=== PATIENT | female | born 1945 | race Caucasian/White ===

== ENCOUNTER → 2017-03-16 | Outpatient (CLI) | payer MEDICARE, OTHER ==
--- NOTE | 2017-03-16 15:26 | RADIOLOGY REPORT (SQ) ---
EXAM DESCRIPTION: HIPS BILATERAL COMPLETED DATE/TIME: 03/16/2017 3:06 pm REASON FOR STUDY: PAIN IN RIGHT HIP,PAIN IN LEFT HIP M25.552 PAIN IN LEFT HIP M25.551 PAIN IN RIGH T HIP COMPARISON: None. NUMBER OF VIEWS: Two views TECHNIQUE: AP pelvis and additional frog-leg view of both hips. LIMITATIONS: None. FINDINGS: MINERALIZATION: Normal. HIPS: There is mild narrowing of the joint space in the right hip. No significant osteophytes are se en. There is no acute fracture or dislocation. PELVIS AND SACRUM: No acute fracture or dislocation. No worrisome bone lesions. PUBIS AND ISCHIUM: No acute fracture. LOWER LUMBAR SPINE: Scoliosis and degenerative disc changes are present. SOFT TISSUES: No findings. OTHER: No other significant finding. IMPRESSION: Minimal degenerative joint changes in the right hip. Lumbar degenerative disc changes a nd scoliosis. TECHNICAL DOCUMENTATION: JOB ID: [id number] [employer]- All Rights Reserved
== END ==
LOC: OD 14:33
PROVIDERS: ATTEND Neurological Surgery
DX: M25.551 Pain in right hip (principal); M25.552 Pain in left hip
CPT/HCPCS: 73522

== ENCOUNTER 2017-05-14 14:58 | Emergency (ER) | payer MEDICARE, OTHER ==
[2017-05-14] MEDS ORDERED: NORMAL SALINE 500 ML IV PRN ×2 (15:24→17:23)
[2017-05-14] MEDS ORDERED: MORPHINE SULFATE 10 MG/ML INJ IV PRN (15:25)
[2017-05-14] MEDS ORDERED: METOCLOPRAMIDE HCL INJ/PF 10 MG/2 ML SDV IV ONE (15:25)
[2017-05-14] MEDS ORDERED: DIPHENHYDRAMINE HCL 50 MG/ML VIAL IV ONE (15:25)
--- NOTE | 2017-05-14 15:27 | ER Document Report ---
ED General - General Chief Complaint: Neck Problem Stated Complaint: NECK PAIN Time Seen by Provider: 05/14/17 15:15 Mode of Arrival: Ambulatory Information source: Patient Notes: This is a 72-year-old female with a history of hypertension, arthritis who presents to the emergency room with severe neck pain. Patient states that she was moving her head around last night and started having midline pain which got worse. She states that moving her neck causes sharp severe pain. She denies any fever, chills. He does report that she had developed nausea with vomiting. TRAVEL OUTSIDE OF THE [place] IN LAST 30 DAYS: No - HPI Onset: Just prior to arrival Onset/Duration: Gradual Quality of pain: Dull Severity: Moderate Pain Level: 2 Associated symptoms: Chills. denies: Fever, Shortness of breath Exacerbated by: Movement Relieved by: Denies Similar symptoms previously: No Recently seen / treated by doctor: No - Related Data Allergies/Adverse Reactions: acetaminophen [From Percocet] Allergy (Verified 05/14/17 15:01) amoxicillin [From Augmentin] Allergy (Verified 05/14/17 15:01) clavulanic acid [From Augmentin] Allergy (Verified 05/14/17 15:01) oxycodone [From Percocet] Allergy (Verified 05/14/17 15:01) Past Medical History - General Information source: Patient - Social History Smoking Status: Never Smoker Cigarette use (# per day): No Chew tobacco use (# tins/day): No Frequency of alcohol use: None Drug Abuse: None Lives with: Family Family History: Reviewed & Not Pertinent Patient has suicidal ideation: No Patient has homicidal ideation: No - Past Medical History Cardiac Medical History: Reports: Hx Hypertension Pulmonary Medical History: Reports: None Neurological Medical History: Reports: None Endocrine Medical History: Reports: None Renal/ Medical History: Reports: None Malignancy Medical History: Reports: None GI Medical History: Reports: None Musculoskeltal Medical History: Reports Hx Arthritis Skin Medical History: Reports None Psychiatric Medical History: Reports: None Traumatic Medical History: Reports: None Infectious Medical History: Reports: None Surgical Hx: Negative Review of Systems - Review of Systems Constitutional: Chills. denies: Fever EENT: No symptoms reported Cardiovascular: No symptoms reported Respiratory: No symptoms reported Gastrointestinal: No symptoms reported Genitourinary: No symptoms reported Female Genitourinary: No symptoms reported Musculoskeletal: See HPI Skin: No symptoms reported Hematologic/Lymphatic: No symptoms reported Neurological/Psychological: No symptoms reported. denies: Weakness, Paralysis, Numbness Physical Exam - Vital signs Vitals: Temp Pulse Resp BP Pulse Ox 97.4 F 71 16 136/53 H 96 05/14/17 15:00 05/14/17 15:00 05/14/17 15:00 05/14/17 15:00 05/14/17 15:00 Notes: Physical exam: GENERAL: 72-year-old female, alert, conversant, oriented 3. She is nontoxic appearing. HEAD: Atraumatic, normocephalic. EYES: Pupils equal round and reactive to light, extraocular movements intact, sclera anicteric, conjunctiva are normal. ENT: TMs normal, nares patent, oropharynx clear without exudates. Moist mucous membranes. NECK: Patient has limited range of motion due to spasm and pain. The pain appears to be midline. There is no swelling of the neck or any skin changes or warmth to the area. She does appear to have some sternocleidomastoid spasm on the right. There is no fluctuance or suggestive of infection. LUNGS: Breath sounds clear to auscultation bilaterally and equal. No wheezes rales or rhonchi. HEART: Regular rate and rhythm without murmurs, rubs or gallops. ABDOMEN: Soft, normoactive bowel sounds. No tenderness to palpation. No guarding, no rebound. No masses appreciated. EXTREMITIES: Normal range of motion, no pitting or edema. No clubbing or cyanosis. NEUROLOGICAL: Cranial nerves III through XII grossly intact. Normal speech, moving all extremities. Patient has no photophobia. The patient does not complain of significant headache at the time of my exam. She tolerates a light without any problem. PSYCH: Normal mood, normal affect. SKIN: Warm, Dry, normal turgor, no rashes or lesions noted. Course - Re-evaluation Re-evalutation: 05/14/17 17:25 Patient states that the neck pain did improve after Toradol and morphine. She tolerated the MRI fine. The results are pending. On review of her labs, she does have a leukocytosis. I again question her about the events: She denies having any fever, she does report to having chills. She has had a mild headache but she states it has been very tolerable. She has no photophobia at all. I reexamined her: She appears to have pain and spasm of the neck when she moves. She is nontoxic appearing, does not have photophobia, does not complain of a significant headache, her lungs are clear and her heart is regular and her abdomen is soft and nontender. We will check a chest x-ray and a urine. She did have spinal shots earlier in the week but they were in the lumbar region. She denies any significant lumbar pain. 05/14/17 18:36 Note: Patient would like to go home. I have reviewed the MRI with the radiologist which shows significant degenerative disease. There was a small amount of marrow edema that the radiologist felt looked more appropriate with a history of degenerative changes. In other words, there is no acute infectious process evident. On repeat physical exam, patient denies headache. She does have a lot of pain and spasm in the neck without any radicular findings or upper or lower extremity weakness. She has not had any bowel or bladder dysfunction or any saddle anesthesia. She does states she was pushing a cart at [facility] for approximately an hour yesterday because there were no motorized carts. It is possible that she is having a lot of pain associated with this. There are no skin changes around the neck suggestive of inflammation or infection. In regards to the leukocytosis, other than some chills, the patient has been asymptomatic. She has had UTIs in the past and I am going to treat her for an early UTI because she does have a leukocytosis. The patient did have a spinal injection 2 days ago. There is no skin changes over the site. She has had no significant lower back pain over where the injection was. So at this point, it is not clear that that would be the cause of leukocytosis. It may be possible that the steroid shot itself. I discussed this with Dr. Rene who agreed with the plan (he is covering for Dr. Aguilar). I told her that them in the ER tomorrow and we will see how she feels over the following day. Additionally, I have advised her to see Dr. Aguilar on Tuesday. 05/14/17 18:54 05/14/17 18:55 - Vital Signs Vital signs: Temp Pulse Resp BP Pulse Ox 97.4 F 71 16 136/53 H 96 05/14/17 15:05 05/14/17 15:05 05/14/17 15:05 05/14/17 15:05 05/14/17 15:05 - Laboratory Result Diagrams: 05/14/17 15:43 05/14/17 15:43 Laboratory results interpreted by me: 05/14/17 05/14/17 15:43 15:43 WBC 20.7 H RBC 5.41 H Hgb 15.6 H Seg Neuts % (Manual) 86 H Lymphocytes % (Manual) 5 L Abs Neuts (Manual) 17.8 H Abs Monocytes (Manual) 1.9 H Sodium 135.2 L Glucose 210 H - Diagnostic Test Radiology reviewed: Image reviewed, Reports reviewed - MRI shows significant degenerative disease. Discharge - Discharge Clinical Impression: Neck pain and spasm, UTI Condition: Stable Disposition: HOME, SELF-CARE Additional Instructions: As we discussed, the MRI showed significant degenerative disease in the neck. This in combination with pushing the cart for an hour yesterday could be contributing to the pain and spasm. You were started on levofloxacin for an early urine infection. Blood and urine cultures were sent and will take a few days to come back. Return to the emergency room tomorrow if you feel like the pain is getting worse , numbness or weakness to the upper extremities or any concerns or getting worse. I am in the emergency room tomorrow. Continue with the hydrocodone for pain (Rangely is the same thing as Vicodin). Continue the tizanidine for muscle spasms. Can use heating pad to the neck Follow-up with Dr. Aguilar on Tuesday. Prescriptions: Tizanidine HCl 2 mg PO Q8HP PRN #14 tablet PRN Reason: Hydrocodone/Acetaminophen [Rangely 5-325 Tablet] 1 - 2 tab PO ASDIR PRN #25 tab PRN Reason: Levofloxacin 500 mg PO DAILY #5 tablet Referrals: LYLE AGUILAR MD [Primary Care Provider] - Follow up as needed
[2017-05-14] MEDS ORDERED: KETOROLAC TROMETHAMINE INJ/PF 30 MG/1 ML SDV IV ONE (15:31)
[2017-05-14 15:55] LABS: HEMATOCRIT 45.8 % (36.0-47.0); HEMOGLOBIN 15.6 g/dL (12.0-15.5); MEAN CORPUSCULAR HEMOGLOBIN 28.8 pg (27.0-33.4); MEAN CORPUSCULAR VOLUME 85 fl (80-97); RED BLOOD COUNT 5.41 10^6/uL (3.72-5.28); RED CELL DISTRIBUTION WIDTH 13.6 % (11.5-14.0); WHITE BLOOD COUNT 20.7 10^3/uL (4.0-10.5)
[2017-05-14 16:12] LABS: ALANINE AMINOTRANSFERASE 30 U/L (9-52); ALBUMIN 4.3 g/dL (3.5-5.0); ALKALINE PHOSPHATASE 75 U/L (38-126); ANION GAP 13 (5-19); ASPARTATE AMINO TRANSFERASE 16 U/L (14-36); BASOPHILS % (MANUAL) 0 % (0-2); BILIRUBIN,DIRECT 0.2 mg/dL (0.0-0.4); BILIRUBIN,TOTAL 0.5 mg/dL (0.2-1.3); BLOOD UREA NITROGEN 15 mg/dL (7-20); CALCIUM 9.4 mg/dL (8.4-10.2); CARBON DIOXIDE 24 mmol/L (22-30); CHLORIDE 98 mmol/L (98-107); CREATININE RESULT 0.76 mg/dL (0.52-1.25); EOSINOPHILS % (MANUAL) 0 % (0-6); GLUCOSE 210 mg/dL (75-110); LYMPHOCYTES % (MANUAL) 5 % (13-45); SODIUM 135.2 mmol/L (137-145); TOTAL CELLS COUNTED 100; TOTAL PROTEIN 7.4 g/dL (6.3-8.2)
[2017-05-14 16:14] LABS: POLYCHROMASIA SLIGHT
[2017-05-14] MEDS ORDERED: MORPHINE SULFATE 10 MG/ML INJ IV ONE (17:16)
--- NOTE | 2017-05-14 17:30 | RADIOLOGY REPORT (SQ) ---
EXAM DESCRIPTION: MRI CERVICAL SPINE WITHOUT COMPLETED DATE/TIME: 05/14/2017 5:05 pm REASON FOR STUDY: neck pain COMPARISON: None. TECHNIQUE: Sagittal and Axial imaging includes T1, T2, STIR and gradient echo sequences. LIMITATIONS: None. FINDINGS: ALIGNMENT: Straightening of the normal lordotic curvature may be positional. VERTEBRAE: Intact. BONE MARROW: Marrow edema is seen involving the C3/4 level, consistent with active degenerative merino e. DISCS: Disc desiccation and loss of height is seen at all levels. HARDWARE: None in the spine. CORD AND BASE OF BRAIN: Normal in size and signal intensity. SOFT TISSUES: No soft tissue masses. C1-C2: No significant spinal stenosis. C2-C3: No significant spinal stenosis or exit foraminal stenosis. C3-C4: Disc osteophyte complex asymmetric to the left results an central canal narrowing and contouri ng of spinal cord. Moderate bilateral neural foraminal narrowing. C4-C5: Disc osteophyte complex asymmetric to the left results in mild narrowing of the central canal without cord contact. Mild bilateral neural foraminal narrowing. C5-C6: Disc osteophyte complex asymmetric to the left results in mild central canal narrowing and mod erate right, severe left neural foraminal narrowing. C6-C7: Uncovertebral hypertrophy, left greater than right results in moderate bilateral neural forami nal narrowing. C7-T1: No significant spinal stenosis or exit foraminal stenosis. UPPER THORACIC: Incompletely imaged. No significant spinal stenosis or exit foraminal stenosis. OTHER: No other significant finding. IMPRESSION: Multilevel cervical spondylosis most significantly at the C3/4 level which demonstrates central canal stenosis and contouring of the spinal cord. TECHNICAL DOCUMENTATION: JOB ID: [id number] [employer]- All Rights Reserved
--- NOTE | 2017-05-14 18:05 | RADIOLOGY REPORT (SQ) ---
EXAM DESCRIPTION: CHEST PA/LAT COMPLETED DATE/TIME: 05/14/2017 5:53 pm REASON FOR STUDY: leukocytosis COMPARISON: None. EXAM PARAMETERS: NUMBER OF VIEWS: two views TECHNIQUE: Digital Frontal and Lateral radiographic views of the chest acquired. RADIATION DOSE: NA LIMITATIONS: none FINDINGS: LUNGS AND PLEURA: No opacities, masses or pneumothorax. No pleural effusion. MEDIASTINUM AND HILAR STRUCTURES: No masses or contour abnormalities. HEART AND VASCULAR STRUCTURES: Heart normal size. No evidence for failure. BONES: No acute findings. Bilateral acromioclavicular arthropathy. HARDWARE: None in the chest. OTHER: No other significant finding. IMPRESSION: NO SIGNIFICANT RADIOGRAPHIC FINDING IN THE CHEST. TECHNICAL DOCUMENTATION: JOB ID: [id number] [employer]- All Rights Reserved
[2017-05-14 18:15] LABS: AMORPHOUS SEDIMENT,URINE TRACE /HPF; APPEARANCE,URINE CLEAR; BILIRUBIN,URINE NEGATIVE (NEGATIVE); GLUCOSE, URINE NEGATIVE (NEGATIVE); KETONES,URINE NEGATIVE (NEGATIVE); LEUKOCYTE ESTERASE,URINE NEGATIVE (NEGATIVE); NITRITE,URINE NEGATIVE (NEGATIVE); PROTEIN,URINE NEGATIVE (NEGATIVE); URINE SPECIFIC GRAVITY 1.002; UROBILINOGEN,URINE NEGATIVE mg/dL (<2.0)
[2017-05-14] MEDS ORDERED: LEVOFLOXACIN 500 MG TABLET PO ONE ×2 (18:30→18:48)
[2017-05-14] MEDS ORDERED: LEVOFLOXACIN 750 MG/D5W RTU 750 MG/150 ML RTUPB IV ONE (18:35)
[2017-05-14 19:22] VITALS: BP 146/64
== END 2017-05-14 19:06 | disposition home or self-care (01) ==
LOC: ER 14:58
DX: M47.9 Spondylosis, unspecified (principal); N39.0 Urinary tract infection, site not specified; M54.2 Cervicalgia; R11.2 Nausea with vomiting, unspecified; R68.83 Chills (without fever); R25.2 Cramp and spasm; D72.829 Elevated white blood cell count, unspecified; R51 Headache; I10 Essential (primary) hypertension; Z88.6 Allergy status to analgesic agent; Z88.5 Allergy status to narcotic agent; Z88.0 Allergy status to penicillin; Z98.890 Other specified postprocedural states
CPT/HCPCS: 96376; 99284; 96361; 96374; 96375; 36415; 87086; 85025; 80053; 81001; 72141; 71020; J1200; A9270; J1885; J2765; J2270; J7040

== ENCOUNTER 2017-05-16 17:21 | Inpatient (IN) | payer MEDICARE, OTHER ==
[2017-05-16 18:27] LABS: HEMATOCRIT 45.6 % (36.0-47.0); HEMOGLOBIN 15.7 g/dL (12.0-15.5); MEAN CORPUSCULAR HEMOGLOBIN 28.9 pg (27.0-33.4); MEAN CORPUSCULAR HGB CONC 34.3 g/dL (32.0-36.0); MEAN CORPUSCULAR VOLUME 84 fl (80-97); PLATELET COUNT 156 10^3/uL (150-450); RED BLOOD COUNT 5.42 10^6/uL (3.72-5.28); RED CELL DISTRIBUTION WIDTH 13.2 % (11.5-14.0); WHITE BLOOD COUNT 17.6 10^3/uL (4.0-10.5)
[2017-05-16 18:45] LABS: ALANINE AMINOTRANSFERASE 32 U/L (9-52); ALBUMIN 3.6 g/dL (3.5-5.0); ALKALINE PHOSPHATASE 60 U/L (38-126); ANION GAP 13 (5-19); ASPARTATE AMINO TRANSFERASE 51 U/L (14-36); BILIRUBIN,DIRECT 0.3 mg/dL (0.0-0.4); BILIRUBIN,TOTAL 0.7 mg/dL (0.2-1.3); BLOOD UREA NITROGEN 24 mg/dL (7-20); CALCIUM 9.5 mg/dL (8.4-10.2); CARBON DIOXIDE 23 mmol/L (22-30); CHLORIDE 99 mmol/L (98-107); GLUCOSE 232 mg/dL (75-110); MAGNESIUM 2.1 mg/dL (1.6-2.3); POTASSIUM 3.8 mmol/L (3.6-5.0); SODIUM 135.4 mmol/L (137-145); TOTAL PROTEIN 6.2 g/dL (6.3-8.2)
[2017-05-16] MEDS ORDERED: NALOXONE HCL INJ/PF 0.4 MG/1 ML SDV IV ONE (18:49)
[2017-05-16] MEDS ORDERED: NORMAL SALINE 1000 ML 1,000 ML IV ONE (18:50)
[2017-05-16] MEDS ORDERED: NALOXONE HCL INJ/PF 0.4 MG/1 ML SDV ONE (18:50)
[2017-05-16 18:52] LABS: ALCOHOL < 10 mg/dL (NONE DETECTED)
--- NOTE | 2017-05-16 18:52 | ER Document Report ---
ED General - General Chief Complaint: Altered Mental Status Stated Complaint: ALTERED MENTAL STATUS Time Seen by Provider: 05/16/17 18:22 Cannot obtain history due to: Altered mental status Notes: Patient is a 72-year-old female who presents with altered mental status. The patient is unable to provide meaningful history as she is delirious, believes that it is the year 1992, and is unable to tell me who the current president of [employer] is. Her [id number] at the bedside states that this is very unusual for the patient and that she is normally totally functionally independent. The patient was seen in this emergency department 2 days ago for musculoskeletal neck pain, had a normal MRI at that time, was noted to have a leukocytosis. She was empirically placed on levofloxacin for possible urinary tract infection. The patient is unable to tell me any additional meaningful details of why she is here in the emergency department or what is bothering her. She was brought here by her family today. TRAVEL OUTSIDE OF THE [place] IN LAST 30 DAYS: No - Related Data Allergies/Adverse Reactions: acetaminophen [From Percocet] Allergy (Verified 05/14/17 15:01) amoxicillin [From Augmentin] Allergy (Verified 05/14/17 15:01) clavulanic acid [From Augmentin] Allergy (Verified 05/14/17 15:01) oxycodone [From Percocet] Allergy (Verified 05/14/17 15:01) Home Medications: Current Home Medications Benzonatate [Tessalon Perle 100 mg Capsule] 100 mg PO Q8HP PRN 05/16/17 [History ] Hydrocodone/Acetaminophen [[place] 5-325 Tablet] 1 each PO Q6HP PRN 05/16/17 [ History] Levothyroxine Sodium [Synthroid 0.112 mg Tablet] 112 mcg PO Q6AM 05/16/17 [ History] Tizanidine HCl [Zanaflex 4 Mg Tablet] 2 mg PO Q8HP PRN 05/16/17 [History] Past Medical History - General Information source: Relative Cannot obtain history due to: Altered mental status - Social History Smoking Status: Unknown if Ever Smoked Frequency of alcohol use: None Drug Abuse: None Lives with: Family Family History: Reviewed & Not Pertinent - Past Medical History Cardiac Medical History: Reports: Hx Hypertension Endocrine Medical History: Reports: Hx Diabetes Mellitus Type 2 Renal/ Medical History: Denies: Hx Peritoneal Dialysis Musculoskeltal Medical History: Reports Hx Arthritis Past Surgical History: Reports: Hx Tubal Ligation Review of Systems - Review of Systems -: Yes ROS unobtainable due to patient's medical condition Physical Exam - Vital signs Vitals: Resp BP Pulse Ox 21 H 109/55 L 93 05/16/17 17:43 05/16/17 17:43 05/16/17 17:43 Interpretation: Hypoxic, Tachypneic Notes: PHYSICAL EXAMINATION: GENERAL: Appears ill but in no acute distress. HEAD: Atraumatic, normocephalic. EYES: Pupils equal round and reactive to light, extraocular movements intact, sclera anicteric, conjunctiva are normal. ENT: nares patent, oropharynx clear without exudates. Very dry mucous membranes. NECK: Normal range of motion, supple without lymphadenopathy LUNGS: Moderate tachypnea but no distress. Breath sounds clear bilaterally. No wheezes or rales. HEART: Regular rate and rhythm without murmurs ABDOMEN: Soft, nontender, normoactive bowel sounds. No guarding, no rebound. No masses appreciated. EXTREMITIES: no pitting or edema. No cyanosis. NEUROLOGICAL: Face symmetric. Tongue protrudes midline. Extraocular motions intact. Pupils are 2 mm and equally reactive. Speech is slow, disorganized. Gait deferred. 5 out of 5 strength in both the distal and proximal upper and lower extremities bilaterally. Sensation is grossly intact throughout. PSYCH: Oriented to person, place, month but not year or current events. She does not know why she is here in the hospital SKIN: Warm, Dry, normal turgor, no rashes or lesions noted. Course - Re-evaluation Re-evalutation: 05/16/17 18:50 Patient presents altered, clearly dehydrated on examination with vital signs that show mild hypoxemia and hyperventilation. Patient is quite disoriented, believes it is 1995, is unable to tell me the president of [facility], but is able to tell me that she is here in the hospital at [facility] and that it is April. This is very far from baseline which is normally totally functionally independent. The majority of the history provided by the sister-in -law at the bedside reports patient has had a functional decline over the last 1 year but particularly since this weekend she has deteriorated immensely. Physical examination does not show any focal neurologic deficits. There is no obvious trauma to the head, neck, back, abdomen, chest or the extremities. Patient did receive opiate pain medications and some of her altered mental status may be secondary to this although she is not hypoventilatory. Will give a trial dose of naloxone, begin IV resuscitation with fluids, and proceed with labs, CT of the head given the report of fall and mental altered mental status, and reassess the patient. I anticipate the patient will require hospitalization and at this juncture she does not have capacity. 05/16/17 19:09 Laboratories show an acute kidney injury, GFR is 30 down from above 61 patient was here 2 days ago. Urinalysis is also consistent with acute pyelonephritis. Unfortunately, patient was placed on a fluoroquinolone which has poor coverage for E. coli in our community and may also be part of why patient is altered. Patient was given trial dose of naloxone without any clinical improvement. Will begin ceftriaxone, obtain blood and urine cultures, and plan for hospitalization 05/16/17 20:13 I discussed the case with Dr. Keith who is agreed to hospitalize the patient. - Vital Signs Vital signs: Temp Pulse Resp BP Pulse Ox 99.8 F 82 24 H 136/62 H 95 05/16/17 22:01 05/16/17 20:00 05/16/17 22:01 05/16/17 22:01 05/16/17 22:01 - Laboratory Result Diagrams: 05/16/17 18:13 05/16/17 18:13 Laboratory results interpreted by me: 05/16/17 05/16/17 05/16/17 18:13 18:13 18:30 WBC 17.6 H RBC 5.42 H Hgb 15.7 H Seg Neuts % (Manual) 84 H Lymphocytes % (Manual) 11 L Abs Neuts (Manual) 14.8 H Sodium 135.4 L BUN 24 H Creatinine 1.66 H Est GFR ( Amer) 37 L Est GFR (Non-Af Amer) 30 L Glucose 232 H AST 51 H Total Protein 6.2 L Urine Protein >=500 H Urine Glucose (UA) 50 H Urine Ketones 20 H Urine Blood MODERATE H - Diagnostic Test Radiology reviewed: Image reviewed, Reports reviewed Radiology results interpreted by me: 05/16/17 20:13 Chest x-ray: Cardiomegaly, no overt pulmonary edema, no infiltrate Discharge - Discharge Clinical Impression: Pyelonephritis, Acute kidney injury Altered mental status Qualifiers: Altered mental status type: delirium Qualified Code(s): R41.0 - Disorientation , unspecified Condition: Fair Disposition: ADMITTED INPATIENT Admitting Provider: Sagar Unit Admitted: Telemetry
[2017-05-16 18:55] LABS: ABSOLUTE LYMPHOCYTES# (MANUAL) 1.9 10^3/uL (0.5-4.7); ABSOLUTE MONOCYTES # (MANUAL) 0.9 10^3/uL (0.1-1.4); ABSOLUTE NEUTROPHILS# (MANUAL) 14.8 10^3/uL (1.7-8.2); BASOPHILS % (MANUAL) 0 % (0-2); EOSINOPHILS % (MANUAL) 0 % (0-6); LYMPHOCYTES % (MANUAL) 11 % (13-45); MONOCYTES % (MANUAL) 5 % (3-13); SEGMENTED NEUTROPHILS % (MAN) 84 % (42-78); TOTAL CELLS COUNTED 100
[2017-05-16 18:58] LABS: PLATELET COMMENT ADEQUATE; PLATELET LARGE PRESENT; TOXIC GRANULATION SLIGHT
[2017-05-16 19:06] LABS: AMORPHOUS SEDIMENT,URINE TRACE /HPF; APPEARANCE,URINE CLOUDY; BILIRUBIN,URINE NEGATIVE (NEGATIVE); COLOR,URINE AMBER; GLUCOSE, URINE 50 mg/dL (NEGATIVE); KETONES,URINE 20 mg/dL (NEGATIVE); LEUKOCYTE ESTERASE,URINE NEGATIVE (NEGATIVE); NITRITE,URINE NEGATIVE (NEGATIVE); PROTEIN,URINE >=500 mg/dL (NEGATIVE); URINE SPECIFIC GRAVITY 1.019; UROBILINOGEN,URINE NEGATIVE mg/dL (<2.0)
[2017-05-16] MEDS ORDERED: CEFTRIAXONE 1 GM/D5W RTU 1 GM/50 ML RTUPB IV ONE (19:09)
[2017-05-16 19:22] LABS: URINE AMPHETAMINES SCREEN NEGATIVE; URINE BARBITURATES SCREEN NEGATIVE; URINE BENZODIAZEPINES SCREEN NEGATIVE; URINE COCAINE SCREEN NEGATIVE; URINE MARIJUANA (THC) SCREEN NEGATIVE; URINE METHADONE SCREEN NEGATIVE; URINE PHENCYCLIDINE SCREEN NEGATIVE
--- NOTE | 2017-05-16 19:31 | RADIOLOGY REPORT (SQ) ---
EXAM DESCRIPTION: CHEST SINGLE VIEW COMPLETED DATE/TIME: 05/16/2017 7:16 pm REASON FOR STUDY: hypoxia, ams COMPARISON: 05/14/2017. EXAM PARAMETERS: NUMBER OF VIEWS: One view. TECHNIQUE: Single frontal radiographic view of the chest acquired. RADIATION DOSE: NA LIMITATIONS: None. FINDINGS: LUNGS AND PLEURA: No opacities, masses or pneumothorax. No pleural effusion. MEDIASTINUM AND HILAR STRUCTURES: No masses. Contour normal. HEART AND VASCULAR STRUCTURES: Borderline cardiomegaly. Mild vascular congestion. BONES: No acute findings. HARDWARE: None in the chest. OTHER: No other significant finding. IMPRESSION: BORDERLINE CARDIOMEGALY WITH MILD VASCULAR CONGESTION. TECHNICAL DOCUMENTATION: JOB ID: [id number] [employer]- All Rights Reserved
--- NOTE | 2017-05-16 19:49 | EKG REPORT ---
SEVERITY:- ABNORMAL ECG - SINUS RHYTHM PROBABLE LEFT ATRIAL ABNORMALITY PROBABLE LEFT VENTRICULAR HYPERTROPHY INFERIOR INFARCT, AGE INDETERMINATE BORDERLINE PROLONGED QT INTERVAL : Confirmed by: Drew Watson MD 16-May-2017 19:48:24
--- NOTE | 2017-05-16 19:49 | RADIOLOGY REPORT (SQ) ---
EXAM DESCRIPTION: CT HEAD WITHOUT COMPLETED DATE/TIME: 05/16/2017 7:39 pm REASON FOR STUDY: ams COMPARISON: None. TECHNIQUE: Axial images acquired through the brain without intravenous contrast. Images reviewed wi th bone, brain and subdural windows. Images stored on PACS. All CT scanners at this facility use dose modulation, iterative reconstruction, and/or weight based d osing when appropriate to reduce radiation dose to as low as reasonably achievable (ALARA). [facility]: Dose Right [facility]: CareDose [facility]: Dose Right [facility]: Teradose 4D [facility]: GreenGoose! RADIATION DOSE: CT Rad equipment meets quality standard of care and radiation dose reduction techniq ues were employed. CTDIvol: 67.0 mGy. DLP: 1182 mGy-cm. mGy. LIMITATIONS: None. FINDINGS: VENTRICLES: Normal size and contour. CEREBRUM: No masses. No hemorrhage. No midline shift. No evidence for acute infarction. Normal gra y/white matter differentiation. No areas of low density in the white matter. CEREBELLUM: No masses. No hemorrhage. No alteration of density. No evidence for acute infarction. EXTRAAXIAL SPACES: No fluid collections. No masses. ORBITS AND GLOBE: No intra- or extraconal masses. Normal contour of globe without masses. CALVARIUM: No fracture. PARANASAL SINUSES: No fluid or mucosal thickening. SOFT TISSUES: No mass or hematoma. OTHER: No other significant finding. IMPRESSION: NORMAL BRAIN CT WITHOUT CONTRAST. EVIDENCE OF ACUTE STROKE: NO. COMMENT: Quality ID # [id number]: Final reports with documentation of one or more dose reduction techniques (e.g., Automated exposure control, adjustment of the mA and/or kV according to patient size, use of iterative reconstruction technique) TECHNICAL DOCUMENTATION: JOB ID: [id number]- All Rights Reserved
[2017-05-17] MEDS ORDERED: DEXTROSE 50%-WATER SYRINGE 25 GM/50 ML DOSE IV PRN (00:52)
[2017-05-17] MEDS ORDERED: DEXTROSE 50%-WATER SYRINGE 12.5 GM/25 ML DOSE IV PRN (00:52)
[2017-05-17] MEDS ORDERED: DEXTROSE 40% GEL 15 GM TUBE X 2 PO PRN (00:52)
[2017-05-17] MEDS ORDERED: INSULIN LISPRO 100 UNIT/ML 3 ML VIAL SUBCUT PRN (00:52)
[2017-05-17] MEDS ORDERED: GLUCAGON,HUMAN RECOMB 1 MG INJ IM PRN (00:52)
[2017-05-17] MEDS ORDERED: DEXTROSE 40% GEL 15 GM TUBE PO PRN (00:52)
[2017-05-17] MEDS: NORMAL SALINE 1000 ML 1,000 ML IV PRN (01:00)
[2017-05-17 07:57] LABS: HEMATOCRIT 41.7 % (36.0-47.0); HEMOGLOBIN 14.3 g/dL (12.0-15.5); MEAN CORPUSCULAR HEMOGLOBIN 28.8 pg (27.0-33.4); MEAN CORPUSCULAR HGB CONC 34.4 g/dL (32.0-36.0); MEAN CORPUSCULAR VOLUME 84 fl (80-97); PLATELET COUNT 134 10^3/uL (150-450); RED BLOOD COUNT 4.97 10^6/uL (3.72-5.28); RED CELL DISTRIBUTION WIDTH 13.4 % (11.5-14.0); WHITE BLOOD COUNT 14.7 10^3/uL (4.0-10.5)
[2017-05-17 08:02] LABS: ANION GAP 10 (5-19); BLOOD UREA NITROGEN 26 mg/dL (7-20); CARBON DIOXIDE 23 mmol/L (22-30); CHLORIDE 106 mmol/L (98-107); GLUCOSE 155 mg/dL (75-110); POTASSIUM 3.5 mmol/L (3.6-5.0); SODIUM 139.4 mmol/L (137-145)
[2017-05-17 08:22] LABS: ABSOLUTE LYMPHOCYTES# (MANUAL) 0.6 10^3/uL (0.5-4.7); ABSOLUTE MONOCYTES # (MANUAL) 1.9 10^3/uL (0.1-1.4); ABSOLUTE NEUTROPHILS# (MANUAL) 12.2 10^3/uL (1.7-8.2); BAND NEUTROPHILS % (MANUAL) 2 % (3-5); BASOPHILS % (MANUAL) 0 % (0-2); EOSINOPHILS % (MANUAL) 0 % (0-6); LYMPHOCYTES % (MANUAL) 3 % (13-45); MONOCYTES % (MANUAL) 13 % (3-13); SEGMENTED NEUTROPHILS % (MAN) 81 % (42-78); TOTAL CELLS COUNTED 100
[2017-05-17 08:23] LABS: PLATELET COMMENT DECREASED; RBC MORPHOLOGY COMMENT NORMO-CYTIC/CHROMIC
[2017-05-17] MEDS: CEFTRIAXONE 1 GM/D5W RTU 1 GM/50 ML RTUPB IV SCH (10:12)
--- NOTE | 2017-05-17 11:37 | Physician Advisory Note ---
Physician Advisor ProgressNote .: [facility] medical [facility] for this patient. Physician Advisor Statement: Please consider documenting, if you agree: 1. Findings supporting dx of acute pyelo. - U/A on 05/14 = no LE, no nitrates, no bld/pro/glc/ketones, 3 WBC. U/A on 05/16 = no LE, no nitrates, (+)blood/pro/glc/ketones, 1+ bacteria. - WBC on 05/14 = 20.7, w/Hgb 15.6. WBC on 05/16 = 17.6, w/Hgb 15.7. - C/o on 05/14 = neck pain, having had spinal injection(s) in past week. - C/o on 05/16 = AMS, appearing dehydrated & tachypneic, with SAHIL/ARF, wheezes per ED nurse, hypoxemia, intermittent tachycardia. 2. "ARF, likely due to ____, now resolved" [intravascular volume depletion from ___? ...] 3. "Acute metabolic encephalopathy, likely due to ____", or "delirium, suspect due to ____", or ... 4. "Acute hyponatremia, resolved" 5. Likely cause of hypoxemia - Could pt have an acute process going on in lungs not seen on initial CXR due to volume depletion? - (+)frequent tachypnea on 05/16, nursing noted wheezing in ED assessment, hypoxemia with sats as low as 92% on 2L O2 documented (P/F ratio 229) 6. Medical necessity - Please document reasons she continues to need hospitalization tonight - such as "mental status not yet back to baseline", "continued volume depletion", "continued acute leukocytosis", "unclear source of infection", "unclear source of hypoxemia", "continued need for O2", ... Status: 72yo Medicare pt with underlying DM-2, HTN, some functional decline x 1yr, but usually independent functionally. In ED 05/14 with c/o neck pain, said had had spinal injection(s) in past week. MRI normal. WBC 20.7 w/Hgb 15.6. Given Levaquin for possible UTI (U/A results as above). Returned 05/16 with markedly abnormal mental status, tachypnea, hypotension, hypoxemia, appearing ill per ED provider, with speech slow & disorganized, unaware where she was, disoriented thinking, confused verbal output, GCS score 14, appearing clinically dehydrated, WBC 17.6 with left shift, HGb still 15.7, Na 135.4, BUN up to 24 w/Cr up to 1.66, glc 232, U/A as above, CXR read as mild vasc congestion (tho' clinical impression of dehydration & hemoconcentration). No improvement with naloxone. Given IVF, Rocephin. ED nurse documented wheezing & nausea. Nursing note at 21:14 mentions repositioning "to relieve back pain". Nursing assessment at 23:25 = oriented x 2 of 3, slow to respond, incontinent of urine. Sat as low as 92% on 2L O2, w/frequent tachypnea 21-29, intermittent tachycardia. Per today's nurse, pt has chronic back pain, & has c/o'd back pain both yesterday & today - hard for her to tell if back pain pt has this visit is acute on chronic or just chronic given mental status & no [place] given like she usually takes, in setting of continued AMS. Family does report her mental statu s is definitely improved today compared to yesterday, though still significantly different from baseline. She states pt has been reportedly having falls recently, which could have aggravated a chronic back pain. She reports pt's urine is still very dark today . Pt has GCS of 15 now, knows where she is but still quite altered mentally, "unaware of safety", sets off her bed alarms trying to get out of bed. Not incontinent of urine now - using bedpan. No N/V. No wheezing or cough noticed by this nurse, just decreased breath sounds. Remains on O2 2L, with o2 sats low 90s on that - "don't know how low she would go without the O2" [emphasis hers]. Still w/leukocytosis, though better. BUN/Cr ratio still >20. Appropriate for Inpt status. CK
[2017-05-17] MEDS: HYDROCODONE/ACETAMINOPHEN 5-325 MG TABLET PO PRN ×2 (13:46→20:41)
[2017-05-17] MEDS ORDERED: BENZONATATE 100 MG CAPSULE PO PRN (19:19)
[2017-05-17] MEDS ORDERED: (PENDING PHARMACY ID) (Ondansetron Hcl [Ondansetron Hcl] 4 MG) PO PRN (19:55)
--- NOTE | 2017-05-17 19:55 | PDOC H&P ---
History of Present Illness Admission Date/PCP: 05/16/17 20:28 LYLE AGUILAR History of Present Illness: NORA MENARD is a 72 year old female known to my practice who presented to the ED via EMS after she was found on the floor by son and [id number]. Patient was seen at our ED 2 days prior to her current presentation found to have significant leukocytosis and abnormal urinalysis. She was offered admission but declined and insisted upon discharge home on oral antibiotic. Son and [id number] reported episode of fall prior to her initial visit. Her neck MRI was essentially normal. At her present presentation patient was very confused and totally disoriented. Although she has been on oral Levofloxacin for 2 days she continue to demonstrate significant leukocytosis and worsening urinalysis indices. There was associated worsening renal function indices suggestive of dehydration or tubular necrosis. In view of her change in mental status and worsening laboratory evaluation findings, her family was advised hospitalization for further evaluation and management. Past Medical History Cardiac Medical History: Reports: Hypertension Endocrine Medical History: Reports: Diabetes Mellitus Type 2 Musculoskeltal Medical History: Reports: Arthritis Psychiatric Medical History: Reports: Depression Past Surgical History Past Surgical History: Reports: Tubal Ligation Social History Lives with: Family Smoking Status: Unknown if Ever Smoked Cigarettes Packs Per Day: 1 Number of Years Smokin Last Time Smoked: 05/15/2017 Frequency of Alcohol Use: None Hx Recreational Drug Use: No Hx Prescription Drug Abuse: No - Advance Directive Resuscitation Status: Full Code Family History Family History: Reviewed & Not Pertinent Parental Family History Reviewed: Yes Children Family History Reviewed: Yes Sibling(s) Family History Reviewed.: Yes Medication/Allergy Home Medications: Benzonatate [Tessalon Perle 100 mg Capsule] 100 mg PO Q8HP PRN 05/16/17 Hydrocodone/Acetaminophen [[place] 5-325 Tablet] 1 each PO Q6HP PRN 05/16/17 Levothyroxine Sodium [Synthroid 0.112 mg Tablet] 112 mcg PO Q6AM 05/16/17 Tizanidine HCl [Zanaflex 4 Mg Tablet] 2 mg PO Q8HP PRN 05/16/17 Allergies/Adverse Reactions: acetaminophen [From Percocet] Allergy (Verified 05/14/17 15:01) amoxicillin [From Augmentin] Allergy (Verified 05/14/17 15:01) clavulanic acid [From Augmentin] Allergy (Verified 05/14/17 15:01) oxycodone [From Percocet] Allergy (Verified 05/14/17 15:01) Review of Systems Constitutional: PRESENT: anorexia, chills, fever(s) Eyes: ABSENT: visual disturbances Ears: ABSENT: hearing changes Nose, Mouth, and Throat: ABSENT: as per HPI, headache(s), mouth pain, sore throat, vertigo, other Cardiovascular: ABSENT: chest pain, dyspnea on exertion, edema, orthropnea, palpitations Respiratory: ABSENT: cough, hemoptysis Gastrointestinal: ABSENT: abdominal pain, constipation, diarrhea, hematemesis, hematochezia, nausea, vomiting Genitourinary: PRESENT: difficulty urinating, dysuria Musculoskeletal: PRESENT: back pain - more of neck pain Integumentary: ABSENT: rash, wounds Neurological: PRESENT: abnormal gait - due to hip joint arthritis and pain, confusion - improved at the time of my evaluation with interval treatment with IV fluids hydrationa and IV antibiotic coverage Endocrine: ABSENT: polydipsia, polyphagia, polyuria Hematologic/Lymphatic: ABSENT: easy bleeding, easy bruising, lymphadenopathy Allergic/Immunologic: ABSENT: seasonal rhinorrhea Physical Exam Vital Signs: Temp Pulse Resp BP Pulse Ox 98.2 F 76 16 142/60 H 93 05/17/17 16:00 05/17/17 16:00 05/17/17 16:00 05/17/17 16:00 05/17/17 16:00 Intake & Output 05/16/17 05/17/17 05/18/17 06:59 06:59 06:59 Intake Total 630 1259 Balance 630 1259 Weight 84.1 kg 84.1 kg General appearance: PRESENT: obese Head exam: PRESENT: atraumatic, normocephalic Eye exam: PRESENT: conjunctiva pink, EOMI, PERRLA. ABSENT: scleral icterus Mouth exam: PRESENT: dry mucosa Respiratory exam: PRESENT: clear to auscultation rafat, decreased breath sounds - at lung bases Cardiovascular exam: PRESENT: RRR. ABSENT: diastolic murmur, rubs, systolic murmur Pulses: PRESENT: normal dorsalis pedis pul, +2 pedal pulses bilateral Vascular exam: PRESENT: normal capillary refill. ABSENT: pallor GI/Abdominal exam: PRESENT: normal bowel sounds, soft. ABSENT: distended, guarding, mass, organolmegaly, rebound, tenderness Rectal exam: PRESENT: deferred Extremities exam: ABSENT: pedal edema Musculoskeletal exam: PRESENT: deformity - related to joint involvement with arthritis Neurological exam: PRESENT: alert, awake, oriented to person, oriented to place , oriented to time, oriented to situation, CN II-XII grossly intact. ABSENT: motor sensory deficit Psychiatric exam: PRESENT: appropriate affect, normal mood. ABSENT: homicidal ideation, suicidal ideation Skin exam: PRESENT: dry, intact, warm. ABSENT: cyanosis, rash Results Laboratory Results: 05/17/17 07:37 05/17/17 07:37 05/17/17 05/17/17 07:37 07:37 WBC 14.7 H RBC 4.97 Hgb 14.3 Hct 41.7 MCV 84 MCH 28.8 MCHC 34.4 RDW 13.4 Plt Count 134 L Seg Neutrophils % Not Reportable Lymphocytes % Not Reportable Monocytes % Not Reportable Eosinophils % Not Reportable Basophils % Not Reportable Absolute Neutrophils Not Reportable Absolute Lymphocytes Not Reportable Absolute Monocytes Not Reportable Absolute Eosinophils Not Reportable Absolute Basophils Not Reportable Sodium 139.4 Potassium 3.5 L Chloride 106 Carbon Dioxide 23 Anion Gap 10 BUN 26 H Creatinine 0.93 Est GFR ( Amer) > 60 Est GFR (Non-Af Amer) 59 L Glucose 155 H Calcium 9.0 Impressions: Chest X-Ray 05/16/17 18:49 IMPRESSION: BORDERLINE CARDIOMEGALY WITH MILD VASCULAR CONGESTION. Head CT 05/16/17 18:49 IMPRESSION: NORMAL BRAIN CT WITHOUT CONTRAST. EVIDENCE OF ACUTE STROKE: NO. Assessment & Plan - Diagnosis (1) Acute pyelonephritis Is this a current diagnosis for this admission?: Yes Plan: See admitting attending orders. (2) Acute kidney injury Is this a current diagnosis for this admission?: Yes Plan: See admitting attending orders. (3) Toxic metabolic encephalopathy Is this a current diagnosis for this admission?: Yes Plan: See admitting attending orders. (4) HTN (hypertension) Qualifiers: Hypertension type: essential hypertension Qualified Code(s): I10 - Essential (primary) hypertension Is this a current diagnosis for this admission?: Yes Plan: See admitting attending orders. (5) Diabetes mellitus type 2 in obese Is this a current diagnosis for this admission?: Yes Plan: See admitting attending orders. (6) Hypothyroidism Qualifiers: Hypothyroidism type: unspecified Qualified Code(s): E03.9 - Hypothyroidism , unspecified Is this a current diagnosis for this admission?: Yes Plan: See admitting attending orders. (7) Osteoarthritis involving multiple joints on both sides of body Is this a current diagnosis for this admission?: Yes Plan: See admitting attending orders. - Time Time Spent: 50 to 70 Minutes Medications reviewed and adjusted accordingly: Yes Anticipated discharge: Home Within: Other - Inpatient Certification Based on my medical assessment, after consideration of the patient's comorbidities, presenting symptoms, or acuity I expect that the services needed warrant INPATIENT care.: Yes I certify that my determination is in accordance with my understanding of Medicare's requirements for reasonable and necessary INPATIENT services [42 CFR 412.3e].: Yes Medical Necessity: Need Close Monitoring Due to Risk of Patient Decompensation, Need For IV Fluids, Need For Continuous Telemetry Monitoring, Need for IV Antibiotics, Risk of Complication if Not Cared For in Hospital Post Hospital Care: D/C Edi Analyst Documentation - Plan Summary Plan Summary: See admitting attending orders.
[2017-05-17] MEDS: POTASSI CL 20 MEQ/50 ML RIDER 20 MEQ/50 ML RTUPB IV SCH (21:04)
[2017-05-18] MEDS: POTASSI CL 20 MEQ/50 ML RIDER 20 MEQ/50 ML RTUPB IV SCH (00:15)
[2017-05-18] MEDS: HYDROCODONE/ACETAMINOPHEN 5-325 MG TABLET PO PRN ×5 (02:27→19:38)
[2017-05-18] MEDS: LEVOTHYROXINE SODIUM 0.112 MG TABLET PO SCH (06:09)
[2017-05-18 06:30] LABS: ABSOLUTE LYMPHOCYTES (AUTO) 1.3 10^3/uL (0.5-4.7); ABSOLUTE MONOCYTES (AUTO) 1.4 10^3/uL (0.1-1.4); ABSOLUTE NEUT (AUTO) 9.3 10^3/uL (1.7-8.2); BASOPHILS % (AUTO) 0.2 % (0-2); EOSINOPHILS % (AUTO) 0.1 % (0-6); HEMATOCRIT 39.3 % (36.0-47.0); HEMOGLOBIN 13.3 g/dL (12.0-15.5); LYMPHOCYTES % (AUTO) 11.1 % (13-45); MEAN CORPUSCULAR HEMOGLOBIN 28.4 pg (27.0-33.4); MEAN CORPUSCULAR HGB CONC 33.7 g/dL (32.0-36.0); MEAN CORPUSCULAR VOLUME 84 fl (80-97); MONOCYTES % (AUTO) 11.8 % (3-13); PLATELET COUNT 133 10^3/uL (150-450); RED BLOOD COUNT 4.66 10^6/uL (3.72-5.28); RED CELL DISTRIBUTION WIDTH 13.7 % (11.5-14.0); SEGMENTED NEUTROPHILS % (AUTO) 76.8 % (42-78); TOTAL CELLS COUNTED % (AUTO) 100 %; WHITE BLOOD COUNT 12.1 10^3/uL (4.0-10.5)
[2017-05-18 06:41] LABS: ALANINE AMINOTRANSFERASE 44 U/L (9-52); ALBUMIN 2.7 g/dL (3.5-5.0); ALKALINE PHOSPHATASE 51 U/L (38-126); ANION GAP 8 (5-19); ASPARTATE AMINO TRANSFERASE 44 U/L (14-36); BILIRUBIN,DIRECT 0.2 mg/dL (0.0-0.4); BILIRUBIN,TOTAL 0.3 mg/dL (0.2-1.3); BLOOD UREA NITROGEN 21 mg/dL (7-20); CALCIUM 8.9 mg/dL (8.4-10.2); CARBON DIOXIDE 23 mmol/L (22-30); CHLORIDE 109 mmol/L (98-107); GLUCOSE 132 mg/dL (75-110); POTASSIUM 4.4 mmol/L (3.6-5.0); SODIUM 140.1 mmol/L (137-145); TOTAL PROTEIN 5.1 g/dL (6.3-8.2)
[2017-05-18] MEDS: NORMAL SALINE 1000 ML 1,000 ML IV PRN ×2 (07:40→19:38)
--- NOTE | 2017-05-18 07:48 | PDOC PROGRESS REPORT ---
Subjective Progress Note for:: 05/18/17 Subjective:: Patient continue to complain about neck and hip joint pain. Prescribed norco is not lasting 6 hours effect. No nausea or vomiting. No fever or chills. No chest pain or difficulty with breathing. Reason For Visit: PYELONEPHRITIS,AMS Physical Exam Vital Signs: Temp Pulse Resp BP Pulse Ox 98.1 F 69 17 123/60 95 05/18/17 03:22 05/18/17 03:22 05/18/17 03:22 05/18/17 03:22 05/18/17 03:22 Intake & Output 05/17/17 05/18/17 05/19/17 06:59 06:59 06:59 Intake Total 630 2679 Output Total 300 Balance 630 2379 Weight 84.1 kg 84.2 kg General appearance: PRESENT: no acute distress Head exam: PRESENT: atraumatic, normocephalic Eye exam: PRESENT: conjunctiva pink, EOMI, PERRLA. ABSENT: scleral icterus Mouth exam: PRESENT: moist Respiratory exam: PRESENT: clear to auscultation rafat Cardiovascular exam: PRESENT: RRR. ABSENT: diastolic murmur, rubs, systolic murmur GI/Abdominal exam: PRESENT: normal bowel sounds, soft. ABSENT: distended, guarding, mass, organolmegaly, rebound, tenderness Extremities exam: PRESENT: tenderness - multiple joints. ABSENT: pedal edema Musculoskeletal exam: PRESENT: tenderness - multiple joints tenderness Neurological exam: PRESENT: alert, awake, oriented to person, oriented to place , oriented to time, oriented to situation, CN II-XII grossly intact. ABSENT: motor sensory deficit Psychiatric exam: PRESENT: appropriate affect, normal mood. ABSENT: homicidal ideation, suicidal ideation Skin exam: PRESENT: dry, intact, warm. ABSENT: cyanosis, rash Results Laboratory Results: 05/18/17 05:42 05/18/17 05:42 05/17/17 05/17/17 05/17/17 07:37 07:37 07:37 WBC 14.7 H RBC 4.97 Hgb 14.3 Hct 41.7 MCV 84 MCH 28.8 MCHC 34.4 RDW 13.4 Plt Count 134 L Seg Neutrophils % Not Reportable Lymphocytes % Not Reportable Monocytes % Not Reportable Eosinophils % Not Reportable Basophils % Not Reportable Absolute Neutrophils Not Reportable Absolute Lymphocytes Not Reportable Absolute Monocytes Not Reportable Absolute Eosinophils Not Reportable Absolute Basophils Not Reportable Sodium 139.4 Potassium 3.5 L Chloride 106 Carbon Dioxide 23 Anion Gap 10 BUN 26 H Creatinine 0.93 Est GFR ( Amer) > 60 Est GFR (Non-Af Amer) 59 L Glucose 155 H Calcium 9.0 Magnesium 2.1 Total Bilirubin AST ALT Alkaline Phosphatase Total Protein Albumin 05/18/17 05/18/17 05:42 05:42 WBC 12.1 H RBC 4.66 Hgb 13.3 Hct 39.3 MCV 84 MCH 28.4 MCHC 33.7 RDW 13.7 Plt Count 133 L Seg Neutrophils % 76.8 Lymphocytes % 11.1 L Monocytes % 11.8 Eosinophils % 0.1 Basophils % 0.2 Absolute Neutrophils 9.3 H Absolute Lymphocytes 1.3 Absolute Monocytes 1.4 Absolute Eosinophils 0.0 Absolute Basophils 0.0 Sodium 140.1 Potassium 4.4 Chloride 109 H Carbon Dioxide 23 Anion Gap 8 BUN 21 H Creatinine 0.66 Est GFR ( Amer) > 60 Est GFR (Non-Af Amer) > 60 Glucose 132 H Calcium 8.9 Magnesium Total Bilirubin 0.3 AST 44 H ALT 44 Alkaline Phosphatase 51 Total Protein 5.1 L Albumin 2.7 L Impressions: Chest X-Ray 05/16/17 18:49 IMPRESSION: BORDERLINE CARDIOMEGALY WITH MILD VASCULAR CONGESTION. Head CT 05/16/17 18:49 IMPRESSION: NORMAL BRAIN CT WITHOUT CONTRAST. EVIDENCE OF ACUTE STROKE: NO. Assessment & Plan - Diagnosis (1) Acute pyelonephritis Is this a current diagnosis for this admission?: Yes (2) Acute kidney injury Is this a current diagnosis for this admission?: Yes (3) Toxic metabolic encephalopathy Is this a current diagnosis for this admission?: Yes (4) HTN (hypertension) Qualifiers: Hypertension type: essential hypertension Qualified Code(s): I10 - Essential (primary) hypertension Is this a current diagnosis for this admission?: Yes (5) Diabetes mellitus type 2 in obese Is this a current diagnosis for this admission?: Yes (6) Hypothyroidism Qualifiers: Hypothyroidism type: unspecified Qualified Code(s): E03.9 - Hypothyroidism , unspecified Is this a current diagnosis for this admission?: Yes (7) Osteoarthritis involving multiple joints on both sides of body Is this a current diagnosis for this admission?: Yes - Time Time Spent with patient: 25-34 minutes Medications reviewed and adjusted accordingly: Yes Anticipated discharge: Home Within: Other - Inpatient Certification Based on my medical assessment, after consideration of the patient's comorbidities, presenting symptoms, or acuity I expect that the services needed warrant INPATIENT care.: Yes I certify that my determination is in accordance with my understanding of Medicare's requirements for reasonable and necessary INPATIENT services [42 CFR 412.3e].: Yes Medical Necessity: Need Close Monitoring Due to Risk of Patient Decompensation, Need For IV Fluids, Need for IV Antibiotics, Risk of Complication if Not Cared For in Hospital Post Hospital Care: D/C Weighing Station Operator Documentation - Plan Summary Plan Summary: Continue on current IV antibiotic coverage. Change Kersey schedule to q4hrs. Start on Tizanidine therapy as per her reported commencement of treatment by neurosurgeon prior to her admission and was helping her pain management.Dr Zepeda will cover my service till 05/28/17.
[2017-05-18] MEDS: CEFTRIAXONE 1 GM/D5W RTU 1 GM/50 ML RTUPB IV SCH (09:09)
[2017-05-18] MEDS ORDERED: VALSARTAN 160 MG TABLET PO SCH (10:00)
[2017-05-18] MEDS ORDERED: HCTHIAZID PO SCH (10:00)
[2017-05-18] MEDS ORDERED: AMLODIPINE BESYLATE 10 MG TABLET PO SCH (10:00)
[2017-05-18] MEDS ORDERED: VALSARTAN PO SCH (10:00)
[2017-05-18] MEDS ORDERED: [UNRECOGNIZED DRUG - OTHER] PO SCH (10:00)
[2017-05-18] MEDS ORDERED: HYDROCHLOROTHIAZIDE 25 MG TABLET PO SCH (10:00)
[2017-05-18] MEDS ORDERED: AMLODIPINE PO SCH (10:00)
[2017-05-18] MEDS ORDERED: ONDANSETRON 4 MG TAB.RAPDIS PO PRN (10:00)
[2017-05-18] MEDS: TIZANIDINE HCL 4 MG TABLET PO PRN (21:39)
[2017-05-19] MEDS: HYDROCODONE/ACETAMINOPHEN 5-325 MG TABLET PO PRN ×5 (00:19→19:45)
[2017-05-19] MEDS: NORMAL SALINE 1000 ML 1,000 ML IV PRN ×2 (06:28→17:33)
[2017-05-19] MEDS: LEVOTHYROXINE SODIUM 0.112 MG TABLET PO SCH (06:28)
[2017-05-19] MEDS: TIZANIDINE HCL 4 MG TABLET PO PRN (06:28)
[2017-05-19] MEDS: CEFTRIAXONE 1 GM/D5W RTU 1 GM/50 ML RTUPB IV SCH (10:51)
[2017-05-19] MEDS: ACETAMINOPHEN 325 MG TABLET PO PRN ×2 (13:34→22:20)
--- NOTE | 2017-05-19 22:23 | PDOC PROGRESS REPORT ---
Subjective Progress Note for:: 05/19/17 Subjective:: Patient is seen by the bedside, complaining of pain Reason For Visit: PYELONEPHRITIS,AMS Physical Exam Vital Signs: Temp Pulse Resp BP Pulse Ox 97.4 F 67 18 158/53 H 99 05/19/17 16:00 05/19/17 19:00 05/19/17 16:00 05/19/17 16:00 05/19/17 16:00 Intake & Output 05/18/17 05/19/17 05/20/17 06:59 06:59 06:59 Intake Total 2679 3085 1555 Output Total 300 1300 600 Balance 2379 1785 955 Weight 84.2 kg General appearance: PRESENT: mild distress Eye exam: PRESENT: PERRLA Respiratory exam: PRESENT: clear to auscultation rafat Cardiovascular exam: PRESENT: +S1, +S2 GI/Abdominal exam: PRESENT: soft Neurological exam: PRESENT: alert Results Laboratory Results: 05/18/17 05:42 05/18/17 05:42 Impressions: Chest X-Ray 05/16/17 18:49 IMPRESSION: BORDERLINE CARDIOMEGALY WITH MILD VASCULAR CONGESTION. Head CT 05/16/17 18:49 IMPRESSION: NORMAL BRAIN CT WITHOUT CONTRAST. EVIDENCE OF ACUTE STROKE: NO. Assessment & Plan - Diagnosis (1) Pyelonephritis Is this a current diagnosis for this admission?: Yes (2) Altered mental status Qualifiers: Altered mental status type: delirium Qualified Code(s): R41.0 - Disorientation, unspecified (3) Acute kidney injury Is this a current diagnosis for this admission?: Yes (4) Acute pyelonephritis Is this a current diagnosis for this admission?: Yes (5) Toxic metabolic encephalopathy Is this a current diagnosis for this admission?: Yes (6) HTN (hypertension) Qualifiers: Hypertension type: essential hypertension Qualified Code(s): I10 - Essential (primary) hypertension Is this a current diagnosis for this admission?: Yes (7) Diabetes mellitus type 2 in obese Is this a current diagnosis for this admission?: Yes (8) Hypothyroidism Qualifiers: Hypothyroidism type: unspecified Qualified Code(s): E03.9 - Hypothyroidism , unspecified Is this a current diagnosis for this admission?: Yes - Plan Summary Plan Summary: Continue treatment
[2017-05-20] MEDS: HYDROCODONE/ACETAMINOPHEN 5-325 MG TABLET PO PRN ×5 (01:05→20:18)
[2017-05-20] MEDS: LEVOTHYROXINE SODIUM 0.112 MG TABLET PO SCH (05:41)
[2017-05-20] MEDS: ACETAMINOPHEN 325 MG TABLET PO PRN ×3 (09:46→22:43)
[2017-05-20] MEDS: CEFTRIAXONE 1 GM/D5W RTU 1 GM/50 ML RTUPB IV SCH (09:46)
[2017-05-20 20:28] LABS: UR PRO/CREAT RATIO RESULT 0.4 mg/mg (0.0-0.2); URINE CREATININE 55.8 mg/dL (15-278); URINE PROTEIN 23.3 mg/dL (<12)
--- NOTE | 2017-05-20 20:51 | PDOC PROGRESS REPORT ---
Subjective Progress Note for:: 05/20/17 Subjective:: Patient is seen by the bedside, complaining of pain Reason For Visit: PYELONEPHRITIS,AMS Physical Exam Vital Signs: Temp Pulse Resp BP Pulse Ox 98.3 F 72 21 H 172/65 H 93 05/20/17 19:48 05/20/17 19:48 05/20/17 19:48 05/20/17 19:48 05/20/17 19:48 Intake & Output 05/19/17 05/20/17 05/21/17 06:59 06:59 06:59 Intake Total 3085 3055 1880 Output Total 1300 1400 1500 Balance 1785 1655 380 General appearance: PRESENT: no acute distress, well-developed, well-nourished Head exam: PRESENT: atraumatic, normocephalic Eye exam: PRESENT: conjunctiva pink, EOMI, PERRLA. ABSENT: scleral icterus Ear exam: PRESENT: normal external ear exam Mouth exam: PRESENT: moist, tongue midline Neck exam: PRESENT: full ROM. ABSENT: carotid bruit, JVD, lymphadenopathy, thyromegaly Cardiovascular exam: PRESENT: RRR. ABSENT: diastolic murmur, rubs, systolic murmur Pulses: PRESENT: normal dorsalis pedis pul, +2 pedal pulses bilateral Vascular exam: PRESENT: normal capillary refill GI/Abdominal exam: PRESENT: normal bowel sounds, soft. ABSENT: distended, guarding, mass, organolmegaly, rebound, tenderness Rectal exam: PRESENT: deferred Neurological exam: PRESENT: alert, awake, oriented to person, oriented to place , oriented to time, oriented to situation, CN II-XII grossly intact. ABSENT: motor sensory deficit Psychiatric exam: PRESENT: appropriate affect, normal mood. ABSENT: homicidal ideation, suicidal ideation Skin exam: PRESENT: dry, intact, warm. ABSENT: cyanosis, rash Results Laboratory Results: 05/18/17 05:42 05/18/17 05:42 Impressions: Chest X-Ray 05/16/17 18:49 IMPRESSION: BORDERLINE CARDIOMEGALY WITH MILD VASCULAR CONGESTION. Head CT 05/16/17 18:49 IMPRESSION: NORMAL BRAIN CT WITHOUT CONTRAST. EVIDENCE OF ACUTE STROKE: NO. Assessment & Plan - Diagnosis (1) Pyelonephritis Is this a current diagnosis for this admission?: Yes (2) Altered mental status Qualifiers: Altered mental status type: delirium Qualified Code(s): R41.0 - Disorientation, unspecified (3) Acute kidney injury Is this a current diagnosis for this admission?: Yes (4) Acute pyelonephritis Is this a current diagnosis for this admission?: Yes (5) Toxic metabolic encephalopathy Is this a current diagnosis for this admission?: Yes (6) HTN (hypertension) Qualifiers: Hypertension type: essential hypertension Qualified Code(s): I10 - Essential (primary) hypertension Is this a current diagnosis for this admission?: Yes (7) Diabetes mellitus type 2 in obese Is this a current diagnosis for this admission?: Yes (8) Hypothyroidism Qualifiers: Hypothyroidism type: unspecified Qualified Code(s): E03.9 - Hypothyroidism , unspecified Is this a current diagnosis for this admission?: Yes
[2017-05-21] MEDS: HYDROCODONE/ACETAMINOPHEN 5-325 MG TABLET PO PRN ×5 (04:15→21:14)
[2017-05-21] MEDS: LEVOTHYROXINE SODIUM 0.112 MG TABLET PO SCH (05:19)
[2017-05-21] MEDS: CEFTRIAXONE 1 GM/D5W RTU 1 GM/50 ML RTUPB IV SCH (09:23)
[2017-05-21] MEDS: NORMAL SALINE 1000 ML 1,000 ML IV PRN ×2 (09:24→21:16)
[2017-05-21 15:31] LABS: HEMATOCRIT 40.5 % (36.0-47.0); HEMOGLOBIN 13.8 g/dL (12.0-15.5); MEAN CORPUSCULAR HEMOGLOBIN 28.5 pg (27.0-33.4); MEAN CORPUSCULAR HGB CONC 34.1 g/dL (32.0-36.0); MEAN CORPUSCULAR VOLUME 84 fl (80-97); PLATELET COUNT 287 10^3/uL (150-450); RED BLOOD COUNT 4.84 10^6/uL (3.72-5.28); RED CELL DISTRIBUTION WIDTH 13.7 % (11.5-14.0); WHITE BLOOD COUNT 13.8 10^3/uL (4.0-10.5)
[2017-05-21 15:46] LABS: ALANINE AMINOTRANSFERASE 43 U/L (9-52); ALBUMIN 2.7 g/dL (3.5-5.0); ALKALINE PHOSPHATASE 75 U/L (38-126); ANION GAP 9 (5-19); ASPARTATE AMINO TRANSFERASE 30 U/L (14-36); BILIRUBIN,DIRECT 0.1 mg/dL (0.0-0.4); BILIRUBIN,TOTAL 0.2 mg/dL (0.2-1.3); BLOOD UREA NITROGEN 7 mg/dL (7-20); CALCIUM 8.9 mg/dL (8.4-10.2); CARBON DIOXIDE 30 mmol/L (22-30); CHLORIDE 100 mmol/L (98-107); GLUCOSE 162 mg/dL (75-110); POTASSIUM 3.3 mmol/L (3.6-5.0); SODIUM 138.9 mmol/L (137-145); TOTAL PROTEIN 5.4 g/dL (6.3-8.2)
[2017-05-21 15:53] LABS: ABSOLUTE LYMPHOCYTES# (MANUAL) 2.9 10^3/uL (0.5-4.7); ABSOLUTE MONOCYTES # (MANUAL) 1.5 10^3/uL (0.1-1.4); ABSOLUTE NEUTROPHILS# (MANUAL) 9.4 10^3/uL (1.7-8.2); BAND NEUTROPHILS % (MANUAL) 1 % (3-5); BASOPHILS % (MANUAL) 0 % (0-2); EOSINOPHILS % (MANUAL) 0 % (0-6); LYMPHOCYTES % (MANUAL) 21 % (13-45); METAMYELOCYTES % (MANUAL) 3 % (0); MONOCYTES % (MANUAL) 11 % (3-13); SEGMENTED NEUTROPHILS % (MAN) 64 % (42-78); TOTAL CELLS COUNTED 100
[2017-05-21 15:54] LABS: HYPOCHROMASIA SLIGHT; PLATELET COMMENT ADEQUATE
[2017-05-21] MEDS: TIZANIDINE HCL 4 MG TABLET PO PRN (18:12)
--- NOTE | 2017-05-21 19:02 | PDOC PROGRESS REPORT ---
Subjective Progress Note for:: 05/21/17 Subjective:: Patient was seen by the bedside she is alert oriented still complaining of pain in her back, she was admitted for the management of acute pyonephritis associated with metabolic encephalopathy Reason For Visit: PYELONEPHRITIS,AMS Physical Exam Vital Signs: Temp Pulse Resp BP Pulse Ox 97.8 F 63 16 169/52 H 93 05/21/17 15:44 05/21/17 15:44 05/21/17 15:44 05/21/17 15:44 05/21/17 15:44 Intake & Output 05/20/17 05/21/17 05/22/17 06:59 06:59 06:59 Intake Total 3055 4280 2100 Output Total 1400 3400 Balance 5614 095 7082 Weight 84.2 kg General appearance: PRESENT: no acute distress Eye exam: PRESENT: PERRLA Respiratory exam: PRESENT: clear to auscultation rafat Cardiovascular exam: PRESENT: +S1, +S2 GI/Abdominal exam: PRESENT: soft Neurological exam: PRESENT: alert Results Laboratory Results: 05/21/17 15:01 05/21/17 15:01 05/21/17 05/21/17 15:01 15:01 WBC 13.8 H RBC 4.84 Hgb 13.8 Hct 40.5 MCV 84 MCH 28.5 MCHC 34.1 RDW 13.7 Plt Count 287 Seg Neutrophils % Not Reportable Lymphocytes % Not Reportable Monocytes % Not Reportable Eosinophils % Not Reportable Basophils % Not Reportable Absolute Neutrophils Not Reportable Absolute Lymphocytes Not Reportable Absolute Monocytes Not Reportable Absolute Eosinophils Not Reportable Absolute Basophils Not Reportable Sodium 138.9 Potassium 3.3 L Chloride 100 Carbon Dioxide 30 Anion Gap 9 BUN 7 Creatinine 0.49 L Est GFR ( Amer) > 60 Est GFR (Non-Af Amer) > 60 Glucose 162 H Calcium 8.9 Total Bilirubin 0.2 AST 30 ALT 43 Alkaline Phosphatase 75 Total Protein 5.4 L Albumin 2.7 L Impressions: Chest X-Ray 05/16/17 18:49 IMPRESSION: BORDERLINE CARDIOMEGALY WITH MILD VASCULAR CONGESTION. Head CT 05/16/17 18:49 IMPRESSION: NORMAL BRAIN CT WITHOUT CONTRAST. EVIDENCE OF ACUTE STROKE: NO. Assessment & Plan - Diagnosis (1) Pyelonephritis Is this a current diagnosis for this admission?: Yes (2) Altered mental status Qualifiers: Altered mental status type: delirium Qualified Code(s): R41.0 - Disorientation, unspecified (3) Acute kidney injury Is this a current diagnosis for this admission?: Yes (4) Acute pyelonephritis Is this a current diagnosis for this admission?: Yes (5) Toxic metabolic encephalopathy Is this a current diagnosis for this admission?: Yes (6) HTN (hypertension) Qualifiers: Hypertension type: essential hypertension Qualified Code(s): I10 - Essential (primary) hypertension Is this a current diagnosis for this admission?: Yes (7) Diabetes mellitus type 2 in obese Is this a current diagnosis for this admission?: Yes (8) Hypothyroidism Qualifiers: Hypothyroidism type: unspecified Qualified Code(s): E03.9 - Hypothyroidism , unspecified Is this a current diagnosis for this admission?: Yes - Plan Summary Plan Summary: The serum potassium is low this be corrected
[2017-05-21] MEDS ORDERED: POTASSIUM CHLORIDE 20 MEQ/15 ML UDCUP PO ONE (20:00)
[2017-05-22] MEDS: HYDROCODONE/ACETAMINOPHEN 5-325 MG TABLET PO PRN ×4 (02:28→18:30)
[2017-05-22] MEDS: TIZANIDINE HCL 4 MG TABLET PO PRN (05:16)
[2017-05-22] MEDS: LEVOTHYROXINE SODIUM 0.112 MG TABLET PO SCH (05:16)
[2017-05-22] MEDS: ACETAMINOPHEN 325 MG TABLET PO PRN (05:39)
[2017-05-22] MEDS: NORMAL SALINE 1000 ML 1,000 ML IV PRN ×2 (06:41→18:29)
[2017-05-22] MEDS: CEFTRIAXONE 1 GM/D5W RTU 1 GM/50 ML RTUPB IV SCH (09:40)
--- NOTE | 2017-05-22 14:58 | PDOC PROGRESS REPORT ---
Subjective Progress Note for:: 05/22/17 Subjective:: She complained of neck pain with radiculopathy Reason For Visit: PYELONEPHRITIS,AMS Physical Exam Vital Signs: Temp Pulse Resp BP Pulse Ox 97.4 F 62 16 164/66 H 93 05/22/17 07:45 05/22/17 07:45 05/22/17 07:45 05/22/17 07:45 05/22/17 07:45 Intake & Output 05/21/17 05/22/17 05/23/17 06:59 06:59 06:59 Intake Total 4280 3400 Output Total 3400 2000 Balance 880 1400 Weight 84.2 kg 84.8 kg General appearance: PRESENT: no acute distress Eye exam: PRESENT: PERRLA Neck exam: PRESENT: tenderness Respiratory exam: PRESENT: clear to auscultation rafat Cardiovascular exam: PRESENT: +S1, +S2 GI/Abdominal exam: PRESENT: soft Neurological exam: PRESENT: alert, CN II-XII grossly intact Results Laboratory Results: 05/21/17 15:01 05/21/17 15:01 05/21/17 05/21/17 15:01 15:01 WBC 13.8 H RBC 4.84 Hgb 13.8 Hct 40.5 MCV 84 MCH 28.5 MCHC 34.1 RDW 13.7 Plt Count 287 Seg Neutrophils % Not Reportable Lymphocytes % Not Reportable Monocytes % Not Reportable Eosinophils % Not Reportable Basophils % Not Reportable Absolute Neutrophils Not Reportable Absolute Lymphocytes Not Reportable Absolute Monocytes Not Reportable Absolute Eosinophils Not Reportable Absolute Basophils Not Reportable Sodium 138.9 Potassium 3.3 L Chloride 100 Carbon Dioxide 30 Anion Gap 9 BUN 7 Creatinine 0.49 L Est GFR ( Amer) > 60 Est GFR (Non-Af Amer) > 60 Glucose 162 H Calcium 8.9 Total Bilirubin 0.2 AST 30 ALT 43 Alkaline Phosphatase 75 Total Protein 5.4 L Albumin 2.7 L Impressions: Chest X-Ray 05/16/17 18:49 IMPRESSION: BORDERLINE CARDIOMEGALY WITH MILD VASCULAR CONGESTION. Head CT 05/16/17 18:49 IMPRESSION: NORMAL BRAIN CT WITHOUT CONTRAST. EVIDENCE OF ACUTE STROKE: NO. Assessment & Plan - Diagnosis (1) Pyelonephritis Is this a current diagnosis for this admission?: Yes (2) Altered mental status Qualifiers: Altered mental status type: delirium Qualified Code(s): R41.0 - Disorientation, unspecified (3) Acute kidney injury Is this a current diagnosis for this admission?: Yes (4) Acute pyelonephritis Is this a current diagnosis for this admission?: Yes (5) Toxic metabolic encephalopathy Is this a current diagnosis for this admission?: Yes (6) HTN (hypertension) Qualifiers: Hypertension type: essential hypertension Qualified Code(s): I10 - Essential (primary) hypertension Is this a current diagnosis for this admission?: Yes (7) Diabetes mellitus type 2 in obese Is this a current diagnosis for this admission?: Yes (8) Hypothyroidism Qualifiers: Hypothyroidism type: unspecified Qualified Code(s): E03.9 - Hypothyroidism , unspecified Is this a current diagnosis for this admission?: Yes (9) Cervical radiculopathy Is this a current diagnosis for this admission?: Yes Plan: MRI of the cervical spine ordered
[2017-05-22 15:41] LABS: HEMATOCRIT 40.9 % (36.0-47.0); HEMOGLOBIN 13.6 g/dL (12.0-15.5); MEAN CORPUSCULAR HGB CONC 33.2 g/dL (32.0-36.0); MEAN CORPUSCULAR VOLUME 84 fl (80-97); PLATELET COUNT 355 10^3/uL (150-450); RED BLOOD COUNT 4.85 10^6/uL (3.72-5.28); RED CELL DISTRIBUTION WIDTH 13.6 % (11.5-14.0); WHITE BLOOD COUNT 14.4 10^3/uL (4.0-10.5)
[2017-05-22 15:59] LABS: ALANINE AMINOTRANSFERASE 47 U/L (9-52); ALBUMIN 2.8 g/dL (3.5-5.0); ALKALINE PHOSPHATASE 84 U/L (38-126); ANION GAP 10 (5-19); ASPARTATE AMINO TRANSFERASE 37 U/L (14-36); BILIRUBIN,DIRECT 0.2 mg/dL (0.0-0.4); BILIRUBIN,TOTAL 0.2 mg/dL (0.2-1.3); BLOOD UREA NITROGEN 8 mg/dL (7-20); CARBON DIOXIDE 29 mmol/L (22-30); CHLORIDE 104 mmol/L (98-107); GLUCOSE 165 mg/dL (75-110); POTASSIUM 3.6 mmol/L (3.6-5.0); SODIUM 143.3 mmol/L (137-145); TOTAL PROTEIN 5.5 g/dL (6.3-8.2)
[2017-05-22 16:05] LABS: ABSOLUTE LYMPHOCYTES# (MANUAL) 3.2 10^3/uL (0.5-4.7); ABSOLUTE MONOCYTES # (MANUAL) 0.9 10^3/uL (0.1-1.4); ABSOLUTE NEUTROPHILS# (MANUAL) 10.2 10^3/uL (1.7-8.2); BAND NEUTROPHILS % (MANUAL) 4 % (3-5); BASOPHILS % (MANUAL) 0 % (0-2); EOSINOPHILS % (MANUAL) 1 % (0-6); LYMPHOCYTES % (MANUAL) 21 % (13-45); MONOCYTES % (MANUAL) 6 % (3-13); SEGMENTED NEUTROPHILS % (MAN) 67 % (42-78); TOTAL CELLS COUNTED 100
[2017-05-22 16:06] LABS: PLATELET COMMENT ADEQUATE; RBC MORPHOLOGY COMMENT NORMO-CYTIC/CHROMIC
--- NOTE | 2017-05-22 17:06 | RADIOLOGY REPORT (SQ) ---
EXAM DESCRIPTION: MRI CERVICAL SPINE WITHOUT COMPLETED DATE/TIME: 05/22/2017 4:49 pm REASON FOR STUDY: cervical radiculopathy COMPARISON: 05/14/2017. TECHNIQUE: Sagittal and Axial imaging includes T1, T2, STIR and gradient echo sequences. LIMITATIONS: Motion artifact. FINDINGS: ALIGNMENT: Normal. VERTEBRAE: Intact. BONE MARROW: Increasing marrow edema/ inflammation in the C3 and C4 vertebral bodies with decreased s ignal on T1 and increased signal on T2 and STIR images. DISCS: Increasing signal in the C3-C4 disc. HARDWARE: None in the spine. CORD AND BASE OF BRAIN: Normal in size and signal intensity. SOFT TISSUES: Increasing prevertebral soft tissue swelling in the upper cervical region from C2-C5. C1-C2: No significant spinal stenosis. C2-C3: No significant spinal stenosis or exit foraminal stenosis. C3-C4: Limited evaluation due to motion artifact. There does appear to be left paracentral disc and osteophyte with central canal stenosis. Moderate exit foraminal stenosis. C4-C5: Posterior disc and osteophyte, asymmetric to the left, with mild spinal stenosis and exit fora maye stenosis. C5-C6: Mild posterior disc and osteophyte, asymmetric to the left. Mild spinal stenosis and mild to moderate exit foraminal stenosis. C6-C7: Left side disc and osteophyte and uncovertebral spurring with left exit foraminal stenosis. N o significant spinal stenosis. C7-T1: No significant spinal stenosis or exit foraminal stenosis. UPPER THORACIC: Incompletely imaged. No significant spinal stenosis or exit foraminal stenosis. OTHER: No other significant finding. IMPRESSION: STUDY LIMITED BY MOTION ARTIFACT. THERE IS MULTILEVEL CHRONIC DEGENERATIVE CHANGE. THE RE IS INCREASING MARROW EDEMA/ INFLAMMATION IN THE C3 AND C4 VERTEBRAL BODIES WELL INCREASING S IGNAL IN THE C3-C4 DISC. THERE IS ALSO INCREASING PREVERTEBRAL SOFT TISSUE SWELLING. THESE FINDINGS ARE CONCERNING FOR DISCITIS AND OSTEOMYELITIS. FURTHER EVALUATION WITH POSTCONTRAST MR IMAGES OF TH E UPPER CERVICAL SPINE MAY BE CONSIDERED. TECHNICAL DOCUMENTATION: JOB ID: [id number]- All Rights Reserved
--- NOTE | 2017-05-22 18:41 | RADIOLOGY REPORT (SQ) ---
EXAM DESCRIPTION: MRI CERVICAL SPINE COMBO COMPLETED DATE/TIME: 05/22/2017 6:18 pm REASON FOR STUDY: ABNORMAL MRI C-SPINE,WITHOUT CONTRAST COMPARISON: Noncontrast study dated 05/22/2017. TECHNIQUE: Limited imaging follow-up to previous noncontrast study. Axial T1 images obtained withou t contrast and sagittal and axial T1 weighted images obtained following contrast. CONTRAST TYPE AND DOSE: 15 mL Multihance. RENAL FUNCTION: GFR > 60. LIMITATIONS: None. FINDINGS: There is abnormal contrast enhancement in the marrow of the C2 and C3 vertebral bodies. T here is also abnormal enhancement in the prevertebral soft tissues extending from C1 to C4 and abnorm al contrast enhancement in the epidural soft tissues posterior to the cervical vertebrae at these lev els. IMPRESSION: ABNORMAL CONTRAST ENHANCEMENT IN THE MARROW OF THE C2 AND C3 VERTEBRAL BODIES WELL ABNORMAL SOFT TISSUE THICKENING AND ENHANCEMENT IN THE PREVERTEBRAL SOFT TISSUES AND IN THE EPIDURAL SOFT TISSUES DESCRIBED. FINDINGS ARE MOST LIKELY DUE TO INFECTION, DISCITIS WITH OSTEOMYELITIS O F THE C3 AND C4 VERTEBRAL BODIES AND ASSOCIATED INFECTIOUS PROCESS IN THE SOFT TISSUES INCLUDING THE EPIDURAL SOFT TISSUES. NO DISCRETE FORMED ABSCESS IS VISUALIZED AT THIS TIME. COMMENT: None. TECHNICAL DOCUMENTATION: JOB ID: [id number] [employer]- All Rights Reserved
[2017-05-22] MEDS ORDERED: VANCOMYCIN HCL 0 MG in DEXTROSE 5%-WATER 250 ML IV NR (19:00)
[2017-05-22] MEDS ORDERED: VANCOMYCIN HCL INJ 1000 MG VIAL IV PRN (20:14)
[2017-05-22] MEDS ORDERED: VANCOMYCIN HCL 1,500 MG in DEXTROSE 5%-WATER 250 ML IV ONE (20:15)
[2017-05-22] MEDS ORDERED: VANCOMYCIN HCL INJ 500 MG VIAL ONE (20:51)
[2017-05-22] MEDS ORDERED: VANCOMYCIN HCL INJ 1000 MG VIAL ONE (20:51)
[2017-05-23] MEDS: HYDROCODONE/ACETAMINOPHEN 5-325 MG TABLET PO PRN ×4 (00:59→18:45)
[2017-05-23] MEDS: LEVOTHYROXINE SODIUM 0.112 MG TABLET PO SCH (06:37)
[2017-05-23] MEDS: CEFTRIAXONE 1 GM/D5W RTU 1 GM/50 ML RTUPB IV SCH (09:25)
[2017-05-23] MEDS ORDERED: VANCOMYCIN HCL 1,250 MG in DEXTROSE 5%-WATER 250 ML IV ONE (11:00)
[2017-05-23] MEDS ORDERED: BISACODYL 5 MG TABEC PO ONE (11:46)
--- NOTE | 2017-05-23 11:58 | PDOC PROGRESS REPORT ---
Subjective Progress Note for:: 05/23/17 Subjective:: She was seen at the bedside this morning, yesterday she complained of severe neck pain, she was very tender on mild palpation of the neck, MRI of the neck was done it showed abnormal contrast enhancement in the marrow of C2 and C3 vertebral bodies as well as abnormal soft tissue thickening and enhancement in the prevertebral soft tissues and in the epidural soft tissues thIS findings consistent with osteomyelitis of C3,C4 Reason For Visit: PYELONEPHRITIS,AMS Physical Exam Vital Signs: Temp Pulse Resp BP Pulse Ox 97.7 F 86 18 184/75 H 92 05/23/17 00:42 05/23/17 07:00 05/23/17 00:42 05/23/17 00:42 05/23/17 00:42 Intake & Output 05/22/17 05/23/17 05/24/17 06:59 06:59 06:59 Intake Total 3400 2715 Output Total 2000 Balance 1400 2715 Weight 84.8 kg General appearance: PRESENT: no acute distress Eye exam: PRESENT: PERRLA Neck exam: PRESENT: tenderness Respiratory exam: PRESENT: clear to auscultation rafat Cardiovascular exam: PRESENT: +S1, +S2 GI/Abdominal exam: PRESENT: soft Neurological exam: PRESENT: alert, CN II-XII grossly intact Results Laboratory Results: 05/22/17 15:25 05/22/17 15:25 05/22/17 05/22/17 15:25 15:25 WBC 14.4 H RBC 4.85 Hgb 13.6 Hct 40.9 MCV 84 MCH 28.0 MCHC 33.2 RDW 13.6 Plt Count 355 Seg Neutrophils % Not Reportable Lymphocytes % Not Reportable Monocytes % Not Reportable Eosinophils % Not Reportable Basophils % Not Reportable Absolute Neutrophils Not Reportable Absolute Lymphocytes Not Reportable Absolute Monocytes Not Reportable Absolute Eosinophils Not Reportable Absolute Basophils Not Reportable Sodium 143.3 Potassium 3.6 Chloride 104 Carbon Dioxide 29 Anion Gap 10 BUN 8 Creatinine 0.52 Est GFR ( Amer) > 60 Est GFR (Non-Af Amer) > 60 Glucose 165 H Calcium 9.0 Total Bilirubin 0.2 AST 37 H ALT 47 Alkaline Phosphatase 84 Total Protein 5.5 L Albumin 2.8 L Impressions: Chest X-Ray 05/16/17 18:49 IMPRESSION: BORDERLINE CARDIOMEGALY WITH MILD VASCULAR CONGESTION. Head CT 05/16/17 18:49 IMPRESSION: NORMAL BRAIN CT WITHOUT CONTRAST. EVIDENCE OF ACUTE STROKE: NO. Cervical Spine MRI 05/22/17 00:00 IMPRESSION: ABNORMAL CONTRAST ENHANCEMENT IN THE MARROW OF THE C2 AND C3 VERTEBRAL BODIES WELL ABNORMAL SOFT TISSUE THICKENING AND ENHANCEMENT IN THE PREVERTEBRAL SOFT TISSUES AND IN THE EPIDURAL SOFT TISSUES DESCRIBED. FINDINGS ARE MOST LIKELY DUE TO INFECTION, DISCITIS WITH OSTEOMYELITIS OF THE C3 AND C4 VERTEBRAL BODIES AND ASSOCIATED INFECTIOUS PROCESS IN THE SOFT TISSUES INCLUDING THE EPIDURAL SOFT TISSUES. NO DISCRETE FORMED ABSCESS IS VISUALIZED AT THIS TIME. Assessment & Plan - Diagnosis (1) Osteomyelitis of cervical spine Plan: CT-guided aspiration/biopsy of cervical spine ordered, she is started on IV vancomycin, will continue Rocephin, may need antibiotic for 4-6 weeks. PICC line ordered (2) Pyelonephritis Is this a current diagnosis for this admission?: Yes (3) Altered mental status Qualifiers: Altered mental status type: delirium Qualified Code(s): R41.0 - Disorientation, unspecified (4) Acute kidney injury Is this a current diagnosis for this admission?: Yes (5) Acute pyelonephritis Is this a current diagnosis for this admission?: Yes (6) Toxic metabolic encephalopathy Is this a current diagnosis for this admission?: Yes (7) HTN (hypertension) Qualifiers: Hypertension type: essential hypertension Qualified Code(s): I10 - Essential (primary) hypertension Is this a current diagnosis for this admission?: Yes (8) Diabetes mellitus type 2 in obese Is this a current diagnosis for this admission?: Yes (9) Hypothyroidism Qualifiers: Hypothyroidism type: unspecified Qualified Code(s): E03.9 - Hypothyroidism , unspecified Is this a current diagnosis for this admission?: Yes (10) Cervical radiculopathy Is this a current diagnosis for this admission?: Yes
[2017-05-23 11:59] LABS: HEMATOCRIT 41.4 % (36.0-47.0); HEMOGLOBIN 13.9 g/dL (12.0-15.5); MEAN CORPUSCULAR HGB CONC 33.5 g/dL (32.0-36.0); MEAN CORPUSCULAR VOLUME 84 fl (80-97); PLATELET COUNT 357 10^3/uL (150-450); RED BLOOD COUNT 4.96 10^6/uL (3.72-5.28); RED CELL DISTRIBUTION WIDTH 13.6 % (11.5-14.0); WHITE BLOOD COUNT 14.9 10^3/uL (4.0-10.5)
[2017-05-23 12:13] LABS: ALANINE AMINOTRANSFERASE 51 U/L (9-52); ALBUMIN 3.1 g/dL (3.5-5.0); ALKALINE PHOSPHATASE 77 U/L (38-126); ANION GAP 10 (5-19); ASPARTATE AMINO TRANSFERASE 37 U/L (14-36); BILIRUBIN,DIRECT 0.2 mg/dL (0.0-0.4); BILIRUBIN,TOTAL 0.3 mg/dL (0.2-1.3); BLOOD UREA NITROGEN 11 mg/dL (7-20); CALCIUM 9.6 mg/dL (8.4-10.2); CARBON DIOXIDE 29 mmol/L (22-30); CHLORIDE 103 mmol/L (98-107); GLUCOSE 130 mg/dL (75-110); SODIUM 142.1 mmol/L (137-145)
[2017-05-23 12:21] LABS: ABSOLUTE LYMPHOCYTES# (MANUAL) 3.4 10^3/uL (0.5-4.7); ABSOLUTE MONOCYTES # (MANUAL) 1.8 10^3/uL (0.1-1.4); ABSOLUTE NEUTROPHILS# (MANUAL) 9.5 10^3/uL (1.7-8.2); BAND NEUTROPHILS % (MANUAL) 1 % (3-5); BASOPHILS % (MANUAL) 0 % (0-2); EOSINOPHILS % (MANUAL) 1 % (0-6); LYMPHOCYTES % (MANUAL) 20 % (13-45); MONOCYTES % (MANUAL) 12 % (3-13); SEGMENTED NEUTROPHILS % (MAN) 63 % (42-78); TOTAL CELLS COUNTED 100
[2017-05-23 12:22] LABS: PLATELET COMMENT ADEQUATE; RBC MORPHOLOGY COMMENT NORMO-CYTIC/CHROMIC; TOXIC GRANULATION 1+; TOXIC VACUOLATION PRESENT
[2017-05-23] MEDS: VANCOMYCIN HCL 1,250 MG in DEXTROSE 5%-WATER 250 ML IV SCH (21:47)
[2017-05-24 04:23] LABS: HEMATOCRIT 42.8 % (36.0-47.0); HEMOGLOBIN 14.2 g/dL (12.0-15.5); MEAN CORPUSCULAR HEMOGLOBIN 27.9 pg (27.0-33.4); MEAN CORPUSCULAR HGB CONC 33.2 g/dL (32.0-36.0); MEAN CORPUSCULAR VOLUME 84 fl (80-97); RED CELL DISTRIBUTION WIDTH 13.9 % (11.5-14.0); WHITE BLOOD COUNT 15.1 10^3/uL (4.0-10.5)
[2017-05-24 04:53] LABS: ALANINE AMINOTRANSFERASE 51 U/L (9-52); ALBUMIN 3.3 g/dL (3.5-5.0); ALKALINE PHOSPHATASE 92 U/L (38-126); ANION GAP 11 (5-19); ASPARTATE AMINO TRANSFERASE 36 U/L (14-36); BILIRUBIN,DIRECT 0.2 mg/dL (0.0-0.4); BILIRUBIN,TOTAL 0.3 mg/dL (0.2-1.3); BLOOD UREA NITROGEN 11 mg/dL (7-20); CALCIUM 9.7 mg/dL (8.4-10.2); CARBON DIOXIDE 29 mmol/L (22-30); CHLORIDE 102 mmol/L (98-107); GLUCOSE 139 mg/dL (75-110); POTASSIUM 3.9 mmol/L (3.6-5.0); SODIUM 141.7 mmol/L (137-145); TOTAL PROTEIN 6.3 g/dL (6.3-8.2)
[2017-05-24 05:11] LABS: ABSOLUTE LYMPHOCYTES# (MANUAL) 3.8 10^3/uL (0.5-4.7); ABSOLUTE MONOCYTES # (MANUAL) 1.1 10^3/uL (0.1-1.4); ABSOLUTE NEUTROPHILS# (MANUAL) 10.3 10^3/uL (1.7-8.2); BASOPHILS % (MANUAL) 0 % (0-2); EOSINOPHILS % (MANUAL) 0 % (0-6); LYMPHOCYTES % (MANUAL) 25 % (13-45); MONOCYTES % (MANUAL) 7 % (3-13); SEGMENTED NEUTROPHILS % (MAN) 68 % (42-78); TOTAL CELLS COUNTED 100
[2017-05-24] MEDS: HYDROCODONE/ACETAMINOPHEN 5-325 MG TABLET PO PRN ×3 (05:13→22:13)
[2017-05-24] MEDS: LEVOTHYROXINE SODIUM 0.112 MG TABLET PO SCH (05:13)
[2017-05-24 05:14] LABS: PLATELET CLUMPS PRESENT; PLATELET COMMENT ADEQUATE; PLATELET COUNT 327 10^3/uL (150-450); POLYCHROMASIA SLIGHT; TOXIC GRANULATION SLIGHT
[2017-05-24] MEDS: CEFTRIAXONE 1 GM/D5W RTU 1 GM/50 ML RTUPB IV SCH (10:08)
[2017-05-24 10:41] LABS: VANCOMYCIN,TROUGH 11.4 ug/mL (5.0-20.0)
[2017-05-24] MEDS: VANCOMYCIN HCL 1,250 MG in DEXTROSE 5%-WATER 250 ML IV SCH (11:00)
--- NOTE | 2017-05-24 13:36 | RADIOLOGY REPORT (SQ) ---
EXAM DESCRIPTION: PICC INSERTION; U/S GUIDE FOR VASCULAR ACCESS; FLUORO/CV PLACEMENT COMPLETED DATE/TIME: 05/24/2017 1:16 pm REASON FOR STUDY: for IV acces for antibiotic ; IV ACCESS; IV ACCESS FOR ABX COMPARISON: None. FLUOROSCOPY TIME: 16 seconds. 2 images saved to PACS. TECHNIQUE: Fluoroscopic and ultrasound guided PICC placement. LIMITATIONS: None. PROCEDURE: After written consent and assessment were obtained, the patient was brought into the fluo roscopy room and place supine on the table. Ultrasound was used on the patient's left arm for PICC a ccess. The left arm was prepped and draped in a sterile fashion along with the ultrasound probe. The entry site was anesthetized with 1% lidocaine. A 21 gauge 7 cm needle was advanced through the skin a nd into the basilic vein under live ultrasound guidance. An ultrasound image was saved to PACS confi rming access site. A .018 guide wire was then inserted through the needle and into the venous system . The needle was the removed and an 11 blade scalpel was used to make a 1cm skin incision. A 5 fr pe el-away sheath was advanced over the wire and into the venous system. A measurement was then made usi ng the existing wire and live fluoroscopic guidance. The wire was then removed and the trimmed. The P ICC was advanced through the peel-away sheath and into the venous system. The peel-away sheath was re moved and the catheter was adhered to the patients arm with a stat lock. The catheter was then aspira marla and flushed and a sterile bandage was placed over the access site. A fluoroscopic spot image was saved to PACS confirming the catheter tip within the superior vena cava. IMPRESSION: SUCCESSFUL PLACEMENT OF A 5 FR DUAL LUMEN 38 CM PICC IN THE LEFT BASILIC VEIN. COMMENT: Patient medication list reviewed: Yes- Quality ID# 130:Eligible professional attests to doc umenting in the medical record they obtained, updated, or reviewed the patient's current medications. . Quality ID 145: Final reports for procedures using fluoroscopy that document radiation exposure dilma cathy, or exposure time and number of fluorographic images (if radiation exposure indices are not avail able) Quality ID #76: The patient was prepped and draped using maximum sterile barrier technique including cap, mask, sterile gown, sterile gloves, a large sterile sheet, hand hygiene, and 2% Chlorhexidine fo r cutaneous antisepsis. When ultrasound is used, sterile ultrasound techniques are followed requiring sterile gel and sterile probes. TECHNICAL DOCUMENTATION: JOB ID: [id number] [employer]- All Rights Reserved
--- NOTE | 2017-05-24 13:45 | PDOC PROGRESS REPORT ---
Subjective Progress Note for:: 05/24/17 Subjective:: She was seen at the bedside this morning, yesterday she complained of severe neck pain, she was very tender on mild palpation of the neck, MRI of the neck was done it showed abnormal contrast enhancement in the marrow of C2 and C3 vertebral bodies as well as abnormal soft tissue thickening and enhancement in the prevertebral soft tissues and in the epidural soft tissues thIS findings consistent with osteomyelitis of C3,C4. The radiologist could not do CT-guided aspiration/biopsy of the cervical vertebral bones because it was considered to be high risk procedure. She will empirically be treated with IV antibiotic, vancomycin and Rocephin for a total of 4-6 weeks to cover potential pathogens including MRSA and gram-negative organisms. It is most likely hematogenous spread to the vertebral bones, she was admitted initially for acute pyelonephritis and this is complicated with osteomyelitis of the cervical bones. She got a PICC line today Reason For Visit: PYELONEPHRITIS,AMS Physical Exam Vital Signs: Temp Pulse Resp BP Pulse Ox 97.8 F 72 20 182/76 H 95 05/24/17 11:27 05/24/17 11:27 05/24/17 11:27 05/24/17 11:27 05/24/17 11:27 Intake & Output 05/23/17 05/24/17 05/25/17 06:59 06:59 06:59 Intake Total 2715 3650 Balance 2715 3650 Weight 93.9 kg General appearance: PRESENT: no acute distress, well-developed, well-nourished Head exam: PRESENT: atraumatic, normocephalic Eye exam: PRESENT: conjunctiva pink, EOMI, PERRLA Ear exam: PRESENT: normal external ear exam Mouth exam: PRESENT: moist, tongue midline Neck exam: PRESENT: full ROM Respiratory exam: PRESENT: clear to auscultation rafat Cardiovascular exam: PRESENT: RRR, +S1, +S2 Vascular exam: PRESENT: normal capillary refill GI/Abdominal exam: PRESENT: normal bowel sounds, soft Rectal exam: PRESENT: deferred Neurological exam: PRESENT: alert, awake, oriented to person, oriented to place , oriented to time, oriented to situation, CN II-XII grossly intact Psychiatric exam: PRESENT: appropriate affect, normal mood Skin exam: PRESENT: dry, intact, warm Results Laboratory Results: 05/24/17 03:45 05/24/17 10:05 05/24/17 05/24/17 05/24/17 03:45 03:45 10:05 WBC 15.1 H RBC 5.10 Hgb 14.2 Hct 42.8 MCV 84 MCH 27.9 MCHC 33.2 RDW 13.9 Plt Count 327 Seg Neutrophils % Not Reportable Lymphocytes % Not Reportable Monocytes % Not Reportable Eosinophils % Not Reportable Basophils % Not Reportable Absolute Neutrophils Not Reportable Absolute Lymphocytes Not Reportable Absolute Monocytes Not Reportable Absolute Eosinophils Not Reportable Absolute Basophils Not Reportable Sodium 141.7 Potassium 3.9 Chloride 102 Carbon Dioxide 29 Anion Gap 11 BUN 11 Creatinine 0.54 0.55 Est GFR ( Amer) > 60 > 60 Est GFR (Non-Af Amer) > 60 > 60 Glucose 139 H Calcium 9.7 Total Bilirubin 0.3 AST 36 ALT 51 Alkaline Phosphatase 92 Total Protein 6.3 Albumin 3.3 L Impressions: Chest X-Ray 05/16/17 18:49 IMPRESSION: BORDERLINE CARDIOMEGALY WITH MILD VASCULAR CONGESTION. Head CT 05/16/17 18:49 IMPRESSION: NORMAL BRAIN CT WITHOUT CONTRAST. EVIDENCE OF ACUTE STROKE: NO. Cervical Spine MRI 05/22/17 00:00 IMPRESSION: ABNORMAL CONTRAST ENHANCEMENT IN THE MARROW OF THE C2 AND C3 VERTEBRAL BODIES WELL ABNORMAL SOFT TISSUE THICKENING AND ENHANCEMENT IN THE PREVERTEBRAL SOFT TISSUES AND IN THE EPIDURAL SOFT TISSUES DESCRIBED. FINDINGS ARE MOST LIKELY DUE TO INFECTION, DISCITIS WITH OSTEOMYELITIS OF THE C3 AND C4 VERTEBRAL BODIES AND ASSOCIATED INFECTIOUS PROCESS IN THE SOFT TISSUES INCLUDING THE EPIDURAL SOFT TISSUES. NO DISCRETE FORMED ABSCESS IS VISUALIZED AT THIS TIME. Guidance Fluoroscopy 05/24/17 00:00 IMPRESSION: SUCCESSFUL PLACEMENT OF A 5 FR DUAL LUMEN 38 CM PICC IN THE LEFT BASILIC VEIN. Interventional Vascular Procedure 05/24/17 00:00 IMPRESSION: SUCCESSFUL PLACEMENT OF A 5 FR DUAL LUMEN 38 CM PICC IN THE LEFT BASILIC VEIN. PICC Line Insertion 05/24/17 00:00 IMPRESSION: SUCCESSFUL PLACEMENT OF A 5 FR DUAL LUMEN 38 CM PICC IN THE LEFT BASILIC VEIN. Assessment & Plan - Diagnosis (1) Osteomyelitis of cervical spine Is this a current diagnosis for this admission?: Yes Plan: She will continue IV antibiotics, vancomycin and ceftriaxone (2) Pyelonephritis Is this a current diagnosis for this admission?: Yes (3) Altered mental status Qualifiers: Altered mental status type: delirium Qualified Code(s): R41.0 - Disorientation, unspecified (4) Acute kidney injury Is this a current diagnosis for this admission?: Yes (5) Acute pyelonephritis Is this a current diagnosis for this admission?: Yes (6) Toxic metabolic encephalopathy Is this a current diagnosis for this admission?: Yes (7) HTN (hypertension) Qualifiers: Hypertension type: essential hypertension Qualified Code(s): I10 - Essential (primary) hypertension Is this a current diagnosis for this admission?: Yes (8) Diabetes mellitus type 2 in obese Is this a current diagnosis for this admission?: Yes (9) Hypothyroidism Qualifiers: Hypothyroidism type: unspecified Qualified Code(s): E03.9 - Hypothyroidism , unspecified Is this a current diagnosis for this admission?: Yes (10) Cervical radiculopathy Is this a current diagnosis for this admission?: Yes
[2017-05-24] MEDS ORDERED: NORMAL SALINE 10 ML SDV (AFTER EACH USE) IV PRN (14:09)
[2017-05-24] MEDS: VANCOMYCIN HCL 1,000 MG in DEXTROSE 5%-WATER 250 ML IV SCH (18:05)
[2017-05-24] MEDS: NORMAL SALINE 10 ML SDV (SCHEDULED) IV SCH (22:13)
[2017-05-24] MEDS: NORMAL SALINE 1000 ML 1,000 ML IV PRN (22:14)
[2017-05-25] MEDS: VANCOMYCIN HCL 1,000 MG in DEXTROSE 5%-WATER 250 ML IV SCH ×3 (01:10→18:17)
[2017-05-25] MEDS: HYDROCODONE/ACETAMINOPHEN 5-325 MG TABLET PO PRN ×2 (04:13→09:09)
[2017-05-25 05:01] LABS: HEMATOCRIT 39.1 % (36.0-47.0); HEMOGLOBIN 12.8 g/dL (12.0-15.5); MEAN CORPUSCULAR HEMOGLOBIN 27.7 pg (27.0-33.4); MEAN CORPUSCULAR HGB CONC 32.7 g/dL (32.0-36.0); MEAN CORPUSCULAR VOLUME 85 fl (80-97); PLATELET COUNT 338 10^3/uL (150-450); RED BLOOD COUNT 4.62 10^6/uL (3.72-5.28); WHITE BLOOD COUNT 15.7 10^3/uL (4.0-10.5)
[2017-05-25 05:05] LABS: ALANINE AMINOTRANSFERASE 47 U/L (9-52); ALBUMIN 2.9 g/dL (3.5-5.0); ALKALINE PHOSPHATASE 83 U/L (38-126); ANION GAP 8 (5-19); ASPARTATE AMINO TRANSFERASE 25 U/L (14-36); BILIRUBIN,DIRECT 0.1 mg/dL (0.0-0.4); BILIRUBIN,TOTAL 0.2 mg/dL (0.2-1.3); BLOOD UREA NITROGEN 11 mg/dL (7-20); CALCIUM 9.2 mg/dL (8.4-10.2); CARBON DIOXIDE 31 mmol/L (22-30); CHLORIDE 104 mmol/L (98-107); GLUCOSE 120 mg/dL (75-110); POTASSIUM 3.8 mmol/L (3.6-5.0); SODIUM 142.6 mmol/L (137-145); TOTAL PROTEIN 5.8 g/dL (6.3-8.2)
[2017-05-25 05:28] LABS: ABSOLUTE LYMPHOCYTES# (MANUAL) 4.2 10^3/uL (0.5-4.7); ABSOLUTE MONOCYTES # (MANUAL) 1.4 10^3/uL (0.1-1.4); ABSOLUTE NEUTROPHILS# (MANUAL) 9.9 10^3/uL (1.7-8.2); BAND NEUTROPHILS % (MANUAL) 2 % (3-5); BASOPHILS % (MANUAL) 1 % (0-2); EOSINOPHILS % (MANUAL) 0 % (0-6); LYMPHOCYTES % (MANUAL) 23 % (13-45); METAMYELOCYTES % (MANUAL) 2 % (0); MONOCYTES % (MANUAL) 9 % (3-13); SEGMENTED NEUTROPHILS % (MAN) 59 % (42-78); TOTAL CELLS COUNTED 100
[2017-05-25 05:29] LABS: ANISOCYTOSIS SLIGHT; PLATELET COMMENT ADEQUATE; POLYCHROMASIA SLIGHT
[2017-05-25] MEDS: LEVOTHYROXINE SODIUM 0.112 MG TABLET PO SCH (06:20)
[2017-05-25] MEDS: CEFTRIAXONE 1 GM/D5W RTU 1 GM/50 ML RTUPB IV SCH (09:11)
[2017-05-25] MEDS: NORMAL SALINE 10 ML SDV (SCHEDULED) IV SCH ×2 (10:19→22:04)
[2017-05-25] MEDS: ACETAMINOPHEN 325 MG TABLET PO PRN (11:01)
[2017-05-25 11:11] LABS: VANCOMYCIN,TROUGH 12.4 ug/mL (5.0-20.0)
--- NOTE | 2017-05-25 13:53 | PDOC PROGRESS REPORT ---
Subjective Progress Note for:: 05/25/17 Subjective:: She was seen by the bedside, the urine culture grew Enterococcus faecalis, sensitive to vancomycin. The colony count was not significantly high to suggest infection. She was admitted initially for management of acute pyelonephritis, this was complicated with osteomyelitis of the cervical spine, this is most likely from hematogenous spread, she is empirically on vancomycin, this will cover E faecalis. It is assumed that the osteomyelitis of the cervical spine is probably from E faecalis spread, hematogenously to the cervical spine. A PICC line was placed yesterday in anticipation for IV antibiotic for 4-6 weeks Reason For Visit: PYELONEPHRITIS,AMS Physical Exam Vital Signs: Temp Pulse Resp BP Pulse Ox 97.4 F 64 18 182/71 H 98 05/25/17 12:00 05/25/17 12:00 05/25/17 12:00 05/25/17 12:00 05/25/17 12:00 Intake & Output 05/24/17 05/25/17 05/26/17 06:59 06:59 06:59 Intake Total 3650 2790 Balance 3650 2790 Weight 93.9 kg General appearance: PRESENT: no acute distress, well-developed, well-nourished Head exam: PRESENT: atraumatic, normocephalic Eye exam: PRESENT: conjunctiva pink, EOMI, PERRLA Ear exam: PRESENT: normal external ear exam Mouth exam: PRESENT: moist, tongue midline Neck exam: PRESENT: full ROM Cardiovascular exam: PRESENT: RRR, +S1, +S2 Pulses: PRESENT: normal dorsalis pedis pul, +2 pedal pulses bilateral Vascular exam: PRESENT: normal capillary refill GI/Abdominal exam: PRESENT: normal bowel sounds, soft Rectal exam: PRESENT: deferred Neurological exam: PRESENT: alert, awake, oriented to person, oriented to place , oriented to time, oriented to situation, CN II-XII grossly intact Psychiatric exam: PRESENT: appropriate affect, normal mood Skin exam: PRESENT: dry, intact, warm Results Laboratory Results: 05/25/17 04:43 05/25/17 04:43 05/25/17 05/25/17 04:43 04:43 WBC 15.7 H RBC 4.62 Hgb 12.8 Hct 39.1 MCV 85 MCH 27.7 MCHC 32.7 RDW 14.0 Plt Count 338 Seg Neutrophils % Not Reportable Lymphocytes % Not Reportable Monocytes % Not Reportable Eosinophils % Not Reportable Basophils % Not Reportable Absolute Neutrophils Not Reportable Absolute Lymphocytes Not Reportable Absolute Monocytes Not Reportable Absolute Eosinophils Not Reportable Absolute Basophils Not Reportable Sodium 142.6 Potassium 3.8 Chloride 104 Carbon Dioxide 31 H Anion Gap 8 BUN 11 Creatinine 0.55 Est GFR ( Amer) > 60 Est GFR (Non-Af Amer) > 60 Glucose 120 H Calcium 9.2 Total Bilirubin 0.2 AST 25 ALT 47 Alkaline Phosphatase 83 Total Protein 5.8 L Albumin 2.9 L 05/21/17 21:45 Clean Catch Midstream Urine Culture - Final Enterococcus Faecalis(Group D) Impressions: Chest X-Ray 05/16/17 18:49 IMPRESSION: BORDERLINE CARDIOMEGALY WITH MILD VASCULAR CONGESTION. Head CT 05/16/17 18:49 IMPRESSION: NORMAL BRAIN CT WITHOUT CONTRAST. EVIDENCE OF ACUTE STROKE: NO. Cervical Spine MRI 05/22/17 00:00 IMPRESSION: ABNORMAL CONTRAST ENHANCEMENT IN THE MARROW OF THE C2 AND C3 VERTEBRAL BODIES WELL ABNORMAL SOFT TISSUE THICKENING AND ENHANCEMENT IN THE PREVERTEBRAL SOFT TISSUES AND IN THE EPIDURAL SOFT TISSUES DESCRIBED. FINDINGS ARE MOST LIKELY DUE TO INFECTION, DISCITIS WITH OSTEOMYELITIS OF THE C3 AND C4 VERTEBRAL BODIES AND ASSOCIATED INFECTIOUS PROCESS IN THE SOFT TISSUES INCLUDING THE EPIDURAL SOFT TISSUES. NO DISCRETE FORMED ABSCESS IS VISUALIZED AT THIS TIME. Guidance Fluoroscopy 05/24/17 00:00 IMPRESSION: SUCCESSFUL PLACEMENT OF A 5 FR DUAL LUMEN 38 CM PICC IN THE LEFT BASILIC VEIN. Interventional Vascular Procedure 05/24/17 00:00 IMPRESSION: SUCCESSFUL PLACEMENT OF A 5 FR DUAL LUMEN 38 CM PICC IN THE LEFT BASILIC VEIN. PICC Line Insertion 05/24/17 00:00 IMPRESSION: SUCCESSFUL PLACEMENT OF A 5 FR DUAL LUMEN 38 CM PICC IN THE LEFT BASILIC VEIN. Assessment & Plan - Diagnosis (1) Osteomyelitis of cervical spine Is this a current diagnosis for this admission?: Yes Plan: Continue IV antibiotic (2) Pyelonephritis Is this a current diagnosis for this admission?: Yes (3) Altered mental status Qualifiers: Altered mental status type: delirium Qualified Code(s): R41.0 - Disorientation, unspecified (4) Acute kidney injury Is this a current diagnosis for this admission?: Yes (5) Acute pyelonephritis Is this a current diagnosis for this admission?: Yes (6) Toxic metabolic encephalopathy Is this a current diagnosis for this admission?: Yes (7) HTN (hypertension) Qualifiers: Hypertension type: essential hypertension Qualified Code(s): I10 - Essential (primary) hypertension Is this a current diagnosis for this admission?: Yes (8) Diabetes mellitus type 2 in obese Is this a current diagnosis for this admission?: Yes (9) Hypothyroidism Qualifiers: Hypothyroidism type: unspecified Qualified Code(s): E03.9 - Hypothyroidism , unspecified Is this a current diagnosis for this admission?: Yes (10) Cervical radiculopathy Is this a current diagnosis for this admission?: Yes (11) Hypertension Qualifiers: Hypertension type: essential hypertension Qualified Code(s): I10 - Essential (primary) hypertension Is this a current diagnosis for this admission?: Yes Plan: Start amlodipine,5mg PO daily
[2017-05-25] MEDS: TIZANIDINE HCL 4 MG TABLET PO PRN (15:20)
[2017-05-25] MEDS ORDERED: AMLODIPINE BESYLATE 5 MG TABLET PO ONE (15:30)
[2017-05-25] MEDS ORDERED: HYDROCODONE/ACETAMINOPHEN 5-325 MG TABLET ONE (19:49)
[2017-05-25] MEDS: NORMAL SALINE 1000 ML 1,000 ML IV PRN (22:04)
[2017-05-26] MEDS: VANCOMYCIN HCL 1,000 MG in DEXTROSE 5%-WATER 250 ML IV SCH ×3 (02:25→18:09)
[2017-05-26] MEDS: HYDROCODONE/ACETAMINOPHEN 5-325 MG TABLET PO PRN ×6 (02:27→23:54)
[2017-05-26] MEDS: LEVOTHYROXINE SODIUM 0.112 MG TABLET PO SCH (05:28)
[2017-05-26 06:05] LABS: HEMATOCRIT 40.3 % (36.0-47.0); HEMOGLOBIN 13.2 g/dL (12.0-15.5); MEAN CORPUSCULAR HEMOGLOBIN 27.6 pg (27.0-33.4); MEAN CORPUSCULAR HGB CONC 32.7 g/dL (32.0-36.0); MEAN CORPUSCULAR VOLUME 84 fl (80-97); PLATELET COUNT 311 10^3/uL (150-450); RED BLOOD COUNT 4.78 10^6/uL (3.72-5.28); RED CELL DISTRIBUTION WIDTH 13.9 % (11.5-14.0)
[2017-05-26 06:18] LABS: ALANINE AMINOTRANSFERASE 41 U/L (9-52); ALBUMIN 3.3 g/dL (3.5-5.0); ALKALINE PHOSPHATASE 80 U/L (38-126); ASPARTATE AMINO TRANSFERASE 27 U/L (14-36); BILIRUBIN,DIRECT 0.2 mg/dL (0.0-0.4); BILIRUBIN,TOTAL 0.2 mg/dL (0.2-1.3); BLOOD UREA NITROGEN 12 mg/dL (7-20); CALCIUM 9.5 mg/dL (8.4-10.2); CARBON DIOXIDE 30 mmol/L (22-30); CHLORIDE 102 mmol/L (98-107); GLUCOSE 128 mg/dL (75-110); POTASSIUM 4.2 mmol/L (3.6-5.0); TOTAL PROTEIN 6.4 g/dL (6.3-8.2)
[2017-05-26 06:23] LABS: ANION GAP 9 (5-19); SODIUM 140.8 mmol/L (137-145)
[2017-05-26 06:32] LABS: ABSOLUTE LYMPHOCYTES# (MANUAL) 2.6 10^3/uL (0.5-4.7); ABSOLUTE MONOCYTES # (MANUAL) 1.9 10^3/uL (0.1-1.4); ABSOLUTE NEUTROPHILS# (MANUAL) 11.5 10^3/uL (1.7-8.2); BAND NEUTROPHILS % (MANUAL) 8 % (3-5); BASOPHILS % (MANUAL) 0 % (0-2); EOSINOPHILS % (MANUAL) 0 % (0-6); LYMPHOCYTES % (MANUAL) 14 % (13-45); METAMYELOCYTES % (MANUAL) 1 % (0); MONOCYTES % (MANUAL) 12 % (3-13); SEGMENTED NEUTROPHILS % (MAN) 63 % (42-78); TOTAL CELLS COUNTED 100
[2017-05-26 06:34] LABS: PLATELET COMMENT ADEQUATE; RBC MORPHOLOGY COMMENT NORMO-CYTIC/CHROMIC; TOXIC GRANULATION SLIGHT
[2017-05-26] MEDS: AMLODIPINE BESYLATE 5 MG TABLET PO SCH (10:39)
[2017-05-26] MEDS: CEFTRIAXONE 1 GM/D5W RTU 1 GM/50 ML RTUPB IV SCH (10:40)
[2017-05-26] MEDS: NORMAL SALINE 10 ML SDV (SCHEDULED) IV SCH ×2 (10:41→21:48)
--- NOTE | 2017-05-26 20:25 | PDOC PROGRESS REPORT ---
Subjective Progress Note for:: 05/26/17 Subjective:: She was seen by the bedside, the urine culture grew Enterococcus faecalis, sensitive to vancomycin. The colony count was not significantly high to suggest infection. She was admitted initially for management of acute pyelonephritis, this was complicated with osteomyelitis of the cervical spine, this is most likely from hematogenous spread, she is empirically on vancomycin, this will cover E faecalis. It is assumed that the osteomyelitis of the cervical spine is probably from E faecalis spread, hematogenously to the cervical spine. She complained of neck pain Reason For Visit: PYELONEPHRITIS,AMS Physical Exam Vital Signs: Temp Pulse Resp BP Pulse Ox 97.7 F 64 20 176/66 H 95 05/26/17 15:20 05/26/17 19:00 05/26/17 15:20 05/26/17 15:20 05/26/17 15:20 Intake & Output 05/25/17 05/26/17 05/27/17 06:59 06:59 06:59 Intake Total 2790 3808 1080 Balance 2790 3808 1080 General appearance: PRESENT: no acute distress Head exam: PRESENT: atraumatic, normocephalic Neck exam: PRESENT: full ROM Respiratory exam: PRESENT: clear to auscultation rafat Cardiovascular exam: PRESENT: RRR, +S1, +S2 Vascular exam: PRESENT: normal capillary refill GI/Abdominal exam: PRESENT: normal bowel sounds, soft Rectal exam: PRESENT: deferred Neurological exam: PRESENT: alert Psychiatric exam: PRESENT: appropriate affect, normal mood Skin exam: PRESENT: dry, intact, warm. ABSENT: cyanosis, rash Results Laboratory Results: 05/26/17 05:30 05/26/17 05:30 05/26/17 05/26/17 05:30 05:30 WBC 16.0 H RBC 4.78 Hgb 13.2 Hct 40.3 MCV 84 MCH 27.6 MCHC 32.7 RDW 13.9 Plt Count 311 Seg Neutrophils % Not Reportable Lymphocytes % Not Reportable Monocytes % Not Reportable Eosinophils % Not Reportable Basophils % Not Reportable Absolute Neutrophils Not Reportable Absolute Lymphocytes Not Reportable Absolute Monocytes Not Reportable Absolute Eosinophils Not Reportable Absolute Basophils Not Reportable Sodium 140.8 Potassium 4.2 Chloride 102 Carbon Dioxide 30 Anion Gap 9 BUN 12 Creatinine 0.62 Est GFR ( Amer) > 60 Est GFR (Non-Af Amer) > 60 Glucose 128 H Calcium 9.5 Total Bilirubin 0.2 AST 27 ALT 41 Alkaline Phosphatase 80 Total Protein 6.4 Albumin 3.3 L Impressions: Chest X-Ray 05/16/17 18:49 IMPRESSION: BORDERLINE CARDIOMEGALY WITH MILD VASCULAR CONGESTION. Head CT 05/16/17 18:49 IMPRESSION: NORMAL BRAIN CT WITHOUT CONTRAST. EVIDENCE OF ACUTE STROKE: NO. Cervical Spine MRI 05/22/17 00:00 IMPRESSION: ABNORMAL CONTRAST ENHANCEMENT IN THE MARROW OF THE C2 AND C3 VERTEBRAL BODIES WELL ABNORMAL SOFT TISSUE THICKENING AND ENHANCEMENT IN THE PREVERTEBRAL SOFT TISSUES AND IN THE EPIDURAL SOFT TISSUES DESCRIBED. FINDINGS ARE MOST LIKELY DUE TO INFECTION, DISCITIS WITH OSTEOMYELITIS OF THE C3 AND C4 VERTEBRAL BODIES AND ASSOCIATED INFECTIOUS PROCESS IN THE SOFT TISSUES INCLUDING THE EPIDURAL SOFT TISSUES. NO DISCRETE FORMED ABSCESS IS VISUALIZED AT THIS TIME. Guidance Fluoroscopy 05/24/17 00:00 IMPRESSION: SUCCESSFUL PLACEMENT OF A 5 FR DUAL LUMEN 38 CM PICC IN THE LEFT BASILIC VEIN. Interventional Vascular Procedure 05/24/17 00:00 IMPRESSION: SUCCESSFUL PLACEMENT OF A 5 FR DUAL LUMEN 38 CM PICC IN THE LEFT BASILIC VEIN. PICC Line Insertion 05/24/17 00:00 IMPRESSION: SUCCESSFUL PLACEMENT OF A 5 FR DUAL LUMEN 38 CM PICC IN THE LEFT BASILIC VEIN. Assessment & Plan - Diagnosis (1) Osteomyelitis of cervical spine Is this a current diagnosis for this admission?: Yes (2) Pyelonephritis Is this a current diagnosis for this admission?: Yes (3) Altered mental status Qualifiers: Altered mental status type: delirium Qualified Code(s): R41.0 - Disorientation, unspecified (4) Acute kidney injury Is this a current diagnosis for this admission?: Yes (5) Acute pyelonephritis Is this a current diagnosis for this admission?: Yes (6) Toxic metabolic encephalopathy Is this a current diagnosis for this admission?: Yes (7) HTN (hypertension) Qualifiers: Hypertension type: essential hypertension Qualified Code(s): I10 - Essential (primary) hypertension Is this a current diagnosis for this admission?: Yes (8) Diabetes mellitus type 2 in obese Is this a current diagnosis for this admission?: Yes (9) Hypothyroidism Qualifiers: Hypothyroidism type: unspecified Qualified Code(s): E03.9 - Hypothyroidism , unspecified Is this a current diagnosis for this admission?: Yes (10) Cervical radiculopathy Is this a current diagnosis for this admission?: Yes (11) Hypertension Qualifiers: Hypertension type: essential hypertension Qualified Code(s): I10 - Essential (primary) hypertension Is this a current diagnosis for this admission?: Yes
[2017-05-27] MEDS: VANCOMYCIN HCL 1,000 MG in DEXTROSE 5%-WATER 250 ML IV SCH ×3 (01:52→18:20)
[2017-05-27] MEDS: HYDROCODONE/ACETAMINOPHEN 5-325 MG TABLET PO PRN ×5 (03:57→23:40)
[2017-05-27] MEDS: LEVOTHYROXINE SODIUM 0.112 MG TABLET PO SCH (05:07)
[2017-05-27 05:23] LABS: MEAN CORPUSCULAR HEMOGLOBIN 28.1 pg (27.0-33.4); MEAN CORPUSCULAR HGB CONC 33.2 g/dL (32.0-36.0); MEAN CORPUSCULAR VOLUME 85 fl (80-97); PLATELET COUNT 285 10^3/uL (150-450); RED BLOOD COUNT 4.62 10^6/uL (3.72-5.28); RED CELL DISTRIBUTION WIDTH 13.7 % (11.5-14.0); WHITE BLOOD COUNT 14.3 10^3/uL (4.0-10.5)
[2017-05-27 05:31] LABS: ALANINE AMINOTRANSFERASE 42 U/L (9-52); ALBUMIN 3.2 g/dL (3.5-5.0); ALKALINE PHOSPHATASE 79 U/L (38-126); ANION GAP 7 (5-19); ASPARTATE AMINO TRANSFERASE 24 U/L (14-36); BILIRUBIN,DIRECT 0.2 mg/dL (0.0-0.4); BILIRUBIN,TOTAL 0.4 mg/dL (0.2-1.3); BLOOD UREA NITROGEN 9 mg/dL (7-20); CALCIUM 9.3 mg/dL (8.4-10.2); CARBON DIOXIDE 31 mmol/L (22-30); CHLORIDE 103 mmol/L (98-107); GLUCOSE 117 mg/dL (75-110); POTASSIUM 4.1 mmol/L (3.6-5.0); SODIUM 141.2 mmol/L (137-145)
[2017-05-27 06:04] LABS: ABSOLUTE LYMPHOCYTES# (MANUAL) 2.7 10^3/uL (0.5-4.7); ABSOLUTE NEUTROPHILS# (MANUAL) 10.6 10^3/uL (1.7-8.2); BAND NEUTROPHILS % (MANUAL) 4 % (3-5); BASOPHILS % (MANUAL) 0 % (0-2); EOSINOPHILS % (MANUAL) 0 % (0-6); LYMPHOCYTES % (MANUAL) 19 % (13-45); MONOCYTES % (MANUAL) 7 % (3-13); PLATELET COMMENT ADEQUATE; RBC MORPHOLOGY COMMENT NORMO-CYTIC/CHROMIC; SEGMENTED NEUTROPHILS % (MAN) 70 % (42-78); TOTAL CELLS COUNTED 100; TOXIC GRANULATION SLIGHT
[2017-05-27] MEDS: AMLODIPINE BESYLATE 5 MG TABLET PO SCH (09:46)
[2017-05-27] MEDS: CEFTRIAXONE 1 GM/D5W RTU 1 GM/50 ML RTUPB IV SCH (09:47)
[2017-05-27] MEDS: NORMAL SALINE 10 ML SDV (SCHEDULED) IV SCH ×2 (09:48→21:34)
[2017-05-27] MEDS: NORMAL SALINE 1000 ML 1,000 ML IV PRN (10:50)
--- NOTE | 2017-05-27 18:58 | PDOC PROGRESS REPORT ---
Subjective Progress Note for:: 05/27/17 Subjective:: She was seen by the bedside, the urine culture grew Enterococcus faecalis, sensitive to vancomycin. The colony count was not significantly high to suggest infection. She was admitted initially for management of acute pyelonephritis, this was complicated with osteomyelitis of the cervical spine, this is most likely from hematogenous spread, she is empirically on vancomycin, this will cover E faecalis. It is assumed that the osteomyelitis of the cervical spine is probably from E faecalis spread, hematogenously to the cervical spine. She complained of neck pain. Dr. Keith we will arrange for outpatient IV antibiotic for 4-6 weeks, she is presently on vancomycin and Rocephin Reason For Visit: PYELONEPHRITIS,AMS Physical Exam Vital Signs: Temp Pulse Resp BP Pulse Ox 97.6 F 78 18 173/73 H 95 05/27/17 16:00 05/27/17 16:00 05/27/17 16:00 05/27/17 16:00 05/27/17 16:00 Intake & Output 05/26/17 05/27/17 05/28/17 06:59 06:59 06:59 Intake Total 3808 1650 1770 Balance 3808 1650 1770 General appearance: PRESENT: no acute distress Eye exam: PRESENT: PERRLA Respiratory exam: PRESENT: clear to auscultation rafat Cardiovascular exam: PRESENT: +S1, +S2 GI/Abdominal exam: PRESENT: soft Neurological exam: PRESENT: alert Results Laboratory Results: 05/27/17 05:00 05/27/17 05:00 05/27/17 05/27/17 05:00 05:00 WBC 14.3 H RBC 4.62 Hgb 13.0 Hct 39.0 MCV 85 MCH 28.1 MCHC 33.2 RDW 13.7 Plt Count 285 Seg Neutrophils % Not Reportable Lymphocytes % Not Reportable Monocytes % Not Reportable Eosinophils % Not Reportable Basophils % Not Reportable Absolute Neutrophils Not Reportable Absolute Lymphocytes Not Reportable Absolute Monocytes Not Reportable Absolute Eosinophils Not Reportable Absolute Basophils Not Reportable Sodium 141.2 Potassium 4.1 Chloride 103 Carbon Dioxide 31 H Anion Gap 7 BUN 9 Creatinine 0.57 Est GFR ( Amer) > 60 Est GFR (Non-Af Amer) > 60 Glucose 117 H Calcium 9.3 Total Bilirubin 0.4 AST 24 ALT 42 Alkaline Phosphatase 79 Total Protein 6.0 L Albumin 3.2 L Impressions: Chest X-Ray 05/16/17 18:49 IMPRESSION: BORDERLINE CARDIOMEGALY WITH MILD VASCULAR CONGESTION. Head CT 05/16/17 18:49 IMPRESSION: NORMAL BRAIN CT WITHOUT CONTRAST. EVIDENCE OF ACUTE STROKE: NO. Cervical Spine MRI 05/22/17 00:00 IMPRESSION: ABNORMAL CONTRAST ENHANCEMENT IN THE MARROW OF THE C2 AND C3 VERTEBRAL BODIES WELL ABNORMAL SOFT TISSUE THICKENING AND ENHANCEMENT IN THE PREVERTEBRAL SOFT TISSUES AND IN THE EPIDURAL SOFT TISSUES DESCRIBED. FINDINGS ARE MOST LIKELY DUE TO INFECTION, DISCITIS WITH OSTEOMYELITIS OF THE C3 AND C4 VERTEBRAL BODIES AND ASSOCIATED INFECTIOUS PROCESS IN THE SOFT TISSUES INCLUDING THE EPIDURAL SOFT TISSUES. NO DISCRETE FORMED ABSCESS IS VISUALIZED AT THIS TIME. Guidance Fluoroscopy 05/24/17 00:00 IMPRESSION: SUCCESSFUL PLACEMENT OF A 5 FR DUAL LUMEN 38 CM PICC IN THE LEFT BASILIC VEIN. Interventional Vascular Procedure 05/24/17 00:00 IMPRESSION: SUCCESSFUL PLACEMENT OF A 5 FR DUAL LUMEN 38 CM PICC IN THE LEFT BASILIC VEIN. PICC Line Insertion 05/24/17 00:00 IMPRESSION: SUCCESSFUL PLACEMENT OF A 5 FR DUAL LUMEN 38 CM PICC IN THE LEFT BASILIC VEIN. Assessment & Plan - Diagnosis (1) Osteomyelitis of cervical spine Is this a current diagnosis for this admission?: Yes (2) Pyelonephritis Is this a current diagnosis for this admission?: Yes (3) Altered mental status Qualifiers: Altered mental status type: delirium Qualified Code(s): R41.0 - Disorientation, unspecified (4) Acute kidney injury Is this a current diagnosis for this admission?: Yes (5) Acute pyelonephritis Is this a current diagnosis for this admission?: Yes (6) Toxic metabolic encephalopathy Is this a current diagnosis for this admission?: Yes (7) HTN (hypertension) Qualifiers: Hypertension type: essential hypertension Qualified Code(s): I10 - Essential (primary) hypertension Is this a current diagnosis for this admission?: Yes (8) Diabetes mellitus type 2 in obese Is this a current diagnosis for this admission?: Yes (9) Hypothyroidism Qualifiers: Hypothyroidism type: unspecified Qualified Code(s): E03.9 - Hypothyroidism , unspecified Is this a current diagnosis for this admission?: Yes (10) Cervical radiculopathy Is this a current diagnosis for this admission?: Yes (11) Hypertension Qualifiers: Hypertension type: essential hypertension Qualified Code(s): I10 - Essential (primary) hypertension Is this a current diagnosis for this admission?: Yes - Plan Summary Plan Summary: She will continue present treatment
[2017-05-28] MEDS: VANCOMYCIN HCL 1,000 MG in DEXTROSE 5%-WATER 250 ML IV SCH ×3 (01:14→17:05)
[2017-05-28] MEDS: HYDROCODONE/ACETAMINOPHEN 5-325 MG TABLET PO PRN ×3 (04:09→12:12)
[2017-05-28 05:02] LABS: HEMATOCRIT 39.1 % (36.0-47.0); HEMOGLOBIN 12.9 g/dL (12.0-15.5); MEAN CORPUSCULAR HEMOGLOBIN 27.7 pg (27.0-33.4); MEAN CORPUSCULAR VOLUME 84 fl (80-97); PLATELET COUNT 275 10^3/uL (150-450); RED BLOOD COUNT 4.65 10^6/uL (3.72-5.28); RED CELL DISTRIBUTION WIDTH 13.8 % (11.5-14.0); WHITE BLOOD COUNT 15.8 10^3/uL (4.0-10.5)
[2017-05-28 05:15] LABS: ALANINE AMINOTRANSFERASE 39 U/L (9-52); ALBUMIN 3.2 g/dL (3.5-5.0); ALKALINE PHOSPHATASE 82 U/L (38-126); ANION GAP 9 (5-19); ASPARTATE AMINO TRANSFERASE 23 U/L (14-36); BILIRUBIN,DIRECT 0.2 mg/dL (0.0-0.4); BILIRUBIN,TOTAL 0.3 mg/dL (0.2-1.3); BLOOD UREA NITROGEN 12 mg/dL (7-20); CALCIUM 9.5 mg/dL (8.4-10.2); CARBON DIOXIDE 31 mmol/L (22-30); CHLORIDE 100 mmol/L (98-107); GLUCOSE 119 mg/dL (75-110); POTASSIUM 4.3 mmol/L (3.6-5.0); SODIUM 140.2 mmol/L (137-145); TOTAL PROTEIN 6.1 g/dL (6.3-8.2)
[2017-05-28 05:21] LABS: ABSOLUTE LYMPHOCYTES# (MANUAL) 4.1 10^3/uL (0.5-4.7); ABSOLUTE MONOCYTES # (MANUAL) 1.4 10^3/uL (0.1-1.4); ABSOLUTE NEUTROPHILS# (MANUAL) 10.3 10^3/uL (1.7-8.2); BAND NEUTROPHILS % (MANUAL) 1 % (3-5); BASOPHILS % (MANUAL) 0 % (0-2); EOSINOPHILS % (MANUAL) 0 % (0-6); LYMPHOCYTES % (MANUAL) 22 % (13-45); MONOCYTES % (MANUAL) 9 % (3-13); SEGMENTED NEUTROPHILS % (MAN) 64 % (42-78); TOTAL CELLS COUNTED 100
[2017-05-28 05:22] LABS: PLATELET COMMENT ADEQUATE; RBC MORPHOLOGY COMMENT NORMO-CYTIC/CHROMIC
[2017-05-28] MEDS: LEVOTHYROXINE SODIUM 0.112 MG TABLET PO SCH (06:02)
[2017-05-28] MEDS: AMLODIPINE BESYLATE 5 MG TABLET PO SCH (10:58)
[2017-05-28] MEDS: NORMAL SALINE 10 ML SDV (SCHEDULED) IV SCH ×2 (10:58→21:57)
[2017-05-28] MEDS: CEFTRIAXONE 1 GM/D5W RTU 1 GM/50 ML RTUPB IV SCH (10:59)
--- NOTE | 2017-05-28 12:22 | PDOC PROGRESS REPORT ---
Subjective Progress Note for:: 05/28/17 Subjective:: Patient hospitalization has been further complicated with development of cervical spine osteomyelitis. Suspected causative organism is group D Enterococcus Faecalis. Her initial outpatient urine culture revealed mixed urogenital tramaine with colony growth of 50-60,000 col/ml. Sensitivity reported suggested Vancomycin as appropriate therapy. She was initially treated with oral Levofloxacin to which the organism was resistant. Her osteomyelitis could be from hematogenous spread. She denied any instrumentation around site of cervical osteomyelitis. She continue to experience neck pain with some degree of relief on current medication management. She reported worsening pain with straining and coughing. She denied any chest pain or difficulty with breathing. Her initial constipation have resolved following MRI with contrast procedure. No nausea or vomiting. Tolerating oral feeding. Expressed some concern about her current anti hypertensive therapy due to drop in blood pressure in the evening time and bitter taste of the medication. Reason For Visit: PYELONEPHRITIS,AMS Physical Exam Vital Signs: Temp Pulse Resp BP Pulse Ox 97.7 F 62 16 170/69 H 95 05/28/17 07:35 05/28/17 07:35 05/28/17 07:35 05/28/17 07:35 05/28/17 07:35 Intake & Output 05/27/17 05/28/17 05/29/17 06:59 06:59 06:59 Intake Total 1650 2045 Balance 1650 2045 General appearance: PRESENT: no acute distress, obese Head exam: PRESENT: atraumatic, normocephalic Eye exam: PRESENT: conjunctiva pink, EOMI, PERRLA. ABSENT: scleral icterus Mouth exam: PRESENT: moist Respiratory exam: PRESENT: clear to auscultation rafat Cardiovascular exam: PRESENT: RRR. ABSENT: diastolic murmur, rubs, systolic murmur Vascular exam: ABSENT: pallor GI/Abdominal exam: PRESENT: normal bowel sounds, soft. ABSENT: distended, guarding, mass, organolmegaly, rebound, tenderness Extremities exam: ABSENT: pedal edema Musculoskeletal exam: PRESENT: tenderness - right forearm site of prior IV access. Left arm PICC line site in satisfactory condition. Neurological exam: PRESENT: alert, awake, oriented to person, oriented to place , oriented to time, oriented to situation, CN II-XII grossly intact. ABSENT: motor sensory deficit Psychiatric exam: PRESENT: appropriate affect, normal mood. ABSENT: homicidal ideation, suicidal ideation Skin exam: PRESENT: dry, warm. ABSENT: cyanosis, rash Results Laboratory Results: 05/28/17 04:30 05/28/17 04:30 05/28/17 05/28/17 04:30 04:30 WBC 15.8 H RBC 4.65 Hgb 12.9 Hct 39.1 MCV 84 MCH 27.7 MCHC 33.0 RDW 13.8 Plt Count 275 Seg Neutrophils % Not Reportable Lymphocytes % Not Reportable Monocytes % Not Reportable Eosinophils % Not Reportable Basophils % Not Reportable Absolute Neutrophils Not Reportable Absolute Lymphocytes Not Reportable Absolute Monocytes Not Reportable Absolute Eosinophils Not Reportable Absolute Basophils Not Reportable Sodium 140.2 Potassium 4.3 Chloride 100 Carbon Dioxide 31 H Anion Gap 9 BUN 12 Creatinine 0.55 Est GFR ( Amer) > 60 Est GFR (Non-Af Amer) > 60 Glucose 119 H Calcium 9.5 Total Bilirubin 0.3 AST 23 ALT 39 Alkaline Phosphatase 82 Total Protein 6.1 L Albumin 3.2 L Impressions: Chest X-Ray 05/16/17 18:49 IMPRESSION: BORDERLINE CARDIOMEGALY WITH MILD VASCULAR CONGESTION. Head CT 05/16/17 18:49 IMPRESSION: NORMAL BRAIN CT WITHOUT CONTRAST. EVIDENCE OF ACUTE STROKE: NO. Cervical Spine MRI 05/22/17 00:00 IMPRESSION: ABNORMAL CONTRAST ENHANCEMENT IN THE MARROW OF THE C2 AND C3 VERTEBRAL BODIES WELL ABNORMAL SOFT TISSUE THICKENING AND ENHANCEMENT IN THE PREVERTEBRAL SOFT TISSUES AND IN THE EPIDURAL SOFT TISSUES DESCRIBED. FINDINGS ARE MOST LIKELY DUE TO INFECTION, DISCITIS WITH OSTEOMYELITIS OF THE C3 AND C4 VERTEBRAL BODIES AND ASSOCIATED INFECTIOUS PROCESS IN THE SOFT TISSUES INCLUDING THE EPIDURAL SOFT TISSUES. NO DISCRETE FORMED ABSCESS IS VISUALIZED AT THIS TIME. Guidance Fluoroscopy 05/24/17 00:00 IMPRESSION: SUCCESSFUL PLACEMENT OF A 5 FR DUAL LUMEN 38 CM PICC IN THE LEFT BASILIC VEIN. Interventional Vascular Procedure 05/24/17 00:00 IMPRESSION: SUCCESSFUL PLACEMENT OF A 5 FR DUAL LUMEN 38 CM PICC IN THE LEFT BASILIC VEIN. PICC Line Insertion 05/24/17 00:00 IMPRESSION: SUCCESSFUL PLACEMENT OF A 5 FR DUAL LUMEN 38 CM PICC IN THE LEFT BASILIC VEIN. Assessment & Plan - Diagnosis (1) Osteomyelitis of cervical spine Is this a current diagnosis for this admission?: Yes Plan: Continue IV Vancomycin coverage. D/C IV Rocephin therapy in view of no clear organism coverage from culture results. She will need assisted antibiotic coverage for total 6 weeks period. (2) Acute pyelonephritis Is this a current diagnosis for this admission?: Yes (3) Acute kidney injury Is this a current diagnosis for this admission?: Yes (4) Toxic metabolic encephalopathy Is this a current diagnosis for this admission?: Yes (5) HTN (hypertension) Qualifiers: Hypertension type: essential hypertension Qualified Code(s): I10 - Essential (primary) hypertension Is this a current diagnosis for this admission?: Yes Plan: D/C Amlodipine. Restart on preadmission anti Hypertensive medication management. Amlodipine/Valsartan/HCTZ 10/320/25 mg po daily. (6) Diabetes mellitus type 2 in obese Is this a current diagnosis for this admission?: Yes (7) Hypothyroidism Qualifiers: Hypothyroidism type: unspecified Qualified Code(s): E03.9 - Hypothyroidism , unspecified Is this a current diagnosis for this admission?: Yes (8) Osteoarthritis involving multiple joints on both sides of body Is this a current diagnosis for this admission?: Yes - Time Time Spent with patient: 25-34 minutes Medications reviewed and adjusted accordingly: Yes Anticipated discharge: Home with Homehealth Within: Other - Inpatient Certification Based on my medical assessment, after consideration of the patient's comorbidities, presenting symptoms, or acuity I expect that the services needed warrant INPATIENT care.: Yes I certify that my determination is in accordance with my understanding of Medicare's requirements for reasonable and necessary INPATIENT services [42 CFR 412.3e].: Yes Medical Necessity: Need Close Monitoring Due to Risk of Patient Decompensation, Need For IV Fluids, Need For Continuous Telemetry Monitoring, Need for Pain Control, Need for IV Antibiotics, Risk of Complication if Not Cared For in Hospital Post Hospital Care: D/C [employer] Documentation - Plan Summary Plan Summary: See attending physician orders. Obtain CBC with diff. in AM.
[2017-05-28] MEDS ORDERED: (PENDING PHARMACY ID) (Amlodipine/Valsartan/Hcthiazid [Exforge Hct 10-320-25 Mg Tab] 1 EAC PO SCH (12:30)
[2017-05-28] MEDS ORDERED: AMLODIPINE BESYLATE 5 MG TABLET PO ONE (15:00)
[2017-05-28] MEDS ORDERED: HYDROCHLOROTHIAZIDE 25 MG TABLET PO ONE (15:00)
[2017-05-28] MEDS ORDERED: VALSARTAN 160 MG TABLET PO ONE (15:00)
[2017-05-28] MEDS: HYDROCODONE/ACETAMINOPHEN 7.5-325 MG TABLET PO PRN ×2 (17:42→21:55)
[2017-05-29] MEDS: VANCOMYCIN HCL 1,000 MG in DEXTROSE 5%-WATER 250 ML IV SCH ×3 (01:46→17:13)
[2017-05-29] MEDS: HYDROCODONE/ACETAMINOPHEN 7.5-325 MG TABLET PO PRN ×6 (01:46→23:10)
[2017-05-29] MEDS: LEVOTHYROXINE SODIUM 0.112 MG TABLET PO SCH (05:50)
[2017-05-29 06:24] LABS: ABSOLUTE BASOPHILS # (AUTO) 0.1 10^3/uL (0.0-0.2); ABSOLUTE EOSINOPHILS # (AUTO) 0.1 10^3/uL (0.0-0.6); ABSOLUTE LYMPHOCYTES (AUTO) 2.9 10^3/uL (0.5-4.7); ABSOLUTE MONOCYTES (AUTO) 1.3 10^3/uL (0.1-1.4); ABSOLUTE NEUT (AUTO) 10.3 10^3/uL (1.7-8.2); BASOPHILS % (AUTO) 0.7 % (0-2); EOSINOPHILS % (AUTO) 0.9 % (0-6); HEMATOCRIT 37.8 % (36.0-47.0); HEMOGLOBIN 12.8 g/dL (12.0-15.5); LYMPHOCYTES % (AUTO) 19.5 % (13-45); MEAN CORPUSCULAR HEMOGLOBIN 28.2 pg (27.0-33.4); MEAN CORPUSCULAR HGB CONC 33.8 g/dL (32.0-36.0); MEAN CORPUSCULAR VOLUME 83 fl (80-97); MONOCYTES % (AUTO) 9.1 % (3-13); PLATELET COUNT 260 10^3/uL (150-450); RED BLOOD COUNT 4.53 10^6/uL (3.72-5.28); RED CELL DISTRIBUTION WIDTH 13.8 % (11.5-14.0); SEGMENTED NEUTROPHILS % (AUTO) 69.8 % (42-78); TOTAL CELLS COUNTED % (AUTO) 100 %; WHITE BLOOD COUNT 14.8 10^3/uL (4.0-10.5)
[2017-05-29 06:48] LABS: ALANINE AMINOTRANSFERASE 40 U/L (9-52); ALBUMIN 3.2 g/dL (3.5-5.0); ALKALINE PHOSPHATASE 83 U/L (38-126); ANION GAP 9 (5-19); ASPARTATE AMINO TRANSFERASE 19 U/L (14-36); BILIRUBIN,DIRECT 0.1 mg/dL (0.0-0.4); BILIRUBIN,TOTAL 0.3 mg/dL (0.2-1.3); BLOOD UREA NITROGEN 11 mg/dL (7-20); CALCIUM 9.8 mg/dL (8.4-10.2); CARBON DIOXIDE 31 mmol/L (22-30); CHLORIDE 100 mmol/L (98-107); GLUCOSE 104 mg/dL (75-110); POTASSIUM 4.1 mmol/L (3.6-5.0); SODIUM 140.4 mmol/L (137-145)
[2017-05-29] MEDS: AMLODIPINE BESYLATE 10 MG TABLET PO SCH (09:44)
[2017-05-29] MEDS: NORMAL SALINE 10 ML SDV (SCHEDULED) IV SCH ×2 (09:44→23:10)
[2017-05-29] MEDS: VALSARTAN 160 MG TABLET PO SCH (09:45)
[2017-05-29] MEDS: HYDROCHLOROTHIAZIDE 25 MG TABLET PO SCH (09:45)
[2017-05-29] MEDS: NORMAL SALINE 1000 ML 1,000 ML IV PRN (10:04)
--- NOTE | 2017-05-29 11:40 | PDOC PROGRESS REPORT ---
Subjective Progress Note for:: 05/29/17 Subjective:: Patient reported vulval itching and claimed similarity o her having vulvovaginal yeast with antibiotic therapy. No significant discharge. No fever or chills. No nausea, vomiting or abdominal pain. No chest pain or difficulty with breathing. Reason For Visit: PYELONEPHRITIS,AMS Physical Exam Vital Signs: Temp Pulse Resp BP Pulse Ox 97.9 F 63 20 134/49 H 91 L 05/29/17 08:13 05/29/17 08:13 05/29/17 08:13 05/29/17 08:13 05/29/17 08:13 Intake & Output 05/28/17 05/29/17 05/30/17 06:59 06:59 06:59 Intake Total 2045 2325 Output Total 1000 Balance 2045 1325 Physical Exam: General appearance: PRESENT: no acute distress, obese Head exam: PRESENT: atraumatic, normocephalic Eye exam: PRESENT: conjunctiva pink, EOMI, PERRLA. ABSENT: scleral icterus Mouth exam: PRESENT: moist Respiratory exam: PRESENT: clear to auscultation rafat Cardiovascular exam: PRESENT: RRR. ABSENT: diastolic murmur, rubs, systolic murmur Vascular exam: ABSENT: pallor GI/Abdominal exam: PRESENT: normal bowel sounds, soft. ABSENT: distended, guarding, mass, organomegaly, rebound, tenderness Extremities exam: ABSENT: pedal edema Musculoskeletal exam: PRESENT: tenderness - right forearm site of prior IV access. Left arm PICC line site in satisfactory condition. Neurological exam: PRESENT: alert, awake, oriented to person, oriented to place , oriented to time, oriented to situation, CN II-XII grossly intact. ABSENT: motor sensory deficit Psychiatric exam: PRESENT: appropriate affect, normal mood. ABSENT: homicidal ideation, suicidal ideation Skin exam: PRESENT: dry, warm. ABSENT: cyanosis, rash Results Laboratory Results: 05/29/17 05:40 05/29/17 05:40 05/29/17 05/29/17 05:40 05:40 WBC 14.8 H RBC 4.53 Hgb 12.8 Hct 37.8 MCV 83 MCH 28.2 MCHC 33.8 RDW 13.8 Plt Count 260 Seg Neutrophils % 69.8 Lymphocytes % 19.5 Monocytes % 9.1 Eosinophils % 0.9 Basophils % 0.7 Absolute Neutrophils 10.3 H Absolute Lymphocytes 2.9 Absolute Monocytes 1.3 Absolute Eosinophils 0.1 Absolute Basophils 0.1 Sodium 140.4 Potassium 4.1 Chloride 100 Carbon Dioxide 31 H Anion Gap 9 BUN 11 Creatinine 0.58 Est GFR ( Amer) > 60 Est GFR (Non-Af Amer) > 60 Glucose 104 Calcium 9.8 Total Bilirubin 0.3 AST 19 ALT 40 Alkaline Phosphatase 83 Total Protein 6.0 L Albumin 3.2 L Impressions: Chest X-Ray 05/16/17 18:49 IMPRESSION: BORDERLINE CARDIOMEGALY WITH MILD VASCULAR CONGESTION. Head CT 05/16/17 18:49 IMPRESSION: NORMAL BRAIN CT WITHOUT CONTRAST. EVIDENCE OF ACUTE STROKE: NO. Cervical Spine MRI 05/22/17 00:00 IMPRESSION: ABNORMAL CONTRAST ENHANCEMENT IN THE MARROW OF THE C2 AND C3 VERTEBRAL BODIES WELL ABNORMAL SOFT TISSUE THICKENING AND ENHANCEMENT IN THE PREVERTEBRAL SOFT TISSUES AND IN THE EPIDURAL SOFT TISSUES DESCRIBED. FINDINGS ARE MOST LIKELY DUE TO INFECTION, DISCITIS WITH OSTEOMYELITIS OF THE C3 AND C4 VERTEBRAL BODIES AND ASSOCIATED INFECTIOUS PROCESS IN THE SOFT TISSUES INCLUDING THE EPIDURAL SOFT TISSUES. NO DISCRETE FORMED ABSCESS IS VISUALIZED AT THIS TIME. Guidance Fluoroscopy 05/24/17 00:00 IMPRESSION: SUCCESSFUL PLACEMENT OF A 5 FR DUAL LUMEN 38 CM PICC IN THE LEFT BASILIC VEIN. Interventional Vascular Procedure 05/24/17 00:00 IMPRESSION: SUCCESSFUL PLACEMENT OF A 5 FR DUAL LUMEN 38 CM PICC IN THE LEFT BASILIC VEIN. PICC Line Insertion 05/24/17 00:00 IMPRESSION: SUCCESSFUL PLACEMENT OF A 5 FR DUAL LUMEN 38 CM PICC IN THE LEFT BASILIC VEIN. Assessment & Plan - Diagnosis (1) Osteomyelitis of cervical spine Is this a current diagnosis for this admission?: Yes (2) Acute pyelonephritis Is this a current diagnosis for this admission?: Yes (3) Acute kidney injury Is this a current diagnosis for this admission?: Yes (4) Toxic metabolic encephalopathy Is this a current diagnosis for this admission?: Yes (5) HTN (hypertension) Qualifiers: Hypertension type: essential hypertension Qualified Code(s): I10 - Essential (primary) hypertension Is this a current diagnosis for this admission?: Yes (6) Diabetes mellitus type 2 in obese Is this a current diagnosis for this admission?: Yes (7) Hypothyroidism Qualifiers: Hypothyroidism type: unspecified Qualified Code(s): E03.9 - Hypothyroidism , unspecified Is this a current diagnosis for this admission?: Yes (8) Osteoarthritis involving multiple joints on both sides of body Is this a current diagnosis for this admission?: Yes (9) Antibiotic-induced yeast infection Is this a current diagnosis for this admission?: Yes Plan: Start on oral Diflucan single dose therapy. Continue IV vancomycin therapy for cervical spine osteomyelitis management. - Time Time Spent with patient: 25-34 minutes Medications reviewed and adjusted accordingly: Yes Anticipated discharge: Home with Homehealth Within: Other - Inpatient Certification Based on my medical assessment, after consideration of the patient's comorbidities, presenting symptoms, or acuity I expect that the services needed warrant INPATIENT care.: Yes I certify that my determination is in accordance with my understanding of Medicare's requirements for reasonable and necessary INPATIENT services [42 CFR 412.3e].: Yes Medical Necessity: Need Close Monitoring Due to Risk of Patient Decompensation, Need For IV Fluids, Need For Continuous Telemetry Monitoring, Need for IV Antibiotics, Risk of Complication if Not Cared For in Hospital Post 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
[2017-05-29] MEDS ORDERED: FLUCONAZOLE 100 MG TABLET PO ONE (12:30)
[2017-05-30] MEDS: NORMAL SALINE 1000 ML 1,000 ML IV PRN (01:21)
[2017-05-30] MEDS: VANCOMYCIN HCL 1,000 MG in DEXTROSE 5%-WATER 250 ML IV SCH ×3 (01:21→18:02)
[2017-05-30] MEDS: HYDROCODONE/ACETAMINOPHEN 7.5-325 MG TABLET PO PRN ×4 (05:04→22:37)
[2017-05-30] MEDS: LEVOTHYROXINE SODIUM 0.112 MG TABLET PO SCH (05:04)
[2017-05-30 05:53] LABS: ABSOLUTE BASOPHILS # (AUTO) 0.1 10^3/uL (0.0-0.2); ABSOLUTE EOSINOPHILS # (AUTO) 0.1 10^3/uL (0.0-0.6); ABSOLUTE LYMPHOCYTES (AUTO) 2.4 10^3/uL (0.5-4.7); ABSOLUTE MONOCYTES (AUTO) 1.2 10^3/uL (0.1-1.4); BASOPHILS % (AUTO) 0.7 % (0-2); EOSINOPHILS % (AUTO) 1.1 % (0-6); HEMATOCRIT 38.4 % (36.0-47.0); HEMOGLOBIN 12.6 g/dL (12.0-15.5); LYMPHOCYTES % (AUTO) 20.2 % (13-45); MEAN CORPUSCULAR HEMOGLOBIN 27.7 pg (27.0-33.4); MEAN CORPUSCULAR HGB CONC 32.9 g/dL (32.0-36.0); MEAN CORPUSCULAR VOLUME 84 fl (80-97); MONOCYTES % (AUTO) 10.1 % (3-13); PLATELET COUNT 248 10^3/uL (150-450); RED BLOOD COUNT 4.56 10^6/uL (3.72-5.28); RED CELL DISTRIBUTION WIDTH 14.2 % (11.5-14.0); SEGMENTED NEUTROPHILS % (AUTO) 67.9 % (42-78); TOTAL CELLS COUNTED % (AUTO) 100 %; WHITE BLOOD COUNT 11.7 10^3/uL (4.0-10.5)
[2017-05-30 06:22] LABS: ALANINE AMINOTRANSFERASE 35 U/L (9-52); ALBUMIN 3.2 g/dL (3.5-5.0); ALKALINE PHOSPHATASE 78 U/L (38-126); ANION GAP 8 (5-19); ASPARTATE AMINO TRANSFERASE 19 U/L (14-36); BILIRUBIN,DIRECT 0.1 mg/dL (0.0-0.4); BILIRUBIN,TOTAL 0.4 mg/dL (0.2-1.3); BLOOD UREA NITROGEN 13 mg/dL (7-20); CALCIUM 9.7 mg/dL (8.4-10.2); CARBON DIOXIDE 32 mmol/L (22-30); CHLORIDE 100 mmol/L (98-107); GLUCOSE 106 mg/dL (75-110); POTASSIUM 4.2 mmol/L (3.6-5.0); SODIUM 139.9 mmol/L (137-145); TOTAL PROTEIN 6.1 g/dL (6.3-8.2)
[2017-05-30] MEDS: AMLODIPINE BESYLATE 10 MG TABLET PO SCH (09:25)
[2017-05-30] MEDS: HYDROCHLOROTHIAZIDE 25 MG TABLET PO SCH (09:25)
[2017-05-30] MEDS: NORMAL SALINE 10 ML SDV (SCHEDULED) IV SCH ×2 (09:26→22:38)
[2017-05-30] MEDS: VALSARTAN 160 MG TABLET PO SCH (09:26)
[2017-05-30 10:18] LABS: VANCOMYCIN,TROUGH 19.8 ug/mL (5.0-20.0)
--- NOTE | 2017-05-30 15:22 | PDOC PROGRESS REPORT ---
Subjective Progress Note for:: 05/30/17 Subjective:: Neck pain is still bothersome with wearing off of pain medication. Some added relief from K-PAD application and requesting for device upon discharge. No chest pain, difficulty with breathing, fever or chills. Reason For Visit: PYELONEPHRITIS,AMS Physical Exam Vital Signs: Temp Pulse Resp BP Pulse Ox 98.5 F 63 20 124/36 L 95 05/30/17 11:56 05/30/17 14:00 05/30/17 11:56 05/30/17 11:56 05/30/17 11:56 Intake & Output 05/29/17 05/30/17 05/31/17 06:59 06:59 06:59 Intake Total 2325 3396 Output Total 1000 Balance 1325 3396 Physical Exam: General appearance: PRESENT: no acute distress, obese Head exam: PRESENT: atraumatic, normocephalic Eye exam: PRESENT: conjunctiva pink, EOMI, PERRLA. ABSENT: scleral icterus Mouth exam: PRESENT: moist Respiratory exam: PRESENT: clear to auscultation rafat Cardiovascular exam: PRESENT: RRR. ABSENT: diastolic murmur, rubs, systolic murmur Vascular exam: ABSENT: pallor GI/Abdominal exam: PRESENT: normal bowel sounds, soft. ABSENT: distended, guarding, mass, organomegaly, rebound, tenderness Extremities exam: ABSENT: pedal edema Musculoskeletal exam: PRESENT: tenderness - right forearm site of prior IV access. Left arm PICC line site in satisfactory condition. Neurological exam: PRESENT: alert, awake, oriented to person, oriented to place , oriented to time, oriented to situation, CN II-XII grossly intact. ABSENT: motor sensory deficit Psychiatric exam: PRESENT: appropriate affect, normal mood. ABSENT: homicidal ideation, suicidal ideation Skin exam: PRESENT: dry, warm. ABSENT: cyanosis, rash Results Laboratory Results: 05/30/17 05:00 05/30/17 05:00 05/30/17 05/30/17 05:00 05:00 WBC 11.7 H RBC 4.56 Hgb 12.6 Hct 38.4 MCV 84 MCH 27.7 MCHC 32.9 RDW 14.2 H Plt Count 248 Seg Neutrophils % 67.9 Lymphocytes % 20.2 Monocytes % 10.1 Eosinophils % 1.1 Basophils % 0.7 Absolute Neutrophils 8.0 Absolute Lymphocytes 2.4 Absolute Monocytes 1.2 Absolute Eosinophils 0.1 Absolute Basophils 0.1 Sodium 139.9 Potassium 4.2 Chloride 100 Carbon Dioxide 32 H Anion Gap 8 BUN 13 Creatinine 0.60 Est GFR ( Amer) > 60 Est GFR (Non-Af Amer) > 60 Glucose 106 Calcium 9.7 Total Bilirubin 0.4 AST 19 ALT 35 Alkaline Phosphatase 78 Total Protein 6.1 L Albumin 3.2 L Impressions: Chest X-Ray 05/16/17 18:49 IMPRESSION: BORDERLINE CARDIOMEGALY WITH MILD VASCULAR CONGESTION. Head CT 05/16/17 18:49 IMPRESSION: NORMAL BRAIN CT WITHOUT CONTRAST. EVIDENCE OF ACUTE STROKE: NO. Cervical Spine MRI 05/22/17 00:00 IMPRESSION: ABNORMAL CONTRAST ENHANCEMENT IN THE MARROW OF THE C2 AND C3 VERTEBRAL BODIES WELL ABNORMAL SOFT TISSUE THICKENING AND ENHANCEMENT IN THE PREVERTEBRAL SOFT TISSUES AND IN THE EPIDURAL SOFT TISSUES DESCRIBED. FINDINGS ARE MOST LIKELY DUE TO INFECTION, DISCITIS WITH OSTEOMYELITIS OF THE C3 AND C4 VERTEBRAL BODIES AND ASSOCIATED INFECTIOUS PROCESS IN THE SOFT TISSUES INCLUDING THE EPIDURAL SOFT TISSUES. NO DISCRETE FORMED ABSCESS IS VISUALIZED AT THIS TIME. Guidance Fluoroscopy 05/24/17 00:00 IMPRESSION: SUCCESSFUL PLACEMENT OF A 5 FR DUAL LUMEN 38 CM PICC IN THE LEFT BASILIC VEIN. Interventional Vascular Procedure 05/24/17 00:00 IMPRESSION: SUCCESSFUL PLACEMENT OF A 5 FR DUAL LUMEN 38 CM PICC IN THE LEFT BASILIC VEIN. PICC Line Insertion 05/24/17 00:00 IMPRESSION: SUCCESSFUL PLACEMENT OF A 5 FR DUAL LUMEN 38 CM PICC IN THE LEFT BASILIC VEIN. Assessment & Plan - Diagnosis (1) Osteomyelitis of cervical spine Is this a current diagnosis for this admission?: Yes (2) Acute pyelonephritis Is this a current diagnosis for this admission?: Yes (3) Acute kidney injury Is this a current diagnosis for this admission?: Yes (4) Toxic metabolic encephalopathy Is this a current diagnosis for this admission?: Yes (5) HTN (hypertension) Qualifiers: Hypertension type: essential hypertension Qualified Code(s): I10 - Essential (primary) hypertension Is this a current diagnosis for this admission?: Yes (6) Diabetes mellitus type 2 in obese Is this a current diagnosis for this admission?: Yes (7) Hypothyroidism Qualifiers: Hypothyroidism type: unspecified Qualified Code(s): E03.9 - Hypothyroidism , unspecified Is this a current diagnosis for this admission?: Yes (8) Osteoarthritis involving multiple joints on both sides of body Is this a current diagnosis for this admission?: Yes (9) Antibiotic-induced yeast infection Is this a current diagnosis for this admission?: Yes - Time Time Spent with patient: 25-34 minutes Medications reviewed and adjusted accordingly: Yes Anticipated discharge: Home with Homehealth Within: Other - Inpatient Certification Based on my medical assessment, after consideration of the patient's comorbidities, presenting symptoms, or acuity I expect that the services needed warrant INPATIENT care.: Yes I certify that my determination is in accordance with my understanding of Medicare's requirements for reasonable and necessary INPATIENT services [42 CFR 412.3e].: Yes Medical Necessity: Need Close Monitoring Due to Risk of Patient Decompensation, Need For IV Fluids, Need For Continuous Telemetry Monitoring, Need for Pain Control, Need for IV Antibiotics, Risk of Complication if Not Cared For in Hospital Post Hospital Care: D/C [employer] Worker Documentation - Plan Summary Plan Summary: See attending physician orders. Continue on all current medication management
[2017-05-31] MEDS: HYDROCODONE/ACETAMINOPHEN 7.5-325 MG TABLET PO PRN ×5 (03:31→23:06)
[2017-05-31] MEDS: VANCOMYCIN HCL 1,000 MG in DEXTROSE 5%-WATER 250 ML IV SCH ×3 (03:32→17:34)
[2017-05-31 04:01] LABS: ABSOLUTE BASOPHILS # (AUTO) 0.1 10^3/uL (0.0-0.2); ABSOLUTE EOSINOPHILS # (AUTO) 0.1 10^3/uL (0.0-0.6); ABSOLUTE LYMPHOCYTES (AUTO) 2.7 10^3/uL (0.5-4.7); ABSOLUTE MONOCYTES (AUTO) 1.3 10^3/uL (0.1-1.4); BASOPHILS % (AUTO) 0.8 % (0-2); HEMATOCRIT 36.9 % (36.0-47.0); HEMOGLOBIN 12.1 g/dL (12.0-15.5); LYMPHOCYTES % (AUTO) 26.2 % (13-45); MEAN CORPUSCULAR HEMOGLOBIN 27.7 pg (27.0-33.4); MEAN CORPUSCULAR HGB CONC 32.8 g/dL (32.0-36.0); MEAN CORPUSCULAR VOLUME 85 fl (80-97); MONOCYTES % (AUTO) 12.9 % (3-13); PLATELET COUNT 256 10^3/uL (150-450); RED BLOOD COUNT 4.37 10^6/uL (3.72-5.28); RED CELL DISTRIBUTION WIDTH 14.4 % (11.5-14.0); SEGMENTED NEUTROPHILS % (AUTO) 59.1 % (42-78); TOTAL CELLS COUNTED % (AUTO) 100 %; WHITE BLOOD COUNT 10.2 10^3/uL (4.0-10.5)
[2017-05-31 04:14] LABS: ALANINE AMINOTRANSFERASE 34 U/L (9-52); ALBUMIN 3.2 g/dL (3.5-5.0); ALKALINE PHOSPHATASE 74 U/L (38-126); ANION GAP 8 (5-19); ASPARTATE AMINO TRANSFERASE 19 U/L (14-36); BILIRUBIN,DIRECT 0.1 mg/dL (0.0-0.4); BILIRUBIN,TOTAL 0.3 mg/dL (0.2-1.3); BLOOD UREA NITROGEN 13 mg/dL (7-20); CALCIUM 9.6 mg/dL (8.4-10.2); CARBON DIOXIDE 31 mmol/L (22-30); CHLORIDE 101 mmol/L (98-107); GLUCOSE 106 mg/dL (75-110); SODIUM 140.4 mmol/L (137-145); TOTAL PROTEIN 6.1 g/dL (6.3-8.2)
[2017-05-31] MEDS: LEVOTHYROXINE SODIUM 0.112 MG TABLET PO SCH (06:13)
[2017-05-31] MEDS: HYDROCHLOROTHIAZIDE 25 MG TABLET PO SCH (09:42)
[2017-05-31] MEDS: AMLODIPINE BESYLATE 10 MG TABLET PO SCH (09:43)
[2017-05-31] MEDS: VALSARTAN 160 MG TABLET PO SCH (09:43)
[2017-05-31] MEDS: NORMAL SALINE 10 ML SDV (SCHEDULED) IV SCH ×2 (09:44→23:08)
--- NOTE | 2017-05-31 12:04 | PDOC PROGRESS REPORT ---
Subjective Progress Note for:: 05/31/17 Subjective:: No chest pain, difficulty with breathing, fever or chills. Neck pain remain a concern with exacerbation upon expiration of medication effect. She admitted to some degree of constipation that may be opiate induced. Reason For Visit: PYELONEPHRITIS,AMS Physical Exam Vital Signs: Temp Pulse Resp BP Pulse Ox 97.8 F 60 17 133/46 H 93 05/31/17 04:00 05/31/17 07:00 05/31/17 04:00 05/31/17 04:00 05/31/17 04:00 Intake & Output 05/30/17 05/31/17 06/01/17 06:59 06:59 06:59 Intake Total 3396 3764 Balance 3396 3764 Physical Exam: General appearance: PRESENT: no acute distress, obese Head exam: PRESENT: atraumatic, normocephalic Eye exam: PRESENT: conjunctiva pink, EOMI, PERRLA. ABSENT: scleral icterus Mouth exam: PRESENT: moist Respiratory exam: PRESENT: clear to auscultation rafat Cardiovascular exam: PRESENT: RRR. ABSENT: diastolic murmur, rubs, systolic murmur Vascular exam: ABSENT: pallor GI/Abdominal exam: PRESENT: normal bowel sounds, soft. ABSENT: distended, guarding, mass, organomegaly, rebound, tenderness Extremities exam: ABSENT: pedal edema Musculoskeletal exam: PRESENT: tenderness - right forearm site of prior IV access. Left arm PICC line site in satisfactory condition. Neurological exam: PRESENT: alert, awake, oriented to person, oriented to place , oriented to time, oriented to situation, CN II-XII grossly intact. ABSENT: motor sensory deficit Psychiatric exam: PRESENT: appropriate affect, normal mood. ABSENT: homicidal ideation, suicidal ideation Skin exam: PRESENT: dry, warm. ABSENT: cyanosis, rash Results Laboratory Results: 05/31/17 03:30 05/31/17 03:30 05/31/17 05/31/17 03:30 03:30 WBC 10.2 RBC 4.37 Hgb 12.1 Hct 36.9 MCV 85 MCH 27.7 MCHC 32.8 RDW 14.4 H Plt Count 256 Seg Neutrophils % 59.1 Lymphocytes % 26.2 Monocytes % 12.9 Eosinophils % 1.0 Basophils % 0.8 Absolute Neutrophils 6.0 Absolute Lymphocytes 2.7 Absolute Monocytes 1.3 Absolute Eosinophils 0.1 Absolute Basophils 0.1 Sodium 140.4 Potassium 4.0 Chloride 101 Carbon Dioxide 31 H Anion Gap 8 BUN 13 Creatinine 0.60 Est GFR ( Amer) > 60 Est GFR (Non-Af Amer) > 60 Glucose 106 Calcium 9.6 Total Bilirubin 0.3 AST 19 ALT 34 Alkaline Phosphatase 74 Total Protein 6.1 L Albumin 3.2 L Impressions: Chest X-Ray 05/16/17 18:49 IMPRESSION: BORDERLINE CARDIOMEGALY WITH MILD VASCULAR CONGESTION. Head CT 05/16/17 18:49 IMPRESSION: NORMAL BRAIN CT WITHOUT CONTRAST. EVIDENCE OF ACUTE STROKE: NO. Cervical Spine MRI 05/22/17 00:00 IMPRESSION: ABNORMAL CONTRAST ENHANCEMENT IN THE MARROW OF THE C2 AND C3 VERTEBRAL BODIES WELL ABNORMAL SOFT TISSUE THICKENING AND ENHANCEMENT IN THE PREVERTEBRAL SOFT TISSUES AND IN THE EPIDURAL SOFT TISSUES DESCRIBED. FINDINGS ARE MOST LIKELY DUE TO INFECTION, DISCITIS WITH OSTEOMYELITIS OF THE C3 AND C4 VERTEBRAL BODIES AND ASSOCIATED INFECTIOUS PROCESS IN THE SOFT TISSUES INCLUDING THE EPIDURAL SOFT TISSUES. NO DISCRETE FORMED ABSCESS IS VISUALIZED AT THIS TIME. Guidance Fluoroscopy 05/24/17 00:00 IMPRESSION: SUCCESSFUL PLACEMENT OF A 5 FR DUAL LUMEN 38 CM PICC IN THE LEFT BASILIC VEIN. Interventional Vascular Procedure 05/24/17 00:00 IMPRESSION: SUCCESSFUL PLACEMENT OF A 5 FR DUAL LUMEN 38 CM PICC IN THE LEFT BASILIC VEIN. PICC Line Insertion 05/24/17 00:00 IMPRESSION: SUCCESSFUL PLACEMENT OF A 5 FR DUAL LUMEN 38 CM PICC IN THE LEFT BASILIC VEIN. Assessment & Plan - Diagnosis (1) Osteomyelitis of cervical spine Is this a current diagnosis for this admission?: Yes (2) Acute pyelonephritis Is this a current diagnosis for this admission?: Yes (3) Acute kidney injury Is this a current diagnosis for this admission?: Yes (4) Toxic metabolic encephalopathy Is this a current diagnosis for this admission?: Yes (5) HTN (hypertension) Qualifiers: Hypertension type: essential hypertension Qualified Code(s): I10 - Essential (primary) hypertension Is this a current diagnosis for this admission?: Yes (6) Diabetes mellitus type 2 in obese Is this a current diagnosis for this admission?: Yes (7) Hypothyroidism Qualifiers: Hypothyroidism type: unspecified Qualified Code(s): E03.9 - Hypothyroidism , unspecified Is this a current diagnosis for this admission?: Yes (8) Osteoarthritis involving multiple joints on both sides of body Is this a current diagnosis for this admission?: Yes (9) Antibiotic-induced yeast infection Is this a current diagnosis for this admission?: Yes - Time Time Spent with patient: 25-34 minutes Medications reviewed and adjusted accordingly: Yes Anticipated discharge: Home with Homehealth Within: Other - Inpatient Certification Based on my medical assessment, after consideration of the patient's comorbidities, presenting symptoms, or acuity I expect that the services needed warrant INPATIENT care.: Yes I certify that my determination is in accordance with my understanding of Medicare's requirements for reasonable and necessary INPATIENT services [42 CFR 412.3e].: Yes Medical Necessity: Need Close Monitoring Due to Risk of Patient Decompensation, Need For IV Fluids, Need For Continuous Telemetry Monitoring, Need for IV Antibiotics, Risk of Complication if Not Cared For in Hospital Post Hospital Care: D/C Sports Physiologist Documentation - Plan Summary Plan Summary: See attending physician orders.
[2017-05-31] MEDS ORDERED: POLYETHYLENE GLYCOL 3350 POWDER 17 GM/1 PACKET PO SCH (13:00)
[2017-05-31] MEDS: NORMAL SALINE 1000 ML 1,000 ML IV PRN (23:04)
[2017-05-31] MEDS: DOCUSATE SODIUM 100 MG CAPSULE PO SCH (23:05)
[2017-06-01] MEDS: HYDROCODONE/ACETAMINOPHEN 7.5-325 MG TABLET PO PRN ×5 (03:23→22:44)
[2017-06-01] MEDS: VANCOMYCIN HCL 1,000 MG in DEXTROSE 5%-WATER 250 ML IV SCH ×3 (03:24→18:03)
[2017-06-01] MEDS: LEVOTHYROXINE SODIUM 0.112 MG TABLET PO SCH (05:04)
[2017-06-01 05:15] LABS: ABSOLUTE BASOPHILS # (AUTO) 0.1 10^3/uL (0.0-0.2); ABSOLUTE EOSINOPHILS # (AUTO) 0.1 10^3/uL (0.0-0.6); ABSOLUTE LYMPHOCYTES (AUTO) 2.5 10^3/uL (0.5-4.7); ABSOLUTE MONOCYTES (AUTO) 1.3 10^3/uL (0.1-1.4); ABSOLUTE NEUT (AUTO) 4.7 10^3/uL (1.7-8.2); BASOPHILS % (AUTO) 0.8 % (0-2); EOSINOPHILS % (AUTO) 1.1 % (0-6); HEMATOCRIT 35.8 % (36.0-47.0); HEMOGLOBIN 11.8 g/dL (12.0-15.5); LYMPHOCYTES % (AUTO) 28.8 % (13-45); MEAN CORPUSCULAR VOLUME 85 fl (80-97); MONOCYTES % (AUTO) 14.7 % (3-13); PLATELET COUNT 254 10^3/uL (150-450); RED BLOOD COUNT 4.21 10^6/uL (3.72-5.28); RED CELL DISTRIBUTION WIDTH 14.1 % (11.5-14.0); SEGMENTED NEUTROPHILS % (AUTO) 54.6 % (42-78); TOTAL CELLS COUNTED % (AUTO) 100 %; WHITE BLOOD COUNT 8.7 10^3/uL (4.0-10.5)
[2017-06-01 05:28] LABS: ALANINE AMINOTRANSFERASE 28 U/L (9-52); ALBUMIN 3.2 g/dL (3.5-5.0); ALKALINE PHOSPHATASE 74 U/L (38-126); ANION GAP 9 (5-19); ASPARTATE AMINO TRANSFERASE 19 U/L (14-36); BILIRUBIN,DIRECT 0.2 mg/dL (0.0-0.4); BILIRUBIN,TOTAL 0.4 mg/dL (0.2-1.3); BLOOD UREA NITROGEN 14 mg/dL (7-20); CALCIUM 9.3 mg/dL (8.4-10.2); CARBON DIOXIDE 30 mmol/L (22-30); CHLORIDE 101 mmol/L (98-107); GLUCOSE 96 mg/dL (75-110); POTASSIUM 4.1 mmol/L (3.6-5.0); SODIUM 139.7 mmol/L (137-145)
[2017-06-01] MEDS: NORMAL SALINE 10 ML SDV (SCHEDULED) IV SCH ×2 (10:09→22:44)
[2017-06-01] MEDS: VALSARTAN 160 MG TABLET PO SCH (10:09)
[2017-06-01] MEDS: POLYETHYLENE GLYCOL 3350 POWDER 17 GM/1 PACKET PO SCH (10:10)
[2017-06-01] MEDS: HYDROCHLOROTHIAZIDE 25 MG TABLET PO SCH (10:10)
[2017-06-01] MEDS: AMLODIPINE BESYLATE 10 MG TABLET PO SCH (10:10)
--- NOTE | 2017-06-01 17:51 | PDOC PROGRESS REPORT ---
Subjective Progress Note for:: 06/01/17 Subjective:: No fever or chills. No chest pain or difficulty with breathing. Remain on IV Vancomycin therapy. Arrangement concluded about intermediate antibiotic infusion service at home for cervical osteomyelitis. Reason For Visit: PYELONEPHRITIS,AMS Physical Exam Vital Signs: Temp Pulse Resp BP Pulse Ox 98.3 F 61 16 123/44 L 92 06/01/17 16:00 06/01/17 16:00 06/01/17 16:00 06/01/17 16:00 06/01/17 16:00 Intake & Output 05/31/17 06/01/17 06/02/17 06:59 06:59 06:59 Intake Total 3764 3443 Balance 3764 3443 Physical Exam: General appearance: PRESENT: no acute distress, obese Head exam: PRESENT: atraumatic, normocephalic Eye exam: PRESENT: conjunctiva pink, EOMI, PERRLA. ABSENT: scleral icterus Mouth exam: PRESENT: moist Respiratory exam: PRESENT: clear to auscultation rafat Cardiovascular exam: PRESENT: RRR. ABSENT: diastolic murmur, rubs, systolic murmur Vascular exam: ABSENT: pallor GI/Abdominal exam: PRESENT: normal bowel sounds, soft. ABSENT: distended, guarding, mass, organomegaly, rebound, tenderness Extremities exam: ABSENT: pedal edema Musculoskeletal exam: PRESENT: tenderness - right forearm site of prior IV access. Left arm PICC line site in satisfactory condition. Neurological exam: PRESENT: alert, awake, oriented to person, oriented to place , oriented to time, oriented to situation, CN II-XII grossly intact. ABSENT: motor sensory deficit Psychiatric exam: PRESENT: appropriate affect, normal mood. ABSENT: homicidal ideation, suicidal ideation Skin exam: PRESENT: dry, warm. ABSENT: cyanosis, rash Results Laboratory Results: 06/01/17 03:30 06/01/17 03:30 06/01/17 06/01/17 03:30 03:30 WBC 8.7 RBC 4.21 Hgb 11.8 L Hct 35.8 L MCV 85 MCH 28.0 MCHC 33.0 RDW 14.1 H Plt Count 254 Seg Neutrophils % 54.6 Lymphocytes % 28.8 Monocytes % 14.7 H Eosinophils % 1.1 Basophils % 0.8 Absolute Neutrophils 4.7 Absolute Lymphocytes 2.5 Absolute Monocytes 1.3 Absolute Eosinophils 0.1 Absolute Basophils 0.1 Sodium 139.7 Potassium 4.1 Chloride 101 Carbon Dioxide 30 Anion Gap 9 BUN 14 Creatinine 0.60 Est GFR ( Amer) > 60 Est GFR (Non-Af Amer) > 60 Glucose 96 Calcium 9.3 Total Bilirubin 0.4 AST 19 ALT 28 Alkaline Phosphatase 74 Total Protein 6.0 L Albumin 3.2 L Impressions: Chest X-Ray 05/16/17 18:49 IMPRESSION: BORDERLINE CARDIOMEGALY WITH MILD VASCULAR CONGESTION. Head CT 05/16/17 18:49 IMPRESSION: NORMAL BRAIN CT WITHOUT CONTRAST. EVIDENCE OF ACUTE STROKE: NO. Cervical Spine MRI 05/22/17 00:00 IMPRESSION: ABNORMAL CONTRAST ENHANCEMENT IN THE MARROW OF THE C2 AND C3 VERTEBRAL BODIES WELL ABNORMAL SOFT TISSUE THICKENING AND ENHANCEMENT IN THE PREVERTEBRAL SOFT TISSUES AND IN THE EPIDURAL SOFT TISSUES DESCRIBED. FINDINGS ARE MOST LIKELY DUE TO INFECTION, DISCITIS WITH OSTEOMYELITIS OF THE C3 AND C4 VERTEBRAL BODIES AND ASSOCIATED INFECTIOUS PROCESS IN THE SOFT TISSUES INCLUDING THE EPIDURAL SOFT TISSUES. NO DISCRETE FORMED ABSCESS IS VISUALIZED AT THIS TIME. Guidance Fluoroscopy 05/24/17 00:00 IMPRESSION: SUCCESSFUL PLACEMENT OF A 5 FR DUAL LUMEN 38 CM PICC IN THE LEFT BASILIC VEIN. Interventional Vascular Procedure 05/24/17 00:00 IMPRESSION: SUCCESSFUL PLACEMENT OF A 5 FR DUAL LUMEN 38 CM PICC IN THE LEFT BASILIC VEIN. PICC Line Insertion 05/24/17 00:00 IMPRESSION: SUCCESSFUL PLACEMENT OF A 5 FR DUAL LUMEN 38 CM PICC IN THE LEFT BASILIC VEIN. Assessment & Plan - Diagnosis (1) Osteomyelitis of cervical spine Is this a current diagnosis for this admission?: Yes (2) Acute pyelonephritis Is this a current diagnosis for this admission?: Yes (3) Acute kidney injury Is this a current diagnosis for this admission?: Yes (4) Toxic metabolic encephalopathy Is this a current diagnosis for this admission?: Yes (5) HTN (hypertension) Qualifiers: Hypertension type: essential hypertension Qualified Code(s): I10 - Essential (primary) hypertension Is this a current diagnosis for this admission?: Yes (6) Diabetes mellitus type 2 in obese Is this a current diagnosis for this admission?: Yes (7) Hypothyroidism Qualifiers: Hypothyroidism type: unspecified Qualified Code(s): E03.9 - Hypothyroidism , unspecified Is this a current diagnosis for this admission?: Yes (8) Osteoarthritis involving multiple joints on both sides of body Is this a current diagnosis for this admission?: Yes (9) Antibiotic-induced yeast infection Is this a current diagnosis for this admission?: Yes - Time Time Spent with patient: 25-34 minutes Medications reviewed and adjusted accordingly: Yes Anticipated discharge: Home with Homehealth Within: within 24 hours - Inpatient Certification Based on my medical assessment, after consideration of the patient's comorbidities, presenting symptoms, or acuity I expect that the services needed warrant INPATIENT care.: Yes I certify that my determination is in accordance with my understanding of Medicare's requirements for reasonable and necessary INPATIENT services [42 CFR 412.3e].: Yes Medical Necessity: Need Close Monitoring Due to Risk of Patient Decompensation, Need For IV Fluids, Need For Continuous Telemetry Monitoring, Need for IV Antibiotics, Risk of Complication if Not Cared For in Hospital Post Hospital Care: D/C Retail Store Assistant Documentation - Plan Summary Plan Summary: Continue all current medication management. Patient is agreeable to discharge home tomorrow.
[2017-06-01] MEDS: DOCUSATE SODIUM 100 MG CAPSULE PO SCH (22:44)
[2017-06-02] MEDS: VANCOMYCIN HCL 1,000 MG in DEXTROSE 5%-WATER 250 ML IV SCH ×3 (02:55→17:32)
[2017-06-02] MEDS: HYDROCODONE/ACETAMINOPHEN 7.5-325 MG TABLET PO PRN ×3 (02:56→14:19)
[2017-06-02 03:33] LABS: ABSOLUTE BASOPHILS # (AUTO) 0.1 10^3/uL (0.0-0.2); ABSOLUTE EOSINOPHILS # (AUTO) 0.1 10^3/uL (0.0-0.6); ABSOLUTE LYMPHOCYTES (AUTO) 2.6 10^3/uL (0.5-4.7); ABSOLUTE MONOCYTES (AUTO) 1.3 10^3/uL (0.1-1.4); ABSOLUTE NEUT (AUTO) 4.7 10^3/uL (1.7-8.2); BASOPHILS % (AUTO) 0.8 % (0-2); EOSINOPHILS % (AUTO) 1.7 % (0-6); HEMATOCRIT 35.6 % (36.0-47.0); HEMOGLOBIN 11.8 g/dL (12.0-15.5); LYMPHOCYTES % (AUTO) 29.9 % (13-45); MEAN CORPUSCULAR HEMOGLOBIN 27.9 pg (27.0-33.4); MEAN CORPUSCULAR HGB CONC 33.1 g/dL (32.0-36.0); MEAN CORPUSCULAR VOLUME 84 fl (80-97); MONOCYTES % (AUTO) 14.7 % (3-13); PLATELET COUNT 250 10^3/uL (150-450); RED BLOOD COUNT 4.23 10^6/uL (3.72-5.28); RED CELL DISTRIBUTION WIDTH 14.1 % (11.5-14.0); SEGMENTED NEUTROPHILS % (AUTO) 52.9 % (42-78); TOTAL CELLS COUNTED % (AUTO) 100 %; WHITE BLOOD COUNT 8.8 10^3/uL (4.0-10.5)
[2017-06-02 03:53] LABS: ALANINE AMINOTRANSFERASE 27 U/L (9-52); ALBUMIN 3.3 g/dL (3.5-5.0); ALKALINE PHOSPHATASE 73 U/L (38-126); ANION GAP 12 (5-19); ASPARTATE AMINO TRANSFERASE 17 U/L (14-36); BILIRUBIN,DIRECT 0.1 mg/dL (0.0-0.4); BILIRUBIN,TOTAL 0.4 mg/dL (0.2-1.3); BLOOD UREA NITROGEN 15 mg/dL (7-20); CALCIUM 9.7 mg/dL (8.4-10.2); CARBON DIOXIDE 29 mmol/L (22-30); CHLORIDE 101 mmol/L (98-107); GLUCOSE 96 mg/dL (75-110); POTASSIUM 4.1 mmol/L (3.6-5.0); SODIUM 141.5 mmol/L (137-145); TOTAL PROTEIN 6.2 g/dL (6.3-8.2)
[2017-06-02] MEDS: LEVOTHYROXINE SODIUM 0.112 MG TABLET PO SCH (05:44)
[2017-06-02] MEDS: AMLODIPINE BESYLATE 10 MG TABLET PO SCH (11:03)
[2017-06-02] MEDS: VALSARTAN 160 MG TABLET PO SCH (11:03)
[2017-06-02] MEDS: HYDROCHLOROTHIAZIDE 25 MG TABLET PO SCH (11:03)
[2017-06-02] MEDS: NORMAL SALINE 10 ML SDV (SCHEDULED) IV SCH ×2 (11:05→21:59)
[2017-06-02] MEDS: POLYETHYLENE GLYCOL 3350 POWDER 17 GM/1 PACKET PO SCH (11:05)
[2017-06-02 12:00] LABS: VANCOMYCIN,TROUGH 18.6 ug/mL (5.0-20.0)
--- NOTE | 2017-06-02 17:00 | PDOC PROGRESS REPORT ---
Subjective Progress Note for:: 06/02/17 Subjective:: No fever or chills. No chest pain or difficulty with breathing. No nausea or vomiting. Remain on IV Vancomycin therapy. Reason For Visit: PYELONEPHRITIS,AMS Physical Exam Vital Signs: Temp Pulse Resp BP Pulse Ox 98.1 F 65 18 134/39 H 91 L 06/02/17 12:00 06/02/17 14:00 06/02/17 12:00 06/02/17 12:00 06/02/17 12:00 Intake & Output 06/01/17 06/02/17 06/03/17 06:59 06:59 06:59 Intake Total 3443 2536 Balance 3443 2536 Physical Exam: General appearance: PRESENT: no acute distress, obese Head exam: PRESENT: atraumatic, normocephalic Eye exam: PRESENT: conjunctiva pink, EOMI, PERRLA. ABSENT: scleral icterus Mouth exam: PRESENT: moist Respiratory exam: PRESENT: clear to auscultation rafat Cardiovascular exam: PRESENT: RRR. ABSENT: diastolic murmur, rubs, systolic murmur Vascular exam: ABSENT: pallor GI/Abdominal exam: PRESENT: normal bowel sounds, soft. ABSENT: distended, guarding, mass, organomegaly, rebound, tenderness Extremities exam: ABSENT: pedal edema Musculoskeletal exam: PRESENT: tenderness - right forearm site of prior IV access. Left arm PICC line site in satisfactory condition. Neurological exam: PRESENT: alert, awake, oriented to person, oriented to place , oriented to time, oriented to situation, CN II-XII grossly intact. ABSENT: motor sensory deficit Psychiatric exam: PRESENT: appropriate affect, normal mood. ABSENT: homicidal ideation, suicidal ideation Skin exam: PRESENT: dry, warm. ABSENT: cyanosis, rash Results Laboratory Results: 06/02/17 03:00 06/02/17 03:00 06/02/17 06/02/17 03:00 03:00 WBC 8.8 RBC 4.23 Hgb 11.8 L Hct 35.6 L MCV 84 MCH 27.9 MCHC 33.1 RDW 14.1 H Plt Count 250 Seg Neutrophils % 52.9 Lymphocytes % 29.9 Monocytes % 14.7 H Eosinophils % 1.7 Basophils % 0.8 Absolute Neutrophils 4.7 Absolute Lymphocytes 2.6 Absolute Monocytes 1.3 Absolute Eosinophils 0.1 Absolute Basophils 0.1 Sodium 141.5 Potassium 4.1 Chloride 101 Carbon Dioxide 29 Anion Gap 12 BUN 15 Creatinine 0.64 Est GFR ( Amer) > 60 Est GFR (Non-Af Amer) > 60 Glucose 96 Calcium 9.7 Total Bilirubin 0.4 AST 17 ALT 27 Alkaline Phosphatase 73 Total Protein 6.2 L Albumin 3.3 L Impressions: Chest X-Ray 05/16/17 18:49 IMPRESSION: BORDERLINE CARDIOMEGALY WITH MILD VASCULAR CONGESTION. Head CT 05/16/17 18:49 IMPRESSION: NORMAL BRAIN CT WITHOUT CONTRAST. EVIDENCE OF ACUTE STROKE: NO. Cervical Spine MRI 05/22/17 00:00 IMPRESSION: ABNORMAL CONTRAST ENHANCEMENT IN THE MARROW OF THE C2 AND C3 VERTEBRAL BODIES WELL ABNORMAL SOFT TISSUE THICKENING AND ENHANCEMENT IN THE PREVERTEBRAL SOFT TISSUES AND IN THE EPIDURAL SOFT TISSUES DESCRIBED. FINDINGS ARE MOST LIKELY DUE TO INFECTION, DISCITIS WITH OSTEOMYELITIS OF THE C3 AND C4 VERTEBRAL BODIES AND ASSOCIATED INFECTIOUS PROCESS IN THE SOFT TISSUES INCLUDING THE EPIDURAL SOFT TISSUES. NO DISCRETE FORMED ABSCESS IS VISUALIZED AT THIS TIME. Guidance Fluoroscopy 05/24/17 00:00 IMPRESSION: SUCCESSFUL PLACEMENT OF A 5 FR DUAL LUMEN 38 CM PICC IN THE LEFT BASILIC VEIN. Interventional Vascular Procedure 05/24/17 00:00 IMPRESSION: SUCCESSFUL PLACEMENT OF A 5 FR DUAL LUMEN 38 CM PICC IN THE LEFT BASILIC VEIN. PICC Line Insertion 05/24/17 00:00 IMPRESSION: SUCCESSFUL PLACEMENT OF A 5 FR DUAL LUMEN 38 CM PICC IN THE LEFT BASILIC VEIN. Assessment & Plan - Diagnosis (1) Osteomyelitis of cervical spine Is this a current diagnosis for this admission?: Yes (2) Acute pyelonephritis Is this a current diagnosis for this admission?: Yes (3) Acute kidney injury Is this a current diagnosis for this admission?: Yes (4) Toxic metabolic encephalopathy Is this a current diagnosis for this admission?: Yes (5) HTN (hypertension) Qualifiers: Hypertension type: essential hypertension Qualified Code(s): I10 - Essential (primary) hypertension Is this a current diagnosis for this admission?: Yes (6) Diabetes mellitus type 2 in obese Is this a current diagnosis for this admission?: Yes (7) Hypothyroidism Qualifiers: Hypothyroidism type: unspecified Qualified Code(s): E03.9 - Hypothyroidism , unspecified Is this a current diagnosis for this admission?: Yes (8) Osteoarthritis involving multiple joints on both sides of body Is this a current diagnosis for this admission?: Yes (9) Antibiotic-induced yeast infection Is this a current diagnosis for this admission?: Yes - Time Time Spent with patient: 25-34 minutes Medications reviewed and adjusted accordingly: Yes Anticipated discharge: Home with Homehealth Within: within 24 hours - Inpatient Certification Based on my medical assessment, after consideration of the patient's comorbidities, presenting symptoms, or acuity I expect that the services needed warrant INPATIENT care.: Yes I certify that my determination is in accordance with my understanding of Medicare's requirements for reasonable and necessary INPATIENT services [42 CFR 412.3e].: Yes Medical Necessity: Need Close Monitoring Due to Risk of Patient Decompensation, Need For IV Fluids, Need For Continuous Telemetry Monitoring, Need for IV Antibiotics, Risk of Complication if Not Cared For in Hospital Post Hospital Care: D/C Iron Handler Documentation - Plan Summary Plan Summary: Continue all current medication management. Possible discharge home tomorrow. Delay in discharge due to inclement weather and inability to start IV antibiotic therapy at home.
[2017-06-02] MEDS: NORMAL SALINE 1000 ML 1,000 ML IV PRN (17:32)
[2017-06-02] MEDS: DOCUSATE SODIUM 100 MG CAPSULE PO SCH (21:58)
[2017-06-03] MEDS: VANCOMYCIN HCL 1,000 MG in DEXTROSE 5%-WATER 250 ML IV SCH ×2 (02:28→09:07)
[2017-06-03] MEDS: HYDROCODONE/ACETAMINOPHEN 7.5-325 MG TABLET PO PRN ×3 (02:31→15:18)
[2017-06-03] MEDS: LEVOTHYROXINE SODIUM 0.112 MG TABLET PO SCH (05:56)
[2017-06-03] MEDS: NORMAL SALINE 1000 ML 1,000 ML IV PRN (05:57)
[2017-06-03 06:51] LABS: ABSOLUTE BASOPHILS # (AUTO) 0.1 10^3/uL (0.0-0.2); ABSOLUTE EOSINOPHILS # (AUTO) 0.1 10^3/uL (0.0-0.6); ABSOLUTE NEUT (AUTO) 3.7 10^3/uL (1.7-8.2); BASOPHILS % (AUTO) 0.8 % (0-2); HEMATOCRIT 33.6 % (36.0-47.0); HEMOGLOBIN 11.2 g/dL (12.0-15.5); LYMPHOCYTES % (AUTO) 29.3 % (13-45); MEAN CORPUSCULAR HEMOGLOBIN 28.1 pg (27.0-33.4); MEAN CORPUSCULAR HGB CONC 33.4 g/dL (32.0-36.0); MEAN CORPUSCULAR VOLUME 84 fl (80-97); MONOCYTES % (AUTO) 14.3 % (3-13); PLATELET COUNT 222 10^3/uL (150-450); RED CELL DISTRIBUTION WIDTH 13.8 % (11.5-14.0); SEGMENTED NEUTROPHILS % (AUTO) 53.6 % (42-78); TOTAL CELLS COUNTED % (AUTO) 100 %; WHITE BLOOD COUNT 6.9 10^3/uL (4.0-10.5)
[2017-06-03 07:18] LABS: ALANINE AMINOTRANSFERASE 25 U/L (9-52); ALBUMIN 3.3 g/dL (3.5-5.0); ALKALINE PHOSPHATASE 73 U/L (38-126); ANION GAP 9 (5-19); ASPARTATE AMINO TRANSFERASE 17 U/L (14-36); BILIRUBIN,DIRECT 0.2 mg/dL (0.0-0.4); BILIRUBIN,TOTAL 0.5 mg/dL (0.2-1.3); BLOOD UREA NITROGEN 13 mg/dL (7-20); CALCIUM 9.8 mg/dL (8.4-10.2); CARBON DIOXIDE 31 mmol/L (22-30); CHLORIDE 101 mmol/L (98-107); GLUCOSE 96 mg/dL (75-110); POTASSIUM 4.1 mmol/L (3.6-5.0); SODIUM 141.3 mmol/L (137-145); TOTAL PROTEIN 6.2 g/dL (6.3-8.2)
[2017-06-03] MEDS: AMLODIPINE BESYLATE 10 MG TABLET PO SCH (09:05)
[2017-06-03] MEDS: VALSARTAN 160 MG TABLET PO SCH (09:05)
[2017-06-03] MEDS: HYDROCHLOROTHIAZIDE 25 MG TABLET PO SCH (09:06)
[2017-06-03] MEDS: NORMAL SALINE 10 ML SDV (SCHEDULED) IV SCH (09:06)
[2017-06-03] MEDS: POLYETHYLENE GLYCOL 3350 POWDER 17 GM/1 PACKET PO SCH (09:07)
--- NOTE | 2017-06-03 16:12 | PDOC DISCHARGE SUMMARY ---
General - Admit/Disc Date/PCP Admission Date/Primary Care Provider: 05/16/17 20:28 LYLE AGUILAR Discharge Date: 06/03/17 - Discharge Diagnosis (1) Osteomyelitis of cervical spine Is this a current diagnosis for this admission?: Yes (2) Acute pyelonephritis Is this a current diagnosis for this admission?: Yes (3) Acute kidney injury Is this a current diagnosis for this admission?: Yes (4) Toxic metabolic encephalopathy Is this a current diagnosis for this admission?: Yes (5) HTN (hypertension) Is this a current diagnosis for this admission?: Yes (6) Diabetes mellitus type 2 in obese Is this a current diagnosis for this admission?: Yes (7) Hypothyroidism Is this a current diagnosis for this admission?: Yes (8) Osteoarthritis involving multiple joints on both sides of body Is this a current diagnosis for this admission?: Yes (9) Antibiotic-induced yeast infection Is this a current diagnosis for this admission?: Yes - Additional Information Resuscitation Status: Full Code Prescriptions: Docusate Sodium [Colace 100 mg Capsule] 200 mg PO QHS #60 capsule Heparin Sodium,Porcine [Heparin Flush 10 Unit/ml 5 ml Disp.syrg] 30 unit IV .AFTER EACH USE PRN #30 disp.syrin PRN Reason: Heparin Sodium,Porcine [Heparin Flush 10 Unit/ml 5 ml Disp.syrg] 30 unit IV Q12 #60 disp.syrin Hydrocodone/Acetaminophen [Mcfall 7.5-325 mg Tablet] 1 tab PO Q4HP PRN #90 tablet PRN Reason: Polyethylene Glycol 3350 [Miralax Powder 17 gm/Packet] 17 gm PO DAILY #30 powd.pack Vancomycin/0.9 % Sod Chloride [Vancomycin 1 G/100Ml-0.9% NaCl] 1 gm IV DAILY # 30 plast..bag Home Medications: Benzonatate [Tessalon Perle 100 mg Capsule] 100 mg PO Q8HP PRN 05/16/17 Levothyroxine Sodium [Synthroid 0.112 mg Tablet] 112 mcg PO Q6AM 05/16/17 Tizanidine HCl [Zanaflex 4 mg Tablet] 2 mg PO Q8HP PRN 05/16/17 Aspirin [Aspirin EC] 81 mg PO DAILY 05/17/17 Docusate Sodium [Colace 100 mg Capsule] 200 mg PO QHS #60 capsule 06/03/17 Heparin Sodium,Porcine [Heparin Flush 10 Unit/ml 5 ml Disp.syrg] 30 unit IV .AFTER EACH USE PRN #30 disp.syrin 06/03/17 Heparin Sodium,Porcine [Heparin Flush 10 Unit/ml 5 ml Disp.syrg] 30 unit IV Q12 #60 disp.syrin 06/03/17 Hydrocodone/Acetaminophen [Mcfall 7.5-325 mg Tablet] 1 tab PO Q4HP PRN #90 tablet 06/03/17 Polyethylene Glycol 3350 [Miralax Powder 17 gm/Packet] 17 gm PO DAILY #30 powd.pack 06/03/17 Vancomycin/0.9 % Sod Chloride [Vancomycin 1 G/100Ml-0.9% NaCl] 1 gm IV DAILY # 30 plast..bag 06/03/17 History of Present Illness Patient complains of: Altered mental status History of Present Illness: NORA MENARD is a 72 year old female known to my practice who presented to the ED via EMS after she was found on the floor by son and [id number]. Patient was seen at our ED 2 days prior to her current presentation found to have significant leukocytosis and abnormal urinalysis. She was offered admission but declined and insisted upon discharge home on oral antibiotic. Son and [id number] reported episode of fall prior to her initial visit. Her neck MRI was essentially normal. At her present presentation patient was very confused and totally disoriented. Although she has been on oral Levofloxacin for 2 days she continue to demonstrate significant leukocytosis and worsening urinalysis indices. There was associated worsening renal function indices suggestive of dehydration or tubular necrosis. In view of her change in mental status and worsening laboratory evaluation findings, her family was advised hospitalization for further evaluation and management. Hospital Course Hospital Course: Patient did respond to IV antibiotic therapy and IV fluid support. Her hospitalization was further complicated by her worsening neck pain and eventual need for MRI with contrast evaluation that suggested cervical spine osteomyelitis. Her urine culture did grew Enteroccocus Faecalis. Her cervical spine osteomyelitis was treated as a case of hematogenous spread of Enteroccocus Faecalis infection and she has been managed with IV Vancomycin with significant improvement. She will remain on home infusion therapy with IV Vancomycin for 4 weeks therapy to complete total of 6 weeks of antibiotic therapy for cervical spine osteomyelitis. Physical Exam Vital Signs: Temp Pulse Resp BP Pulse Ox 97.9 F 69 18 140/58 H 92 06/03/17 12:00 06/03/17 14:00 06/03/17 12:00 06/03/17 12:00 06/03/17 12:00 Intake & Output 06/02/17 06/03/17 06/04/17 06:59 06:59 06:59 Intake Total 2536 5594 Output Total 500 Balance 2536 5094 Physical Exam: General appearance: PRESENT: no acute distress, obese Head exam: PRESENT: atraumatic, normocephalic Eye exam: PRESENT: conjunctiva pink, EOMI, PERRLA. ABSENT: scleral icterus Mouth exam: PRESENT: moist Respiratory exam: PRESENT: clear to auscultation rafat Cardiovascular exam: PRESENT: RRR. ABSENT: diastolic murmur, rubs, systolic murmur Vascular exam: ABSENT: pallor GI/Abdominal exam: PRESENT: normal bowel sounds, soft. ABSENT: distended, guarding, mass, organomegaly, rebound, tenderness Extremities exam: ABSENT: pedal edema Musculoskeletal exam: PRESENT: tenderness - right forearm site of prior IV access. Left arm PICC line site in satisfactory condition. Neurological exam: PRESENT: alert, awake, oriented to person, oriented to place , oriented to time, oriented to situation, CN II-XII grossly intact. ABSENT: motor sensory deficit Psychiatric exam: PRESENT: appropriate affect, normal mood. ABSENT: homicidal ideation, suicidal ideation Skin exam: PRESENT: dry, warm. ABSENT: cyanosis, rash Results Laboratory Results: 06/03/17 06:15 06/03/17 06:15 06/03/17 06/03/17 06:15 06:15 WBC 6.9 RBC 4.00 Hgb 11.2 L Hct 33.6 L MCV 84 MCH 28.1 MCHC 33.4 RDW 13.8 Plt Count 222 Seg Neutrophils % 53.6 Lymphocytes % 29.3 Monocytes % 14.3 H Eosinophils % 2.0 Basophils % 0.8 Absolute Neutrophils 3.7 Absolute Lymphocytes 2.0 Absolute Monocytes 1.0 Absolute Eosinophils 0.1 Absolute Basophils 0.1 Sodium 141.3 Potassium 4.1 Chloride 101 Carbon Dioxide 31 H Anion Gap 9 BUN 13 Creatinine 0.58 Est GFR ( Amer) > 60 Est GFR (Non-Af Amer) > 60 Glucose 96 Calcium 9.8 Total Bilirubin 0.5 AST 17 ALT 25 Alkaline Phosphatase 73 Total Protein 6.2 L Albumin 3.3 L Impressions: Chest X-Ray 05/16/17 18:49 IMPRESSION: BORDERLINE CARDIOMEGALY WITH MILD VASCULAR CONGESTION. Head CT 05/16/17 18:49 IMPRESSION: NORMAL BRAIN CT WITHOUT CONTRAST. EVIDENCE OF ACUTE STROKE: NO. Cervical Spine MRI 05/22/17 00:00 IMPRESSION: ABNORMAL CONTRAST ENHANCEMENT IN THE MARROW OF THE C2 AND C3 VERTEBRAL BODIES WELL ABNORMAL SOFT TISSUE THICKENING AND ENHANCEMENT IN THE PREVERTEBRAL SOFT TISSUES AND IN THE EPIDURAL SOFT TISSUES DESCRIBED. FINDINGS ARE MOST LIKELY DUE TO INFECTION, DISCITIS WITH OSTEOMYELITIS OF THE C3 AND C4 VERTEBRAL BODIES AND ASSOCIATED INFECTIOUS PROCESS IN THE SOFT TISSUES INCLUDING THE EPIDURAL SOFT TISSUES. NO DISCRETE FORMED ABSCESS IS VISUALIZED AT THIS TIME. Guidance Fluoroscopy 05/24/17 00:00 IMPRESSION: SUCCESSFUL PLACEMENT OF A 5 FR DUAL LUMEN 38 CM PICC IN THE LEFT BASILIC VEIN. Interventional Vascular Procedure 05/24/17 00:00 IMPRESSION: SUCCESSFUL PLACEMENT OF A 5 FR DUAL LUMEN 38 CM PICC IN THE LEFT BASILIC VEIN. PICC Line Insertion 05/24/17 00:00 IMPRESSION: SUCCESSFUL PLACEMENT OF A 5 FR DUAL LUMEN 38 CM PICC IN THE LEFT BASILIC VEIN. Qualifiers PATEINT BEING DISCHARGED WITH ANY OF THE FOLLOWING DIAGNOSIS?: No Plan Discharge Plan: Discharge home today with home infusion service on IV Vancomycin therapy. Follow up in the office as instructed upon discharge.
[2017-06-03 16:30] VITALS: BP 125/34
== END 2017-06-03 17:00 | disposition home health service (06) | DRG 689 ==
LOC: ER 17:21 → EH 20:28 → 4S 22:50 → 5 05-22 17:59
PROVIDERS: ADMIT Internal Medicine Geriatric Medicine; ATTEND Internal Medicine Geriatric Medicine
PROC: 02HV33Z Insertion of Infusion Device into Superior Vena Cava, Percutaneous Approach (ICD-10-PCS; principal; 2017-05-24)
PROC: B518ZZA Fluoroscopy of Superior Vena Cava, Guidance (ICD-10-PCS; 2017-05-24)
PROC: B548ZZA Ultrasonography of Superior Vena Cava, Guidance (ICD-10-PCS; 2017-05-24)
DX: N10 Acute pyelonephritis (principal); G92 Toxic encephalopathy; M46.22 Osteomyelitis of vertebra, cervical region; N17.9 Acute kidney failure, unspecified; I10 Essential (primary) hypertension; E11.9 Type 2 diabetes mellitus without complications; R09.02 Hypoxemia; E86.0 Dehydration; K59.00 Constipation, unspecified; B96.20 Unspecified Escherichia coli [E. coli] as the cause of diseases classified elsewhere; E03.9 Hypothyroidism, unspecified; M19.90 Unspecified osteoarthritis, unspecified site; M54.12 Radiculopathy, cervical region; B95.2 Enterococcus as the cause of diseases classified elsewhere; B37.3 Candidiasis of vulva and vagina; F17.210 Nicotine dependence, cigarettes, uncomplicated; T36.95XA Adverse effect of unspecified systemic antibiotic, initial encounter; Y92.230 Patient room in hospital as the place of occurrence of the external cause; Z79.2 Long term (current) use of antibiotics; Z79.82 Long term (current) use of aspirin; Z79.899 Other long term (current) drug therapy
CPT/HCPCS: 36415; 36569; 70450; 71010; 71020; 72141; 72156; 76937; 77001; 80048; 80053; 80202; 80307; 81001; 82565; 82570; 82962; 83036; 83735; 84156; 85025; 87086; 87088; 87186; 93005; 93010; 96365; 96375; 99285; A9577; G8978-GP; G8979-GP; J0696; J1642; J2310; J3370; J3480; J3490; J7030; J7060

== ENCOUNTER → 2019-01-10 | Outpatient (CLI) | payer MEDICARE, OTHER ==
--- NOTE | 2019-01-10 14:57 | RADIOLOGY REPORT (SQ) ---
EXAM DESCRIPTION: CAROTID DOPPLER COMPLETED DATE/TIME: 01/10/2019 2:38 pm REASON FOR STUDY: PVD I73.9 PERIPHERAL VASCULAR DISEASE, UNSPECIFIED COMPARISON: None. TECHNIQUE: Grayscale ultrasound, Doppler velocity and spectra, and color Doppler images acquired of the extra-cranial carotid and vertebral arteries. Images stored on PACS. LIMITATIONS: None. FINDINGS: RIGHT CAROTID CCA Velocities: Within normal limits. ICA Velocities Peak systolic 109 cm/s. End diastolic 26 cm/s. Proximal ICA/CCA peak systolic ratio 1.07. There is a small amount of plaque in the carotid bulb and proximal ICA. LEFT CAROTID CCA Velocities: Within normal limits. ICA Velocities Peak systolic 109 cm/s. End diastolic 30 sub cm/s. Proximal ICA/CCA peak systolic ratio 1.11. There is plaque in the common carotid and carotid bulb and minimal plaque in the proximal ICA. VERTEBRAL ARTERIES: Antegrade flow. Normal waveforms. SUBCLAVIAN ARTERIES: No finding. OTHER: No other significant finding. IMPRESSION: NO HEMODYNAMICALLY SIGNIFICANT STENOSIS. COMMENT: Quality ID #[id number]: Velocity criteria are extrapolated from the diameter data as defined by t he Society of Radiologists in Ultrasound Consensus Conference. Radiology 2003: 229; 340-346. TECHNICAL DOCUMENTATION: JOB ID: [id number] [employer]- All Rights Reserved Reading location - IP/workstation name: [email or web address]
--- NOTE | 2019-01-10 16:11 | XCELERA REPORT ---
[address] [address] Lower Extremity Arterial Evaluation Name: NORA MENARD Age: 73 yrs Gender: Female : 1945 Patient Status: Outpatient Patient Location: RAD Study Date: 01/10/2019 08:21 AM Procedure: A color flow and duplex scan of the lower extremity arteries was performed bilaterally with velocity and waveform anaylsis. Reason For Study: PVD Ordering Physician: LYLE AGUILAR Performed By: Theodore Pruitt Measurements and Calculations Right Left MEAT APPRENTICE PSV 160.6 133.6 cm/sec Prox PFA PSV -105.9 -178.8cm/sec Prox SFA PSV 106.4 103.7 cm/sec Mid SFA PSV -169.9 -148.5cm/sec Dist SFA PSV -87.1 -111.3cm/sec Prox Pop A PSV 69.9 67.2 cm/sec Dist DEONTE PSV 109.7 108.1 cm/sec Dist MATERIAL ATTENDANT PSV 95.3 145.3 cm/sec Ger Pedis PSV 91.8 100.9 cm/sec Right Side Arterial Evaluation Normal velocity and triphasic waveforms noted from the Common Femoral artery to the infrageniculate vessels . . Left Side Arterial Evaluation Normal velocity and triphasic waveforms noted from the Common Femoral artery to the infrageniculate vessels . Interpretation Summary No hemodynamically significant lesions in the bilateral lower extremities, on duplex imaging, at rest. : LYLE AGUILAR > Pola Wallace
== END ==
LOC: RAD 07:36
PROVIDERS: ATTEND Internal Medicine Geriatric Medicine
DX: I73.9 Peripheral vascular disease, unspecified (principal)
CPT/HCPCS: 93880; 93925